=== PATIENT | female | born 1965 | race Caucasian/White ===

== ENCOUNTER → 2018-06-01 16:59 | Outpatient (CLI) | payer MEDICAID, SELFPAY ==
--- NOTE | 2018-06-01 17:11 | XR_ITS ---
XR chest 2V HISTORY: ITS.REASON: COUGH, WEIGHT LOSS, DYSPNEA, shortness of breath, history of smoking ORDERING PHYSICIAN: Kassandra Earl PATIENT AGE: 52 years COMPARISON: None FINDINGS: The cardiomediastinal silhouette and pulmonary vascularity are within normal limits. The lungs are clear without infiltrates, suspicious nodules, or pleural effusions. There is mild hyperinflation with attenuation of the peripheral pulmonary vessels suggesting COPD. There is a nodular opacity at both 6 interspaces anteriorly which may be due to nipple shadows. No acute bony abnormalities. IMPRESSION: 1. No acute finding. 2. COPD 3. Possible nipple shadows which may be confirmed with nipple markers
[2018-06-01 17:16] LABS: Basophils % 0.3 % (0.1-2.0); Eosinophils # 0.1 K/mm3 (0.0-0.4); Eosinophils % 1.7 % (0.1-12.0); Hematocrit 47.8 % (37.0-47.0); Hemoglobin 15.2 g/dL (12.2-16.2); Lymphocytes # 2.8 K/mm3 (0.7-4.5); Lymphocytes % 40.6 K/mm3 (10-50); Mean Corpuscular HGB Conc 31.8 g/dL (31.8-35.4); Mean Corpuscular Hemoglobin 29.2 pg (27.0-31.2); Mean Corpuscular Volume 91.8 fl (81-99); Mean Platelet Volume 7.3 fl (7.4-10.4); Monocytes # 0.4 K/mm3 (0.1-1.0); Monocytes % 5.3 % (1.7-9.3); Neutrophils # 3.6 K/mm3 (1.8-7.8); Platelet Count 247 K/mm3 (142-424); Red Cell Distribution Width 12.8 % (11.5-17.5); White Blood Count 6.9 K/mm3 (4.8-10.8)
[2018-06-01 18:03] LABS: Alanine Aminotransferase 20 U/L (12-78); Albumin Level 4.1 gm/dL (3.4-5.0); Albumin/Globulin Ratio 1.5 (1.1-1.8); Alkaline Phosphatase 64 U/L (46-116); Anion Gap 11.8 mEq/L (5-15); Aspartate Amino Transferase 10 U/L (15-37); Bilirubin,Total 0.5 mg/dL (0.2-1.0); Blood Urea Nitrogen 9 mg/dL (7-18); Calcium 9.4 mg/dL (8.5-10.1); Carbon Dioxide 31 mmol/L (21.0-32.0); Chloride 107 mmol/L (98-107); Creatinine,Serum 0.94 mg/dL (0.55-1.02); Estimated Glomerular Filt Rate 62 ml/min (>60); GFR (African American) 75 ML/MIN (>60); Globulin 2.8 gm/dl (1.3-3.2); Glucose 91 mg/dL (74-106); Potassium 4.8 mmoL/L (3.5-5.1); Sodium 145 mmol/L (136-145); Thyroid Stimulating Hormone 1.52 uIU/ml (0.358-3.740); Total Protein,Serum 6.9 gm/dL (6.4-8.2)
== END ==
PROVIDERS: PCP Nurse Practitioner Family; Visit Provider Nurse Practitioner Family
DX: R06.09 Other forms of dyspnea (principal); R63.4 Abnormal weight loss; R05 Cough
CPT/HCPCS: 36415; 71046; 80053; 84443; 85025

== ENCOUNTER → 2018-06-07 08:16 | Outpatient (CLI) | payer MEDICAID, SELFPAY | PROVIDERS: Family Provider Internal Medicine Adolescent Medicine; PCP Nurse Practitioner Family; Visit Provider Nurse Practitioner Family | DX: R06.09 Other forms of dyspnea (principal) | CPT/HCPCS: 93017 ==

== ENCOUNTER → 2018-09-15 08:41 | Outpatient (CLI) | payer MEDICAID, SELFPAY ==
--- NOTE | 2018-09-15 08:44 | FL_ITS ---
FL barium enema double contrast CLINICAL INDICATION: Recent colonoscopy with polyps, pain ITS.REASON: stoamch pain ORDERING PHYSICIAN: Carlos Casey MD PATIENT AGE: 52 years Comparison: None Fluoroscopy time: 2 minutes 25 seconds FINDINGS: The colon was visualized from rectum to cecum with mild reflux of contrast into the terminal ileum. No constricting lesions or fixed polypoid filling defects are evident. There are a few diverticula within the proximal sigmoid colon. IMPRESSION: 1. Mild diverticulosis of the sigmoid colon. 2. Otherwise negative air contrast barium
== END ==
PROVIDERS: PCP Nurse Practitioner Family; Visit Provider Surgery
DX: R63.4 Abnormal weight loss (principal)
CPT/HCPCS: 74270

== ENCOUNTER → 2019-03-28 12:37 | Outpatient (CLI) | payer MEDICAID, SELFPAY ==
[2019-03-28 13:21] LABS: Basophils % 0.2 % (0.1-2.0); Eosinophils # 0.1 K/mm3 (0.0-0.4); Eosinophils % 1.2 % (0.1-12.0); Hematocrit 50.1 % (37.0-47.0); Lymphocytes # 2.2 K/mm3 (0.7-4.5); Lymphocytes % 34.6 % (10-50); Mean Corpuscular Volume 93.6 fl (81-99); Mean Platelet Volume 7.9 fl (7.4-10.4); Monocytes # 0.3 K/mm3 (0.1-1.0); Monocytes % 5.3 % (1.7-9.3); Neutrophils # 3.7 K/mm3 (1.8-7.8); Neutrophils % 58.7 % (37.0-80.0); Platelet Count 260 K/mm3 (142-424); Red Blood Count 5.35 M/mm3 (4.20-5.40); Red Cell Distribution Width 12.7 % (11.5-17.5); White Blood Count 6.3 K/mm3 (4.8-10.8)
[2019-03-28 13:58] LABS: Alanine Aminotransferase 25 U/L (12-78); Albumin Level 4.2 gm/dL (3.4-5.0); Albumin/Globulin Ratio 1.4 (1.1-1.8); Alkaline Phosphatase 66 U/L (46-116); Anion Gap 13.8 mEq/L (5-15); Aspartate Amino Transferase 15 U/L (15-37); Bilirubin,Total 0.6 mg/dL (0.2-1.0); Blood Urea Nitrogen 11 mg/dL (7-18); Calcium 9.5 mg/dL (8.5-10.1); Carbon Dioxide 29 mmol/L (21.0-32.0); Chloride 106 mmol/L (98-107); Creatinine,Serum 0.79 mg/dL (0.55-1.02); Estimated Glomerular Filt Rate 76 ml/min (>60); Free Thyroxine Index 2.5 ug/dL (5.93-13.13); GFR (African American) 92 ML/MIN (>60); Glucose 100 mg/dL (74-106); Potassium 4.8 mmoL/L (3.5-5.1); Sodium 144 mmol/L (136-145); T4 (Thyroxine) 7.8 ug/dl (4.7-13.3); Thyroid Stimulating Hormone 1.49 uIU/ml (0.358-3.740); Total Protein,Serum 7.2 gm/dL (6.4-8.2); Triiodothryronine (T3) Uptake 32 % (31-39)
[2019-03-29 16:26] LABS: Vitamin B12 341 pg/mL (232-1245); Vitamin D 25 Hydroxy 37.8 ng/mL (30.0-100.0)
== END ==
PROVIDERS: Visit Provider Internal Medicine Adolescent Medicine
DX: K29.90 Gastroduodenitis, unspecified, without bleeding (principal); E53.8 Deficiency of other specified B group vitamins; R63.4 Abnormal weight loss
CPT/HCPCS: 36415; 80053; 82607; 82652; 84436; 84443; 84479; 85025

== ENCOUNTER → 2020-08-14 15:46 | Outpatient (CLI) | payer OTHER, SELFPAY ==
[2020-08-14 17:46] LABS: Basophils # 0.1 K/mm3 (0-0.2); Basophils % 0.7 % (0.1-2.0); Eosinophils # 0.2 K/mm3 (0.0-0.4); Eosinophils % 2.4 % (0.1-12.0); Hematocrit 48.3 % (37.0-47.0); Hemoglobin 15.9 g/dL (12.2-16.2); Lymphocytes # 3.7 K/mm3 (0.7-4.5); Lymphocytes % 47.4 % (10-50); Mean Corpuscular Hemoglobin 30.5 pg (27.0-31.2); Mean Corpuscular Volume 92.5 fl (81-99); Mean Platelet Volume 8.1 fl (7.4-10.4); Monocytes # 0.5 K/mm3 (0.1-1.0); Monocytes % 6.4 % (1.7-9.3); Neutrophils # 3.3 K/mm3 (1.8-7.8); Neutrophils % 43.1 % (37.0-80.0); Platelet Count 272 K/mm3 (142-424); Red Blood Count 5.22 M/mm3 (4.20-5.40); Red Cell Distribution Width 13.3 % (11.5-17.5); White Blood Count 7.7 K/mm3 (4.8-10.8)
[2020-08-14 20:09] LABS: Chloride 105 mmol/L (98-107); Potassium 4.5 mmoL/L (3.5-5.1); Sodium 141 mmol/L (136-145)
[2020-08-14 20:11] LABS: Blood Urea Nitrogen 14 mg/dl (7-17); Estimated Glomerular Filt Rate 65 ml/min (>60); GFR (African American) 79 ML/MIN (>60)
[2020-08-14 20:12] LABS: Alanine Aminotransferase 11 U/L (12-78); Albumin Level 4.3 g/dl (3.5-5.0); Albumin/Globulin Ratio 1.6 (1.1-1.8); Alkaline Phosphatase 57 U/L (38-126); Anion Gap 10.5 mEq/L (5-15); Aspartate Amino Transferase 22 U/L (14-36); Bilirubin,Total 0.5 mg/dl (0.2-1.3); Calcium 9.7 mg/dl (8.4-10.2); Carbon Dioxide 30 mmol/L (22.0-30.0); Globulin 2.7 g/dL (1.3-3.2); Glucose 84 mg/dl (74-100)
[2020-08-14 20:42] LABS: Thyroid Stimulating Hormone 1.35 uIU/mL (0.465-4.68)
== END ==
PROVIDERS: PCP Nurse Practitioner Family; Visit Provider Nurse Practitioner Family
DX: R42 Dizziness and giddiness (principal); R00.2 Palpitations; R40.4 Transient alteration of awareness
CPT/HCPCS: 36415; 80053; 84443; 85025; 93270

== ENCOUNTER → 2020-08-27 09:32 | Outpatient (CLI) | payer OTHER, SELFPAY ==
--- NOTE | 2020-08-27 | CA_ITS ---
APPROVED REPORT Sports Development Officer: CT Laterality: Bilateral Study Quality: Good Indications: Dizziness and Vertigo Risk Factors Smoking Doppler Spectral Velocity Analysis ECA (R) 84.50/ cm/s ECA (L) 56.00/ cm/s dICA (R) 63.60/25.10 cm/s dICA (L) 69.50/31.00 cm/s Marsha (R) 54.00/19.80 cm/s Marsha (L) 79.70/28.90 cm/s pICA (R) 60.40/23.50 cm/s pICA (L) 52.20/24.40 cm/s dCCA (R) 56.60/17.00 cm/s dCCA (L) 44.80/13.30 cm/s pCCA (R) 60.50/19.60 cm/s pCCA (L) 61.50/13.40 cm/s Vert (R) 34.20/ cm/s Vert (L) 42.40/ cm/s ICA/CCA 1.10 ICA/CCA 1.80 Findings Duplex evaluation demonstrates stenosis of the right proximal internal carotid artery <20%. Duplex evaluation demonstrates stenosis of the left proximal internal carotid artery <20%. Duplex evaluation demonstrates antegrade flow of the bilateral Vertebral Arteries. Conclusion Duplex evaluation demonstrates stenosis of the right proximal internal carotid artery <20%. Duplex evaluation demonstrates stenosis of the left proximal internal carotid artery <20%. Duplex evaluation demonstrates antegrade flow of the bilateral Vertebral Arteries. Electronically signed by : Jossue Ospina MD 08/27/2020 16:20:17
== END ==
PROVIDERS: PCP Nurse Practitioner Family; Visit Provider Nurse Practitioner Family
DX: R42 Dizziness and giddiness (principal)
CPT/HCPCS: 93306; 93880

== ENCOUNTER → 2021-07-01 09:10 | Outpatient (CLI) | payer OTHER, SELFPAY | PROVIDERS: PCP Nurse Practitioner Family; Visit Provider Nurse Practitioner | DX: Z20.822 Contact with and (suspected) exposure to COVID-19 (principal) | CPT/HCPCS: C9803; U0003; U0005 ==

== ENCOUNTER → 2021-09-07 13:11 | Outpatient (CLI) | payer OTHER, SELFPAY | PROVIDERS: PCP Nurse Practitioner Family; Visit Provider Nurse Practitioner Family | DX: Z20.822 Contact with and (suspected) exposure to COVID-19 (principal) | CPT/HCPCS: C9803; U0003; U0005 ==

== ENCOUNTER → 2022-04-19 09:38 | Outpatient (CLI) | payer OTHER, SELFPAY | PROVIDERS: PCP Nurse Practitioner Family; Visit Provider Surgery | DX: Z01.812 Encounter for preprocedural laboratory examination (principal); Z20.822 Contact with and (suspected) exposure to COVID-19; Z12.11 Encounter for screening for malignant neoplasm of colon; Z86.010 Personal history of colon polyps | CPT/HCPCS: C9803; U0003; U0005 ==

== ENCOUNTER 2022-04-22 09:23 | Day surgery (SDC) | payer OTHER, SELFPAY ==
[2022-04-18 11:34] VITALS: BMI 20.2
[2022-04-22] VITALS (7 sets, daily range): BP systolic 107–134; BP diastolic 59–90; PULSE 53–81; RESP 18; TEMP 36.1–36.2; O2SAT 95–100
--- NOTE | 2022-04-22 10:01 | P.PN_ITS ---
[facility] Anesthesia Checklist - Patient Identification Patient Identification: Arm Band - Structural Data Admitted From: Home Planned Operative Procedure/s: Colonoscopy Consent for Planned Operative Procedure(s) Verified: Yes - NPO Status Verified Time NPO: 05:30 (Prep) - Additional verifications Anesthesia Reactions: No Hx Blood Transfusions: No Blood Transfusion Reaction: No - Airway Assessment C-Spine Mobility Assessed: Yes TMJ Mobility Assessed: Yes Dentition: Poor Dentition - Neurological Assessment Level of Consciousness: Awake Hx Seizures: No Numbness or tingling in extremities: No - Anesthesia Plan Anesthesia Risk discussed: Yes Anesthesia Plan: Verified ASA Class: I Anesthesia Type: MAC [facility] History I have reviewed the patient's past medical history: Yes Medical History: Reports:: Gastroesophageal Reflux Disease(GERD) Denies:: Cancer, Diabetes Mellitus Type 1, Diabetes Mellitus Type 2, Hypertension, Internal Pacemaker, Lung Disease, MRSA, Seizures *Have you ever received a pneumonia vaccine?: No *Have you received a flu vaccine this season?: No Other Medical History: Denies: Blood Transfusion Reaction Anesthesia experience/problems:: None Laterality Cases: Left: Lumpectomy Other Surgeries: Yes: Colonoscopy, EGD, Other. No: Pacemaker Amputation: No - *Social History Last grade of school completed: 9th or 10th Smoking Status: Current every day smoker Tobacco Type: cigarettes # Packs/Day (cigarettes): 1 Alcohol Intake: never Substance Use Type: denies use *Occupational Status:: employed Housing: house Household Members: spouse *Travel in the last 8 weeks: None Family Hx:: No significant family history
--- NOTE | 2022-04-22 10:57 | HMH.SCOPE ---
- Procedure: Date: 04/22/22 Patient Date of :: 1965 Procedure Performed:: Colonoscopy with polypectomy Indications:: History of colon polyps Diverticulosis Note: Prior large complex adenomatous polyp excised at 15 cm (tattoo placed). Most recent colonoscopy in August 2018 revealed this site to be without concerning change. A new sessile serrated adenoma close to the ileocecal valve was removed. Tubular adenomas from the transverse colon and at 30 cm were also removed. Fairly severe spasticity and tortuosity were confirmed and a follow-up barium enema was completed. Barium enema revealed sigmoid diverticulosis but was otherwise normal. Performing Provider:: Carlos Casey MD Referring Provider:: . Sedation:: Monitored anesthesia care Procedure:: After informed consent was obtained the patient was taken to the endoscopy suite. Sedation ensued after the patient was transferred to the left lateral decubitus position. Pulse, blood pressure, and oxygen saturation were monitored throughout the procedure. Digital rectal exam revealed no significant abnormality. The colonoscope was placed in position. The entire colon was evaluated. The colonoscope was carefully removed and the patient was transferred to recovery in stable condition. Please see findings and specimens below for detail. Findings:: Bowel preparation relatively fair Severe tortuosity (as noted on prior evaluation) Scattered sigmoid diverticulosis unchanged Tattoo site at 15 cm appeared normal Polyp at 25 cm Specimens:: Polyp at 25 cm (cold snare) Recommendations:: Timing of repeat colonoscopy is pending pathology but will likely be between 3-5 years. Complications:: No immediate Estimated blood obtained (mL): 1
== END 2022-04-22 11:50 | disposition home or self-care (01) ==
LOC: OUTP 09:25
PROVIDERS: PCP Nurse Practitioner Family; Visit Provider Surgery
PROC: 0DJD8ZZ Inspection of Lower Intestinal Tract, Via Natural or Artificial Opening Endoscopic (ICD-10-PCS; CPT 45385; principal; 2022-04-22 10:30)
DX: Z12.11 Encounter for screening for malignant neoplasm of colon (principal); K57.90 Diverticulosis of intestine, part unspecified, without perforation or abscess without bleeding; Z86.010 Personal history of colon polyps; K21.9 Gastro-esophageal reflux disease without esophagitis; Z79.899 Other long term (current) drug therapy
CPT/HCPCS: 45385

== ENCOUNTER 2022-04-27 16:12 | Emergency (ER) | payer OTHER, SELFPAY ==
[2022-04-27 16:48] VITALS: BP 113/72; PULSE 86; RESP 17; TEMP 37.2; O2SAT 97; BMI 19.9
[2022-04-27 16:52] LABS: UTC Strep Screen (Rapid) Negative (Negative)
--- NOTE | 2022-04-27 17:44 | HMH.EDUTC ---
[facility] Disposition Clinical Impression: COVID-19 Disposition: Home, Self-Care Condition on Discharge: Good Instructions: DI for COVID-19 (Suspected or Confirmed ), Preventing the Spread of Coronavirus Discharge Instructions Additional Instructions: Drink plenty of fluids. Take tylenol or ibuprofen for pain or fever. Take the medications as directed. Follow up with your regular doctor. GO TO THE ER FOR ANY WORSENING SYMPTOMS Prescriptions: Ondansetron [Zofran 4mg ODT] 4 mg PO Q8HP PRN #20 tab PRN Reason: Nausea Transmission Status: Received by [id number] Benzonatate [Benzonatate 100mg cap] 100 mg PO TIDP PRN #30 cap PRN Reason: Cough Transmission Status: Received by [id number] Nirmatrelvir/Ritonavir [Paxlovid 2X150 mg-100 mg (Eua)] 1 packet PO DIRECTED 5 Days #1 packet Transmission Status: Received by [id number] Referrals: Khadijah Mejia APRN [Primary Care Provider] - Forms: Work/School Release Time of Disposition: 17:45 Medical Decision Making - Medical Records Medical records reviewed: No: I reviewed the patient's medical records. - Romero Inquiry Pt receiving controlled substance: No Vital Signs: 04/27/22 16:48 04/27/22 17:47 Temperature 98.9 F 98.9 F Temperature Source Oral Pulse Rate 86 Pulse Rate [Left] 86 Respiratory Rate 17 17 Blood Pressure 113/72 Blood Pressure [Right Arm] 113/72 Blood Pressure Mean [Right Arm] 85 02 Sat by Pulse Oximetry 97 - Lab Data Lab Results 04/27/22 16:42: Strep Scn Rapid Clinic Negative Orders (Tests/Meds): ORDERS Category Date Time Status Strep Screen Confirmation Stat Micro 04/27/22 16:42 Received [facility] HPI - General Stated complaint: Covid test, Sore throat chills,HOPKINS Body Aches Time Seen by Provider: 04/27/22 16:50 Mode of Arrival: Ambulatory Source of Information: Patient Limitations: No Limitations Description of Symptoms (Recalled from Triage Doc. by RN): patient had an at home positive covid test. symptoms began last night and include sore throat, chills, headache, body aches. HEENT Symptoms (Recalled from RN notes): Yes Resp Symptoms (Recalled from RN notes): Yes Skin Symptoms (Recalled from RN notes): No MS Symptoms (Recalled from RN notes): No Functional Status (Recalled from RN notes): n/a - History of Present Illness Provider Complaint: She has had sinus congestion, sore throat and a runny nose since yesterday. She tested positive on a home covid test, but she needs a pcr test for her employer. - Related Data Home Medications Medication Instructions Recorded Confirmed Famotidine [Pepcid AC] 20 mg PO DAILY 04/18/22 04/22/22 Previous Rx's Medication Instructions Recorded Benzonatate [Benzonatate 100mg 100 mg PO TIDP PRN #30 cap 04/27/22 cap] Nirmatrelvir/Ritonavir [Paxlovid 1 packet PO DIRECTED 5 Days #1 04/27/22 2X150 mg-100 mg (Eua)] packet Ondansetron [Zofran 4mg ODT] 4 mg PO Q8HP PRN #20 tab 04/27/22 Allergies Allergy/AdvReac Type Severity Reaction Status Date / Time No Known Allergies Allergy Verified 04/27/22 16:51 - Worker's Comp Is this a Worker's Comp case?: No [facility] History - Hepatitis A Screen Attestation statement:: This patient has been screened for Hepatitis A risk factors. I have reviewed the patient's past medical history: Yes Medical History: Reports:: Gastroesophageal Reflux Disease(GERD) Denies:: Cancer, Diabetes Mellitus Type 1, Diabetes Mellitus Type 2, Hypertension, Internal Pacemaker, Lung Disease, MRSA, Seizures Other Medical History: Denies: Blood Transfusion Reaction Laterality Cases: Left: Lumpectomy Other Surgeries: Yes: Colonoscopy, EGD, Other. No: Pacemaker Amputation: No - Social History Smoking Status: Current every day smoker Tobacco Type: cigarettes # Packs/Day (cigarettes): 1 Alcohol Intake: never Substance Use Type: denies use Occupational Status: employed Housing: hous
[2022-04-27 17:47] VITALS: BP 113/72; PULSE 86; RESP 17; TEMP 37.2
== END 2022-04-27 17:47 | disposition home or self-care (01) ==
PROVIDERS: Emergency Provider Nurse Practitioner Family; PCP Nurse Practitioner Family
DX: U07.1 COVID-19 (principal)
CPT/HCPCS: 87880; 99212; C9803; G0463; U0003; U0005

== ENCOUNTER → 2022-07-14 14:57 | Outpatient (CLI) | payer OTHER, SELFPAY ==
--- NOTE | 2022-07-14 15:01 | MM_ITS ---
PROCEDURE INFORMATION: Exam: MG Bilateral Screening 3D Mammography Exam date and time: 07/14/2022 3:13 PM Age: 56 years old Clinical indication: Screening examination. History of paternal aunts and paternal cousins with breast cancer. TECHNIQUE: Imaging protocol: Bilateral Screening tomosynthesis and 2D mammography including computer-aided detection (CAD) when performed. Some limitation positioning related to the pectoral muscle and MLO views. COMPARISON: 1. MG DMDXUR DIG MAMM-DX UNI-RT W/CAD 07/06/2017 1:45 PM 2. MG DMSB DIG MAMM-SCREEN CARO W/CAD 12/24/2016 3:52 PM 3. MG DMSB DIGITAL MAMM-SCREEN BILATERAL 11/22/2012 1:18 PM 4. MG DIGMAMMS MAMMOGRAM SCREEN-AUTO CLEANER N/C 02/21/2010 1:50 PM FINDINGS: MAMMOGRAPHY: Breast composition: The breasts are heterogeneously dense, which may obscure small masses. Mass: No suspicious mass. Architectural distortion: Stable mild architectural distortion in the upper outer left breast since 02/21/2010, history of previous cyst aspiration. Calcifications: No suspicious calcifications. Asymmetric density: None. Skin thickening: None. Axillary adenopathy: None. IMPRESSION: No mammographic evidence of malignancy. Annual screening is recommended unless otherwise clinically indicated. ASSESSMENT: BI-RADS Category 2: Benign
== END ==
PROVIDERS: PCP Nurse Practitioner Family; Visit Provider Nurse Practitioner Family
DX: Z12.31 Encounter for screening mammogram for malignant neoplasm of breast (principal)
CPT/HCPCS: 77063; 77067

== ENCOUNTER 2022-08-30 10:09 | Emergency (ER) | payer OTHER, SELFPAY ==
--- NOTE | 2022-08-30 12:35 | EXP.UTC ---
Discharge Plan Disposition Patient Disposition: Home, Self-Care Condition: Good Prescriptions Prescriptions: New azithromycin [Zithromax] 250 mg tablet 250 mg PO UD DOSE PK Qty: 6 0RF Rx Instructions: Take two (2) tablets today, then one (1) tablet days #2 thru #5 benzonatate [benzonatate] 100 mg capsule 100 mg PO TIDP PRN (Reason: Cough) Qty: 30 0RF methylprednisolone 4 mg Tablets,Dose Pack 4 mg PO DIRECTED Qty: 21 0RF No Action famotidine 20 MG tablet 20 mg PO DAILY benzonatate 100 MG capsule 100 mg PO TIDP PRN (Reason: Cough) Qty: 30 0RF ondansetron 4 MG tablet,disintegrating 4 mg PO Q8HP PRN (Reason: Nausea) Qty: 20 0RF nirmatrelvir-ritonavir 1 EACH tablet 1 packet PO DIRECTED 5 Days Qty: 1 0RF Activity Restrictions/Add. Instructions Additional Instructions/Restrictions: Drink plenty of fluids. Take tylenol or ibuprofen for pain or fever. Take the medications as directed. Follow up with your regular doctor. GO TO THE ER FOR ANY WORSENING SYMPTOMS Clinical Impressions Clinical Impression: Acute viral syndrome, Bronchitis Stand Alone Forms Stand Alone Forms: Work/School Release Instructions Patient Instructions: DI for Acute Bronchitis, DI for Viral Syndrome Discharge ED Provider: Bill Faustin [facility] [place] HPI General Stated complaint: Congestion,Cough,Sore throat Time Seen by Provider: 08/30/22 12:34 History of Present Illness Provider Complaint: She has had body aches, chills, fever, scratchy sore throat and chest congestion for the past 2 days. Related Data Home Medications Medication Instructions Recorded Confirmed famotidine 20 mg tablet 20 mg PO DAILY GERD 04/18/22 04/22/22 Previous Rx's Medication Instructions Recorded benzonatate 100 mg capsule 100 mg PO TIDP PRN Cough #30 caps 04/27/22 nirmatrelvir 300 mg (150 mg 1 packet PO DIRECTED 5 days #1 04/27/22 x2)-ritonavir 100 mg tablet,dose packet pack(EUA) ondansetron 4 mg disintegrating 4 mg PO Q8HP PRN Nausea #20 tabs 04/27/22 tablet azithromycin 250 mg tablet 250 mg PO UD DOSE PK #6 tabs 08/30/22 (Zithromax) benzonatate 100 mg capsule 100 mg PO TIDP PRN Cough #30 caps 08/30/22 methylprednisolone 4 mg tablets in 4 mg PO DIRECTED #21 tabs 08/30/22 a dose pack Allergies Allergy/AdvReac Type Severity Reaction Status Date / Time No Known Allergies Allergy Verified 08/30/22 12:48 PFSH [facility] Disclaimer: The information contained in this section may have been updated after the patient was seen, as this information can be updated by other users. Social History Smoking Status: Current every day smoker tobacco type: cigarettes packs per day: 1 alcohol intake: never substance use type: denies use current occupational status: employed Travel in the last 8 weeks: None household members: spouse housing: house current occupational exposures/hazards: No caffeine: Yes ROS Obtained: Yes All systems reviewed & no additional complaints except as documented Constitutional Constitutional: Reports chills and Reports fever(s) Eyes Eyes: Denies eye discharge ENT Ears, Nose, Mouth, and Throat: Reports as per HPI Cardiovascular Cardiovascular: Denies chest pain Respiratory Respiratory: Denies chest congestion and Reports cough Gastrointestinal Gastrointestingal: Reports nausea; Denies abdominal pain, constipation, cramping, diarrhea or vomiting Musculoskeletal Musculoskeletal: Denies arthralgias Integumentary/Breasts Skin/Breast: Denies rash Neurologic Neurologic: Denies paresthesias Physical Exam General General appearance: alert and in no apparent distress Head Head exam: atraumatic, normocephalic and normal inspection Eye Eye exam: Present normal appearance, PERRL and EOMI ENT ENT exam: Present normal exam, normal oropharynx, mucous membranes moist, TM's normal bilaterally and normal
[2022-08-30 12:46] VITALS: BP 134/77; PULSE 66; RESP 16; TEMP 36.6; O2SAT 98; BMI 21.2
[2022-08-30 12:48] LABS: UTC Influenza A Antigen Negative (Negative); UTC Influenza B Antigen Negative (Negative)
[2022-08-30 13:04] VITALS: BP 134/77; PULSE 66; RESP 16; TEMP 36.6
[2022-08-30 13:06] LABS: Adenovirus,PCR Not Detected (NotDetected); Bordetella Pertussis Not Detected (NotDetected); Chlamydophila Pneumoniae, PCR Not Detected (NotDetected); Coronavirus 19, PCR Not Detected (NotDetected); Coronavirus 229E Not Detected (NotDetected); Coronavirus OC43 Not Detected (NotDetected); Coronovirus HKU1,PCR Not Detected (NotDetected); Human Metapneumovirus Not Detected (NotDetected); Influenza A, PCR Not Detected (NotDetected); Influenza AH1, 2009 Not Detected (NotDetected); Influenza AH1, PCR Not Detected (NotDetected); Influenza AH3,PCR Not Detected (NotDetected); Influenza B, PCR Not Detected (NotDetected); Mycoplasma Pneumoniae, PCR Not Detected (NotDetected); Parainfluenza 1, PCR Not Detected (NotDetected); Parainfluenza 2, PCR Not Detected (NotDetected); Parainfluenza 3, PCR Not Detected (NotDetected); Parainfluenza 4, PCR Not Detected (NotDetected); Respiratory Syncytial Virus Not Detected (NotDetected); Rhinovirus/Enterovirus Not Detected (NotDetected)
[2022-08-30 21:33] LABS: Coronavirus NL63 Detected (NotDetected)
== END 2022-08-30 13:04 | disposition home or self-care (01) ==
PROVIDERS: Emergency Provider Nurse Practitioner Family; PCP Nurse Practitioner Family
DX: U07.1 COVID-19 (principal); J02.9 Acute pharyngitis, unspecified; R50.9 Fever, unspecified; R09.81 Nasal congestion; R11.0 Nausea; R05.9 Cough, unspecified; Z79.52 Long term (current) use of systemic steroids; Z79.899 Other long term (current) drug therapy
CPT/HCPCS: 87581; 87632; 87798; 87804; 99213; C9803; G0463; U0003; U0005

== ENCOUNTER 2023-01-16 18:32 | Emergency (ER) | payer OTHER, SELFPAY ==
--- NOTE | 2023-01-16 18:27 | ECG_ITS ---
APPROVED REPORT Exam: Resting ECG HR:64 bpm ECG Measurements Heart Rate 64 AXES OR 164 P 80 QRSd 74 QRS 81 QT 398 T 73 QTc 407 Conclusion SINUS RHYTHM NORMAL ECG UNCONFIRMED REPORT Electronically signed by : Zeb Rivero MD 01/17/2023 15:40:15
[2023-01-16 18:33] VITALS: BP 144/74; PULSE 62; RESP 19; TEMP 36.6; O2SAT 97; BMI 20.6
--- NOTE | 2023-01-16 18:40 | XR_ITS ---
PROCEDURE INFORMATION: Exam: XR Chest Exam date and time: 01/16/2023 6:37 PM Age: 57 years old Clinical indication: Pain; Chest pressure; Additional info: Chest tighness TECHNIQUE: Imaging protocol: Radiologic exam of the chest. Views: 2 views. COMPARISON: CR CXR2V XR chest 2V 06/01/2018 5:14 PM FINDINGS: Lungs: Right lower lobe calcified granulomas unchanged. No consolidation. Pleural spaces: Unremarkable. No pleural effusion. No pneumothorax. Heart/Mediastinum: Unremarkable. No cardiomegaly. Bones/joints: Unremarkable. IMPRESSION: No acute findings.
--- NOTE | 2023-01-16 18:40 | HMH.EDCP ---
Discharge Plan Disposition Patient Disposition: Home, Self-Care Chief Complaint: Chest Pain Prescriptions Prescriptions: No Action famotidine 20 MG tablet 20 mg PO DAILY benzonatate 100 MG capsule 100 mg PO TIDP PRN (Reason: Cough) Qty: 30 0RF ondansetron 4 MG tablet,disintegrating 4 mg PO Q8HP PRN (Reason: Nausea) Qty: 20 0RF nirmatrelvir-ritonavir 1 EACH tablet 1 packet PO DIRECTED 5 Days Qty: 1 0RF azithromycin [Zithromax] 250 mg tablet 250 mg PO UD DOSE PK Qty: 6 0RF Rx Instructions: Take two (2) tablets today, then one (1) tablet days #2 thru #5 benzonatate [benzonatate] 100 mg capsule 100 mg PO TIDP PRN (Reason: Cough) Qty: 30 0RF methylprednisolone 4 mg Tablets,Dose Pack 4 mg PO DIRECTED Qty: 21 0RF Referrals Follow up/Referrals: Khadijah Mejia APRN [Primary Care Provider] - See instructions Activity Restrictions/Add. Instructions Additional Instructions/Restrictions: Your work-up today in the emergency department did not reveal any life-threatening conditions. I believe your chest pain is secondary to costochondritis. Please follow-up with your primary care doctor in about 2 to 3 days. Follow-up with a design tech in about 1 week. Return to the emergency department immediately if you feel worse in any way. You can take [id number] Tylenol and/or Motrin for your pain. Clinical Impressions Clinical Impression: Atypical chest pain, Acute costochondritis Instructions Patient Instructions: DI for Atypical Chest Pain Discharge ED Provider: Mariann Alejandro Chest Pain [facility] General Chief Complaint: Chest Pain Stated Complaint: chest tightness Time Seen by Provider: 01/16/23 18:37 Mode of Arrival: Family Vehicle Source of Information: Patient Limitations: No Limitations History of Present Illness HPI narrative: The patient presents to the emergency department complaining of chest pain since 10 AM. The pain is worsened with movement. She denies any shortness of breath, nausea, or vomiting. The pain is constant. It does not radiate. MD complaint: chest pain DISHA Score for Non-Stemi Age of Patient: 50-59 years old Heart Rate: 50-69 bpm Systolic Blood Pressure: 120-139 mmhg Serum Creatinine: 0.40-0.79 mg/dl CHF [place] Class: I-No CHF Other Risk Factors: None Non-Stemi Risk Score: 82 Related Data Home Medications Medication Instructions Recorded Confirmed aspirin 81 mg tablet,delayed 81 mg PO DAILY [facility] 01/16/23 01/16/23 release Allergies Allergy/AdvReac Type Severity Reaction Status Date / Time No Known Allergies Allergy Verified 08/30/22 12:48 [facility] Disclaimer: The information contained in this section may have been updated after the patient was seen, as this information can be updated by other users. Social History Smoking Status: Current every day smoker tobacco type: cigarettes packs per day: 1 alcohol intake: never substance use type: denies use current occupational status: employed Travel in the last 8 weeks: None household members: spouse housing: house current occupational exposures/hazards: No caffeine: Yes ROS Obtained: Yes All systems reviewed & no additional complaints except as documented Physical Exam General General appearance: alert Head Head exam: atraumatic Eye Eye exam: Present normal appearance; Absent scleral icterus ENT ENT exam: Present normal exam Neck Neck exam: Present normal inspection and full ROM; Absent tenderness or meningismus Chest Chest inspection: Present normal inspection, symmetric chest wall rise and tenderness (There is reproducible tenderness in the anterior chest wall at the costochondral junction on both sides.) Respiratory Respiratory exam: Present normal lung sounds bilaterally; Absent respiratory distress or accessory muscle use Cardiovascular Cardiovascular exam: Present regular rate, normal r
[2023-01-16 18:46] LABS: Chloride 104 mmol/L (98-107)
[2023-01-16 18:47] LABS: Potassium 3.8 mmoL/L (3.5-5.1); Sodium 138 mmol/L (136-145)
[2023-01-16 18:50] LABS: Anion Gap 9.8 mEq/L (5-15); Blood Urea Nitrogen 11 mg/dl (7-17); Calcium 9.1 mg/dl (8.4-10.2); Carbon Dioxide 28 mmol/L (22.0-30.0); Creatinine Clearance Estimated 64 mL/min (50-200); Estimated Glomerular Filt Rate 86 ml/min (>60); GFR (African American) 104 ML/MIN (>60); Glucose 93 mg/dl (74-100)
[2023-01-16 18:52] LABS: Basophils % 0.4 % (0.1-2.0); Eosinophils # 0.1 K/mm3 (0.0-0.4); Eosinophils % 1.2 % (0.1-12.0); Hematocrit 46.9 % (37.0-47.0); Hemoglobin 15.1 g/dL (12.2-16.2); Lymphocytes # 3.7 K/mm3 (0.7-4.5); Lymphocytes % 48.6 % (10-50); Mean Corpuscular HGB Conc 32.1 g/dL (31.8-35.4); Mean Corpuscular Hemoglobin 29.4 pg (27.0-31.2); Mean Corpuscular Volume 91.4 fl (81-99); Mean Platelet Volume 7.9 fl (7.4-10.4); Monocytes # 0.5 K/mm3 (0.1-1.0); Neutrophils # 3.4 K/mm3 (1.8-7.8); Neutrophils % 43.9 % (37.0-80.0); Platelet Count 291 K/mm3 (142-424); Red Blood Count 5.13 M/mm3 (4.20-5.40); Red Cell Distribution Width 13.2 % (11.5-17.5); White Blood Count 7.7 K/mm3 (4.8-10.8)
[2023-01-16 19:03] LABS: Troponin I < 0.01 ng/ml (0.00-0.034)
[2023-01-16 19:13] VITALS: BP 128/67; PULSE 69; RESP 17; TEMP 36.5; O2SAT 98
== END 2023-01-16 19:13 | disposition home or self-care (01) ==
PROVIDERS: Emergency Provider Emergency Medicine; PCP Nurse Practitioner Family
DX: R07.89 Other chest pain (principal); M94.0 Chondrocostal junction syndrome [Tietze]; F17.210 Nicotine dependence, cigarettes, uncomplicated
CPT/HCPCS: 71046; 80048; 84484; 85025; 93005; 96374; 99285

== ENCOUNTER 2023-02-23 11:42 | Emergency (ER) | payer OTHER, SELFPAY ==
--- NOTE | 2023-02-23 13:00 | EXP.UTC ---
Discharge Plan Disposition Patient Disposition: Home, Self-Care Condition: Good Prescriptions Prescriptions: New acyclovir 800 mg tablet 800 mg PO 5XDAY 7 Days Qty: 35 0RF Rx Instructions: while awake; give 5 doses in 24 hours prednisone 10 mg tablet 10 mg PO DIRECTED 9 Days Qty: 21 0RF Rx Instructions: Take 4 tablets daily for 3 days, then take 2 tablets daily for 3 days, then take 1 tablet daily for 3 days, then stop. Referrals Follow up/Referrals: Khadijah Mejia APRN [Primary Care Provider] - See instructions Activity Restrictions/Add. Instructions Additional Instructions/Restrictions: Take tylenol or ibuprofen for pain. Take the medications as directed. Follow up with your regular doctor. GO TO THE ER FOR ANY WORSENING SYMPTOMS Clinical Impressions Clinical Impression: Shingles Instructions Patient Instructions: LAUREN Segovia for Shingles Discharge ED Provider: Bill Faustin Arline [facility] HPI General Stated complaint: possible shingles on Lt side back Time Seen by Provider: 02/23/23 13:00 History of Present Illness Provider Complaint: She c/o a painful rash on her back that goes around her left side . Related Data Previous Rx's Medication Instructions Recorded acyclovir 800 mg tablet 800 mg PO 5XDAY 7 days #35 tabs 02/23/23 prednisone 10 mg tablet 10 mg PO DIRECTED 9 days #21 02/23/23 tabs Allergies Allergy/AdvReac Type Severity Reaction Status Date / Time No Known Allergies Allergy Verified 08/30/22 12:48 [facility] Disclaimer: The information contained in this section may have been updated after the patient was seen, as this information can be updated by other users. Medical History Hyperlipidemia Kidney stone Migraine Urinary tract infection Surgical History History of cholecystectomy History of hysterectomy Family History Other No significant family history Social History Smoking Status: Current every day smoker tobacco type: cigarettes packs per day: 1 alcohol intake: never substance use type: denies use current occupational status: employed Travel in the last 8 weeks: None household members: spouse housing: house current occupational exposures/hazards: No caffeine: Yes ROS Obtained: Yes All systems reviewed & no additional complaints except as documented Constitutional Constitutional: Denies chills and Denies fever(s) Eyes Eyes: Denies eye discharge ENT Ears, Nose, Mouth, and Throat: Denies dizziness, Denies otalgia and Denies sore throat Cardiovascular Cardiovascular: Denies chest pain Respiratory Respiratory: Denies shortness of breath, Denies chest congestion, Denies cough, Denies stridor and Denies wheezing Gastrointestinal Gastrointestingal: Denies nausea or vomiting Musculoskeletal Musculoskeletal: Reports system reviewed and no additional complaints, except as documented and Denies arthralgias Integumentary/Breasts Skin/Breast: Reports as per HPI and Reports rash Neurologic Neurologic: Denies dizziness and Denies paresthesias Allergic/Immunologic Allergic/Immunologic: Denies wheezing Physical Exam General General appearance: alert and in no apparent distress Head Head exam: atraumatic, normocephalic and normal inspection Eye Eye exam: Present normal appearance, PERRL and EOMI ENT ENT exam: Present normal exam, normal oropharynx, mucous membranes moist, TM's normal bilaterally and normal external ear exam Neck Neck exam: Present normal inspection, full ROM and trachea midline; Absent meningismus or lymphadenopathy Chest Chest inspection: Present normal inspection and symmetric chest wall rise; Absent tenderness Respiratory Respiratory exam: Present normal lung sounds bilaterally; Absent respirator
[2023-02-23 13:04] VITALS: BP 137/79; PULSE 63; RESP 18; TEMP 36.8; O2SAT 95; BMI 21.2
[2023-02-23 13:34] VITALS: BP 137/79; PULSE 95; RESP 16; TEMP 36.8; O2SAT 95
== END 2023-02-23 13:35 | disposition home or self-care (01) ==
PROVIDERS: Emergency Provider Nurse Practitioner Family; PCP Nurse Practitioner Family
DX: B02.9 Zoster without complications (principal); F17.210 Nicotine dependence, cigarettes, uncomplicated; E78.5 Hyperlipidemia, unspecified
CPT/HCPCS: 99212; 99214; G0463

== ENCOUNTER → 2023-04-07 12:48 | Outpatient (CLI) | payer OTHER, SELFPAY | PROVIDERS: PCP Nurse Practitioner Family; Visit Provider Nurse Practitioner Family | DX: G47.33 Obstructive sleep apnea (adult) (pediatric) (principal); R40.0 Somnolence; R06.83 Snoring | CPT/HCPCS: G0399 ==

== ENCOUNTER → 2023-07-20 10:13 | Outpatient (CLI) | payer OTHER, SELFPAY ==
--- NOTE | 2023-07-20 10:17 | MM_ITS ---
PROCEDURE INFORMATION: Exam: MG Bilateral Screening 3D Mammography Exam date and time: 07/20/2023 10:15 AM Age: 57 years old Clinical indication: Screening examination . Family history of breast carcinoma. TECHNIQUE: Imaging protocol: Bilateral Screening tomosynthesis and 2D mammography including computer-aided detection (CAD) when performed. COMPARISON: 1. MG MM DIG SCREENING MAMM BI W/CAD 07/14/2022 3:13 PM 2. MG DMDXUR DIG MAMM-DX UNI-RT W/CAD 07/06/2017 1:45 PM 3. MG DMSB DIG MAMM-SCREEN CARO W/CAD 12/24/2016 3:52 PM FINDINGS: MAMMOGRAPHY: Breast composition: The breasts are heterogeneously dense, which may obscure small masses. Mass: No suspicious masses. Architectural distortion: No suspicious distortion. Calcifications: No suspicious calcifications. Asymmetric density: None. Skin thickening: None. Axillary adenopathy: None. IMPRESSION: 1. No mammographic evidence of malignancy. Annual screening is recommended unless otherwise clinically indicated. 2. Given the reported risk factors for this patient, a breast cancer risk assessment may prove useful for further evaluation. ASSESSMENT: BI-RADS Category 1: Negative
== END ==
PROVIDERS: PCP Nurse Practitioner Family; Visit Provider Nurse Practitioner Family
DX: Z12.31 Encounter for screening mammogram for malignant neoplasm of breast (principal)
CPT/HCPCS: 77063; 77067

== ENCOUNTER 2024-11-19 14:22 | Emergency (ER) | payer OTHER, SELFPAY ==
[2024-11-19 14:24] VITALS: BP 121/75; PULSE 72; RESP 18; TEMP 36.7; O2SAT 97; BMI 21.2
--- NOTE | 2024-11-19 14:32 | PC.NURSE ---
DR CHAVEZ AT BEDSIDE
--- NOTE | 2024-11-19 14:33 | XR_ITS ---
PROCEDURE INFORMATION: Exam: XR Right Ankle Exam date and time: 11/19/2024 2:39 PM Age: 58 years old Clinical indication: Injury or trauma; Fall; Other: Pain; Additional info: Inverted ankle, lateral mal and 5th met pain proxi TECHNIQUE: Imaging protocol: Radiologic exam of the right ankle. Views: 3 or more views. COMPARISON: No relevant prior studies available. FINDINGS: Bones/joints: There is no evidence of acute fracture.There is no evidence of malalignment or dislocation. Soft tissues: Normal. IMPRESSION: There is no evidence of acute fracture.There is no evidence of malalignment or dislocation.
--- NOTE | 2024-11-19 14:38 | PC.NURSE ---
XR AT BEDSIDE
--- NOTE | 2024-11-19 14:39 | PC.NURSE ---
Rad in room for x-ray
--- NOTE | 2024-11-19 14:42 | ED_ITS ---
Discharge Plan Disposition Patient Disposition: Home, Self-Care Chief Complaint: PAIN Prescriptions Prescriptions: No Action mecobalamin (vitamin B12) 1,000 mcg tablet,disintegrating 1,000 mcg sublingual DAILY Rx Instructions: place tablet under tongue and allow to dissolve for at least30 secs before swallowing atorvastatin 20 mg tablet 20 mg PO HS albuterol sulfate 90 mcg/actuation HFA aerosol inhaler 2 inh inhalation PRN acetaminophen 500 mg tablet 1,000 mg PO ONCE ibuprofen 400 mg tablet 400 mg PO BID fluticasone propionate 50 mcg/actuation spray,suspension 1 spray intranasal DAILY Rx Instructions: administer into each nostril aspirin [Adult Low Dose Aspirin] 81 mg tablet,delayed release (DR/EC) 81 mg PO DAILY famotidine 20 mg tablet 20 mg PO BID cyproheptadine 4 mg tablet 4 mg PO HS Qty: 30 2RF Referrals Follow up/Referrals: Khadijah Johansen APRN [Primary Care Provider] - See instructions Activity Restrictions/Add. Instructions Additional Instructions/Restrictions: Call your family doctor to establish care for this visit to the emergency department and schedule follow-up within 48 hours to ensure improvement. If you have any worsening of your condition or any other concerning signs or symptoms, return to the emergency department or your primary care doctor for further evaluation. Take Tylenol 1000 mg every 6 hours (4 times daily) and ibuprofen 400 mg every 6 hours (4 times daily) as needed with food and water to prevent GI upset and kidney damage. Clinical Impressions Clinical Impression: Ankle sprain Print Language Print Language: Danish Discharge ED Provider: [facility] Adult HPI General Chief complaint: PAIN Stated complaint: AO-11/18 1730- fall, pain and swelling R ankle Time Seen by Provider: 11/19/24 14:30 Mode of Arrival: Wheelchair Source of Information: Patient Limitations: No Limitations Description of Symptoms (Recalled from ER Triage Doc. by RN): PT REPORTS RIGHT ANKLE PAIN AND SWELLING. FOOT SLIPPED OFF LAST STEP ABOUT 1730 LAST NIGHT. PT HAS BEEN ABLE TO AMBULATE BUT PAINFUL History of Present Illness HPI narrative: Please note that above description of symptoms, in this electronic medical record under categorization of recalled from ER triage doctor by RN are reflective of an initial nursing assessment, however, is not reflective of my full history and physical exam that was personally taken and clarified. Consequentially, this preceding description of symptoms, which may include the p atient's categorized chief complaint in the EMR, do not reflect my personal clinical impression, and the ultimate description of history of present illness and patient stated complaints should be deferred to this section of the note. Unless stated otherwise or congruent with this section of the note, additional signs, symptoms, or incongruence should be interpreted as inaccurate with my clinical impression. Related Data Home Medications ?Medication ?Instructions ?Recorded ?Confirmed acetaminophen 500 mg tablet 1,000 mg PO ONCE 05/07/23 07/28/24 albuterol sulfate 90 mcg/actuation 2 inh inhalation PRN 05/07/23 07/28/24 aerosol inhaler aspirin 81 mg tablet,delayed 81 mg PO DAILY 05/07/23 07/28/24 release (Adult Low Dose Aspirin) atorvastatin 20 mg tablet 20 mg PO HS 05/07/23 07/28/24 famotidine 20 mg tablet 20 mg PO BID 05/07/23 07/28/24 fluticasone propionate 50 1 spray intranasal DAILY 05/07/23 07/28/24 mcg/actuation nasal spray,suspension ibuprofen 400 mg tablet 400 mg PO BID 05/07/23 07/28/24 mecobalamin (vitamin B12) 1,000 1,000 mcg sublingual DAILY 05/07/23 07/28/24 mcg disintegrating tablet,sublingual Previous Rx's ?Medication ?Instructions ?Recorded cyproheptadine 4 mg tablet 4 mg PO HS per [place] for chronic 06/22/23 headaches #30 tabs Allergies Allergy/AdvReac Type Severity Reaction Status Date / Time No Known Allergies Allergy Verified 07/28/24 13:03 [facility] Disclaimer: The information contained in this section may have been updated after the patient was seen, as this information can be updated by other users. Medical History Urinary tract infection Kidney stone Migraine Hyperlipidemia Surgical History History of hysterectomy History of cholecystectomy Family History Other No significant family history Social History Smoking Status: Current every day smoker tobacco type: cigarettes packs per day: 1 alcohol intake: never substance use type: denies use current occupational status: employed Travel in the last 8 weeks: None household members: spouse housing: house current occupational exposures/hazards: No caffeine: Yes Have you lived/traveled outside [place] in past 30 days?: No Contact w/someone who lives/traveled outside [place] past 30 days?: No Exposure to someone with infectious disease in past 14 days?: No Do you have a fever (greater than 100.4 F or 38 C)?: No Have you tested positive for COVID-19: No Exposed to someone with COVID-19 in past 14 days?: No Do you have a sore throat?: No Do you have a cough?: No Do you have any weakness?: No Do you have any diarrhea?: No Are you experiencing any unusual bleeding?: No Do you have any muscle aches/pain?: No Do you have any abdominal pain?: No Are you experiencing loss of taste or smell?: No Other Medical History Have you received the Flu Vaccine for this season: No Have you received the Pneumonia Vaccine: No ROS Obtained: Yes All systems reviewed & no additional complaints except as documented Physical Exam General General appearance: alert Head Head exam: atraumatic and normocephalic Eye Eye exam: Present normal appearance, PERRL and EOMI Neck Neck exam: Present normal inspection, full ROM and trachea midline Respiratory Respiratory exam: Absent respiratory distress, wheezes, stridor, accessory muscle use or prolonged expiratory phase Cardiovascular Cardiovascular exam: Present other (Pulses equal symmetric in upper and lower extremities) Abdominal Exam Abdominal exam: Present soft; Absent distention, tenderness or pulsatile mass Extremities Exam Extremities exam: Present edema and other (Edema and tenderness lateral aspect of ankle malleolus and base of fifth metatarsal) Neurological Exam Neurological exam: Present alert, oriented X3 and CN II-XII intact; Absent motor sensory deficit Skin Skin exam: Present warm and dry; Absent diaphoresis or erythema Medical Decision Making Medical Records Medical records reviewed: Yes I reviewed the patient's medical records. Screening: Per USPSTF and CDC recommendations, given the prevalence of disease in our region, it is our hospital?s policy to screen for HIV and viral Hepatitis for all patients aged 18 and over and those with ongoing risk factors. Romero Inquiry Pt receiving controlled substance: No Romero was queried for this patient: No Vital Signs: 11/19/24 14:24 Temperature 98.0 F Temperature Source Oral Pulse Rate [Radial] 72 Respiratory Rate 18 Blood Pressure [Right Arm] 121/75 Blood Pressure Mean [Right Arm] 90 Blood Pressure Source [Right Arm] Automatic Cuff Blood Pressure Position [Right Arm] Sitting 02 Sat by Pulse Oximetry 97 Oxygen Delivery Method Room Air Orders (Tests/Meds): ORDERS Category Date Time Status Ankle XR -Right minimum 3 Views [XR ankle RT min 3V] Exams 11/19/24 14:33 Taken Stat Foot XR right minimum 3 views [XR foot RT min 3V] Stat Exams 11/19/24 14:53 Taken HIV Combo Stat Lab 11/19/24 14:35 Ordered Hepatitis C Ab Qual. W/ RFX Stat Lab 11/19/24 14:35 Ordered Medical Decision Narrative: Is a 58-year-old female presenting with right lower extremity pain. Inverted her ankle yesterday, able to bear weight, but it hurts, came in for further evaluation. History obtained with patient. She has been using Tylenol, ibuprofen, ice and heat. Tenderness about lateral malleolus and base of fifth metatarsal. X-rays to be obtained. On independent interpretation, no obvious fracture. There is soft tissue swelling, but nothing that requires splinting. Because patient at baseline without signs or symptoms of clinical de compensation, deemed appropriate for discharge. Results were relayed to patient who voiced understanding and were agreeable to outpatient management and follow up. I discussed my clinical impression with patient and answered all questions. At this time, the evidence for any other entities in the differential is insufficient to warrant any further testing or ED observation. This was explained as well. Advisory was given that persistent or worsening symptoms require further evaluation. I confirmed the understanding of this discussion. Cloth Calender disclaimer Much of this encounter note is an electronic employee representative spoken language to printed text. Electronic employee representative of the spoken language may permit errors. Although I have reviewed the note, some errors may still exist. Critical Care Critical Care Time Critical Care Time: No
[2024-11-19 14:45] VITALS: BP 109/70; PULSE 76; O2SAT 97
--- NOTE | 2024-11-19 14:53 | XR_ITS ---
PROCEDURE INFORMATION: Exam: XR Right Foot Exam date and time: 11/19/2024 2:58 PM Age: 58 years old Clinical indication: Injury or trauma; Fall; Other: Pain; Additional info: Right 5th met painafter inversion injury TECHNIQUE: Imaging protocol: Radiologic exam of the right foot. Views: 3 or more views. COMPARISON: CR XR ANKLE RT MIN 3V 11/19/2024 2:39 PM FINDINGS: Bones/joints: Degenerative changes in the 1st metatarsal phalangeal joint and IP joint. Degenerative changes in the tarsal bones There is no evidence of acute fracture.There is no evidence of malalignment or dislocation. Soft tissues: Normal. IMPRESSION: Degenerative changes in the 1st metatarsal phalangeal joint and IP joint. There is no evidence of acute fracture.There is no evidence of malalignment or dislocation.
[2024-11-19 15:00] VITALS: BP 117/77; PULSE 73; O2SAT 97
[2024-11-19 15:20] VITALS: BP 119/71; PULSE 69; RESP 16; TEMP 36.6; O2SAT 96
== END 2024-11-19 15:21 | disposition home or self-care (01) ==
PROVIDERS: Emergency Provider Emergency Medicine; PCP Nurse Practitioner Family
DX: S93.401A Sprain of unspecified ligament of right ankle, initial encounter (principal); M25.571 Pain in right ankle and joints of right foot; F17.210 Nicotine dependence, cigarettes, uncomplicated; W10.8XXA Fall (on) (from) other stairs and steps, initial encounter; Y93.89 Activity, other specified; Y92.9 Unspecified place or not applicable
CPT/HCPCS: 73610; 73630; 99283

== ENCOUNTER 2025-02-06 17:23 | Emergency (ER) | payer OTHER, SELFPAY ==
--- NOTE | 2025-02-06 17:27 | ECG_ITS ---
APPROVED REPORT Exam: Resting ECG HR:63 bpm ECG Measurements Heart Rate 63 AXES NM 162 P 74 QRSd 78 QRS 76 QT 384 T 70 QTc 391 Conclusion SINUS RHYTHM MINIMAL ST DEPRESSION [0.025+ mV ST DEPRESSION] No STEMI Electronically signed by : ALEX KAMARA, 02/06/2025 19:19:38
[2025-02-06 17:28] VITALS: BP 118/62; PULSE 74; RESP 18; TEMP 36.7; O2SAT 96; BMI 20.9
--- NOTE | 2025-02-06 17:35 | ED_ITS ---
<Statement entered by Amanda Gonzalez DO - 02/06/25 20:23> I was consulted by the ANGEL, and we discussed the complexity of the problems being addressed. I approved the treatment and management plan for this patient's care in the emergency department, thus performing a substantive portion of the medical decision making. Amanda Gonzalez DO Discharge Plan Disposition Patient Disposition: Home, Self-Care Condition: Good Prescriptions Prescriptions: New pantoprazole [Protonix] 40 mg tablet,delayed release (DR/EC) 40 mg PO DAILY Qty: 30 0RF No Action mecobalamin (vitamin B12) 1,000 mcg tablet,disintegrating 1,000 mcg sublingual DAILY Rx Instructions: place tablet under tongue and allow to dissolve for at least30 secs before swallowing atorvastatin 20 mg tablet 20 mg PO HS albuterol sulfate 90 mcg/actuation HFA aerosol inhaler 2 inh inhalation PRN acetaminophen 500 mg tablet 1,000 mg PO ONCE ibuprofen 400 mg tablet 400 mg PO BID fluticasone propionate 50 mcg/actuation spray,suspension 1 spray intranasal DAILY Rx Instructions: administer into each nostril aspirin [Adult Low Dose Aspirin] 81 mg tablet,delayed release (DR/EC) 81 mg PO DAILY famotidine 20 mg tablet 20 mg PO BID cyproheptadine 4 mg tablet 4 mg PO HS Qty: 30 2RF Referrals Follow up/Referrals: Nayan Lindo II, MD [Staff Physician] - See instructions ProviderLeila MD [Primary Care Provider] - See instructions Jamir Fitzgerald MD [Staff Physician] - See instructions Activity Restrictions/Add. Instructions Additional Instructions/Restrictions: I have referred you to gastroenterology for further workup of your heartburn symptoms. Have also called in a prescription for Protonix to start taking daily. If you have any continued new or worsening signs or symptoms please follow-up with your PCP or return to the ER as needed. I have also referred you to cardiology for further cardiac evaluation given your family history. Clinical Impressions Clinical Impression: Chest pain Print Language Print Language: [place] Discharge ED Provider: Amanda Gonzalez General Adult HPI <ADITYA Mckeon - Last Filed: 02/06/25 19:38> General Chief complaint: Chest Pain Stated complaint: chest pain Time Seen by Provider: 02/06/25 17:35 Mode of Arrival: Ambulatory Source of Information: Patient Description of Symptoms (Recalled from ER Triage Doc. by RN): PT REPORTS INTERMITTENT CHEST PAIN X 1 WEEK. SEEN AT PCP, SENT FOR FURTHER EVALUATION. PT DID TAKE SOME OF HUSBANDS NITRO ON THURSDAY OR THURSDAY THAT IMPROVED PAIN. OCCASIONAL PAIN INTO LEFT ARM AND BACK OF NECK. HAS NEVER HAD THIS PAIN BEFORE. REPORTS OCCASIONAL SHORTNESS OF BREATH. DENIES N/V. DENIES PAIN AT THIS TIME History of Present Illness HPI narrative: Patient presents for evaluation of chest pain. Patient states that she was awoken around 2 or 3:00 in the morning with low chest pain. She reports that she has been having problem with heartburn intermittently for the last week with occasional discomfort but nothing like that happen this morning. Patient states that she took a nitroglycerin of her 's that helped. However her heartburn persists. She saw her PCP today who recommended that she come to the ER for further evaluation. She currently denies chest pain shortness of breath fever chills hemoptysis hematochezia melena nausea vomiting diarrhea. She does report a strong family history of cardiovascular disease but does not currently carry an active diagnosis of that. She does have a history of hyperlipidemia COPD and is not on home O2. Related Data Home Medications ?Medication ?Instructions ?Recorded ?Confirmed acetaminophen 500 mg tablet 1,000 mg PO ONCE 05/07/23 07/28/24 albuterol sulfate 90 mcg/actuation 2 inh inhalation PRN 05/07/23 07/28/24 aerosol inhaler aspirin 81 mg tablet,delayed 81 mg PO DAILY 05/07/23 07/28/24 release (Adult Low Dose Aspirin) atorvastatin 20 mg tablet 20 mg PO HS 05/07/23 07/28/24 famotidine 20 mg tablet 20 mg PO BID 05/07/23 07/28/24 fluticasone propionate 50 1 spray intranasal DAILY 05/07/23 07/28/24 mcg/actuation nasal spray,suspension ibuprofen 400 mg tablet 400 mg PO BID 05/07/23 07/28/24 mecobalamin (vitamin B12) 1,000 1,000 mcg sublingual DAILY 05/07/23 07/28/24 mcg disintegrating tablet,sublingual Previous Rx's ?Medication ?Instructions ?Recorded cyproheptadine 4 mg tablet 4 mg PO HS per [place] for chronic 06/22/23 headaches #30 tabs pantoprazole 40 mg tablet,delayed 40 mg PO DAILY #30 tabs 02/06/25 release (Protonix) Allergies Allergy/AdvReac Type Severity Reaction Status Date / Time No Known Allergies Allergy Verified 07/28/24 13:03 [facility] <ADITYA Mckeon - Last Filed: 02/06/25 19:38> [facility] Disclaimer: The information contained in this section may have been updated after the patient was seen, as this information can be updated by other users. Medical History Urinary tract infection Kidney stone Migraine Hyperlipidemia Surgical History History of hysterectomy History of cholecystectomy Family History Other No significant family history Social History Smoking Status: Current every day smoker tobacco type: cigarettes packs per day: 1 alcohol intake: never substance use type: denies use current occupational status: employed Travel in the last 8 weeks?: None household members: spouse housing: house current occupational exposures/hazards: No caffeine: Yes Have you lived/traveled outside [place] in past 30 days?: No Contact w/someone who lives/traveled outside US past 30 days?: No Exposure to someone with infectious disease in past 14 days?: No Do you have a fever (greater than 100.4 F or 38 C)?: No Have you tested positive for COVID-19?: No Exposed to someone with COVID-19 in past 14 days?: No Do you have a sore throat?: No Do you have a cough?: No Do you have any weakness?: No Do you have any diarrhea?: No Are you experiencing any unusual bleeding?: No Do you have any muscle aches/pain?: No Do you have any abdominal pain?: No Are you experiencing loss of taste or smell?: No Other Medical History Have you received the Flu Vaccine for this season: No Have you received the Pneumonia Vaccine: No <ADITYA Mckeon - Last Filed: 02/06/25 19:38> ROS Obtained: Yes Systems reviewed as appropriate & no additional complaints except as documented Physical Exam <ADITYA Mckeon - Last Filed: 02/06/25 19:38> General General appearance: alert and in no apparent distress Respiratory Respiratory exam: Present normal lung sounds bilaterally Cardiovascular Cardiovascular exam: Present regular rate Neurological Exam Neurological exam: Present alert and oriented X3 Medical Decision Making <ADITYA Mckeon - Last Filed: 02/06/25 19:38> Medical Records Medical records reviewed: Yes I reviewed the patient's medical records. Screening: Per USPSTF and CDC recommendations, given the prevalence of disease in our region, it is our hospital?s policy to screen for HIV and viral Hepatitis for all patients aged 18 and over and those with ongoing risk factors. Romero Inquiry Pt receiving controlled substance: No Vital Signs: 02/06/25 17:28 02/06/25 17:45 02/06/25 18:28 Temperature 98.0 F Temperature Source Oral Pulse Rate 68 71 Pulse Rate [Apical] 74 Respiratory Rate 18 20 18 Blood Pressure 118/62 100/70 L Blood Pressure [Right Arm] 118/62 Blood Pressure Mean [Right Arm] 80 Blood Pressure Source [Right Arm] Automatic Cuff Blood Pressure Position [Right Arm] Sitting 02 Sat by Pulse Oximetry 96 97 95 Oxygen Delivery Method Room Air Room Air Room Air 02/06/25 18:30 Temperature Temperature Source Pulse Rate 66 Pulse Rate [Apical] Respiratory Rate 15 Blood Pressure 113/70 Blood Pressure [Right Arm] Blood Pressure Mean [Right Arm] Blood Pressure Source [Right Arm] Blood Pressure Position [Right Arm] 02 Sat by Pulse Oximetry 97 Oxygen Delivery Method Room Air Lab Data Lab results reviewed: Yes I reviewed the patient's lab results. Lab Results 02/06/25 17:30: WBC 7.5, RBC 5.04, Hgb 15.1, Hct 46.1, MCV 91.5, MCH 30.0, MCHC 32.8, RDW 12.5, Plt Count 319, MPV 9.6, Neut % (Auto) 50.5, Lymph % (Auto) 39.7, [place] % (Auto) 8.8, Eos % (Auto) 0.5, Baso % (Auto) 0.1, Neut # (Auto) 3.8, Lymph # (Auto) 3.0, [place] # (Auto) 0.7, Eos # (Auto) 0.0, Baso # (Auto) 0.0, D-Dimer 0.42, Sodium 142, Potassium 3.8, Chloride 107, Carbon Dioxide 31 H, Anion Gap 7.8, BUN 14, Creatinine 1.10 H, Estimated Creat Clear 41, Estimated GFR 51 L, Est GFR ( Amer) 61, Glucose 112 H, Calcium 9.6, Total Bilirubin 0.5, AST 21, ALT 15, Alkaline Phosphatase 62, Troponin I < 0.01, Total Protein 7.0, Albumin 4.7, Globulin 2.3, Albumin/Globulin Ratio 2.0 H, Lipase 95 02/06/25 17:30 02/06/25 17:30 Orders (Tests/Meds): ED MEDICATIONS Discontinued Medications Generic Name Dose Route Start Last Admin Trade Name Freq PRN Reason Stop Dose Admin Belladonna Alkaloids 60 ml 02/06/25 17:43 02/06/25 18:11 Belladonna Alkaloids 60 Ml Ml PO 02/06/25 17:44 60 ml ONCE ONE Administration Ondansetron HCl 4 mg 02/06/25 17:43 02/06/25 18:11 Ondansetron 4mg/2ml Vial IV 02/06/25 17:44 4 mg ONCE ONE Administration ORDERS Category Date Time Status Chest XR 2 view (NOT portable) [XR chest 2V] Stat Exams 02/06/25 17:43 Completed CBC w/Auto Diff [Complete Blood Count Auto Diff] Stat Lab 02/06/25 17:30 Completed CMP [Comprehensive Metabolic Panel] Stat Lab 02/06/25 17:30 Completed D-Dimer Stat Lab 02/06/25 17:30 Completed HIV Combo Stat Lab 02/06/25 17:30 Received Hepatitis C Ab Qual. W/ RFX Stat Lab 02/06/25 17:30 Received Lipase Stat Lab 02/06/25 17:30 Completed Trop I [Troponin I] Stat Lab 02/06/25 17:30 Completed Troponin I Q3H Lab 02/06/25 20:45 Ordered Troponin I Q3H Lab 02/06/25 23:45 Ordered Medical Decision Narrative: In summary patient is a 59-year-old female who presents to the emergency department for evaluation of chest/epigastric pain. Patient is hemodynamically stable upon arrival, afebrile. 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 Differential diagnosis includes ACS versus PE versus ulcer versus esophageal spasm versus gastritis etc. Initial workup will be conducted with twelve-lead EKG hematologic labs-chest x-ray. Initial interventions include GI cocktail. Initial workup reviewed by me shows that her troponin is undetectable and given that it is more than 12 hours since her symptoms began only single troponin was ordered. The remainder of her hematologic labs are nonactionable including normal lipase. My informal interpretation of her plain film chest x- ray shows no acute processes prior to radiology read. Please see radiology read for formal interpretation. Upon repeat evaluation patient reported that the GI cocktail improved her symptoms significantly. Given this patient is appropriate for discharge with a prescription for Protonix and referral to gastroenterology for further evaluation of her dyspepsia, referral to cardiology given her family history and risk factors. Patient follow-up closely with PCP for continued new or worsening signs or symptoms or return to the ER as needed. <Amanda Gonzalez, DO - Last Filed: 02/06/25 18:03> Vital Signs: 02/06/25 17:28 02/06/25 17:45 02/06/25 18:28 Temperature 98.0 F Temperature Source Oral Pulse Rate 68 71 Pulse Rate [Apical] 74 Respiratory Rate 18 20 18 Blood Pressure 118/62 100/70 L Blood Pressure [Right Arm] 118/62 Blood Pressure Mean [Right Arm] 80 Blood Pressure Source [Right Arm] Automatic Cuff Blood Pressure Position [Right Arm] Sitting 02 Sat by Pulse Oximetry 96 97 95 Oxygen Delivery Method Room Air Room Air Room Air 02/06/25 18:30 Temperature Temperature Source Pulse Rate 66 Pulse Rate [Apical] Respiratory Rate 15 Blood Pressure 113/70 Blood Pressure [Right Arm] Blood Pressure Mean [Right Arm] Blood Pressure Source [Right Arm] Blood Pressure Position [Right Arm] 02 Sat by Pulse Oximetry 97 Oxygen Delivery Method Room Air Lab Data Lab Results 02/06/25 17:30: WBC 7.5, RBC 5.04, Hgb 15.1, Hct 46.1, MCV 91.5, MCH 30.0, MCHC 32.8, RDW 12.5, Plt Count 319, MPV 9.6, Neut % (Auto) 50.5, Lymph % (Auto) 39.7, [place] % (Auto) 8.8, Eos % (Auto) 0.5, Baso % (Auto) 0.1, Neut # (Auto) 3.8, Lymph # (Auto) 3.0, [place] # (Auto) 0.7, Eos # (Auto) 0.0, Baso # (Auto) 0.0, D-Dimer 0.42, Sodium 142, Potassium 3.8, Chloride 107, Carbon Dioxide 31 H, Anion Gap 7.8, BUN 14, Creatinine 1.10 H, Estimated Creat Clear 41, Estimated GFR 51 L, Est GFR ( Amer) 61, Glucose 112 H, Calcium 9.6, Total Bilirubin 0.5, AST 21, ALT 15, Alkaline Phosphatase 62, Troponin I < 0.01, Total Protein 7.0, Albumin 4.7, Globulin 2.3, Albumin/Globulin Ratio 2.0 H, Lipase 95 Orders (Tests/Meds): ED MEDICATIONS Discontinued Medications Generic Name Dose Route Start Last Admin Trade Name Freq PRN Reason Stop Dose Admin Belladonna Alkaloids 60 ml 02/06/25 17:43 02/06/25 18:11 Belladonna Alkaloids 60 Ml Ml PO 02/06/25 17:44 60 ml ONCE ONE Administration Ondansetron HCl 4 mg 02/06/25 17:43 02/06/25 18:11 Ondansetron 4mg/2ml Vial IV 02/06/25 17:44 4 mg ONCE ONE Administration ORDERS Category Date Time Status Chest XR 2 view (NOT portable) [XR chest 2V] Stat Exams 02/06/25 17:43 Completed CBC w/Auto Diff [Complete Blood Count Auto Diff] Stat Lab 02/06/25 17:30 Completed CMP [Comprehensive Metabolic Panel] Stat Lab 02/06/25 17:30 Completed D-Dimer Stat Lab 02/06/25 17:30 Completed HIV Combo Stat Lab 02/06/25 17:30 Received Hepatitis C Ab Qual. W/ RFX Stat Lab 02/06/25 17:30 Received Lipase Stat Lab 02/06/25 17:30 Completed Trop I [Troponin I] Stat Lab 02/06/25 17:30 Completed Troponin I Q3H Lab 02/06/25 20:45 Ordered Troponin I Q3H Lab 02/06/25 23:45 Ordered ECG Data Tracing #1: I reviewed this ECG and interpreted as documented below: Normal sinus rhythm with a ventricular rate of [address] changes without acute STEMI. Normal intervals ECG initial impression date: 02/06/25 ECG initial impression time: 17:29 Critical Care <ADITYA Mckeon - Last Filed: 02/06/25 19:38> Critical Care Time Critical Care Time: No
--- NOTE | 2025-02-06 17:43 | XR_ITS ---
PROCEDURE INFORMATION: Exam: XR Chest Exam date and time: 02/06/2025 5:47 PM Age: 59 years old Clinical indication: Pain; Radiating; Additional info: Chest pain TECHNIQUE: Imaging protocol: Radiologic exam of the chest. Views: 2 views. COMPARISON: No relevant prior studies available. FINDINGS: Lungs: Unremarkable. No consolidation. Pleural spaces: Unremarkable. No pleural effusion. No pneumothorax. Heart/Mediastinum: Unremarkable. No cardiomegaly. Bones/joints: Unremarkable. IMPRESSION: No acute findings.
[2025-02-06 17:45] VITALS: BP 118/62; PULSE 68; RESP 20; O2SAT 97
[2025-02-06 17:50] LABS: Basophils % 0.1 % (0.1-2.0); Eosinophils % 0.5 % (0.1-12.0); Hematocrit 46.1 % (37.0-47.0); Hemoglobin 15.1 g/dL (12.2-16.2); Immature Granulocytes # 0.03 10^3uL; Immature Granulocytes % 0.4 %; Lymphocytes % 39.7 % (10-50); Mean Corpuscular HGB Conc 32.8 g/dL (31.8-35.4); Mean Corpuscular Volume 91.5 fl (81-99); Mean Platelet Volume 9.6 fl (7.4-10.4); Monocytes # 0.7 K/mm3 (0.1-1.0); Monocytes % 8.8 % (1.7-9.3); Neutrophils # 3.8 K/mm3 (1.8-7.8); Neutrophils % 50.5 % (37.0-80.0); Nucleated Red Blood Cells # 0 10^3/uL; Nucleated Red Blood Cells % 0 %; Platelet Count 319 K/mm3 (142-424); Red Blood Count 5.04 M/mm3 (4.20-5.40); Red Cell Distribution Width 12.5 % (11.5-17.5); Red Cell Distribution Width-SD 41.7 fL; White Blood Count 7.5 K/mm3 (4.8-10.8)
--- NOTE | 2025-02-06 17:56 | PC.NURSE ---
Pt is out of room, pt is gone to RAD.
--- NOTE | 2025-02-06 17:56 | PC.NURSE ---
PT TO RADIOLOGY
[2025-02-06] MEDS: ONDANSETRON 4MG/2ML VIAL 4 MG IV (18:11)
[2025-02-06] MEDS: BELLADONNA ALKALOIDS 60 ML ML PO (18:11)
[2025-02-06 18:17] LABS: Alanine Aminotransferase 15 U/L (12-78); Albumin Level 4.7 g/dl (3.5-5.0); Alkaline Phosphatase 62 U/L (38-126); Anion Gap 7.8 mEq/L (5-15); Aspartate Amino Transferase 21 U/L (14-36); Bilirubin,Total 0.5 mg/dl (0.2-1.3); Blood Urea Nitrogen 14 mg/dl (7-17); Calcium 9.6 mg/dl (8.4-10.2); Carbon Dioxide 31 mmol/L (22.0-30.0); Chloride 107 mmol/L (98-107); Creatinine Clearance Estimated 41 mL/min (50-200); Estimated Glomerular Filt Rate 51 ml/min (>60); GFR (African American) 61 ML/MIN (>60); Globulin 2.3 g/dL (1.3-3.2); Glucose 112 mg/dl (74-100); Potassium 3.8 mmoL/L (3.5-5.1); Sodium 142 mmol/L (136-145)
[2025-02-06 18:21] LABS: D-Dimer 0.42 ug/mL (0.0-0.5)
[2025-02-06 18:28] VITALS: BP 100/70; PULSE 71; RESP 18; O2SAT 95
[2025-02-06 18:30] VITALS: BP 113/70; PULSE 66; RESP 15; O2SAT 97
[2025-02-06 18:44] LABS: Troponin I < 0.01 ng/ml (0.00-0.034)
[2025-02-06 18:59] LABS: Lipase 95 U/L (23-300)
[2025-02-06 19:40] LABS: HIV Combo NEGATIVE (Negative)
[2025-02-06 19:48] VITALS: BP 119/70; PULSE 67; RESP 18; TEMP 37.1; O2SAT 100
[2025-02-06 19:48] LABS: Hepatitis C Ab Qual. W/ RFX NEGATIVE (Negative)
--- NOTE | 2025-02-06 19:49 | PC.NURSE ---
IV discontinued. Catheter tip intact. Bleeding controlled
== END 2025-02-06 19:50 | disposition home or self-care (01) ==
PROVIDERS: Physician Assistant; Emergency Provider Emergency Medicine
DX: R07.9 Chest pain, unspecified (principal); R10.13 Epigastric pain; E78.5 Hyperlipidemia, unspecified; F17.210 Nicotine dependence, cigarettes, uncomplicated; Z11.59 Encounter for screening for other viral diseases; Z11.4 Encounter for screening for human immunodeficiency virus [HIV]
CPT/HCPCS: 71046; 80053; 83690; 84484; 85025; 85378; 86803; 87389; 93005; 96374; 99285; J2405

== ENCOUNTER 2025-02-21 11:29 | Outpatient (CLI) | payer OTHER, SELFPAY ==
--- NOTE | 2025-02-21 | CA_ITS ---
APPROVED REPORT Exam: Pharmacologic Technologist: Lily Banks Ht: 4 ft 11 in Wt: 110 lbs BSA: 1.43 m2 HR: 57 bpm BP: 126/65 mmHg Stress Test Details Test: Lexiscan HR Resting HR: 57 bpm Max Heart Rate (APMHR): [id number] bpm Max HR Achieved: 106 bpm Target HR (85% APMHR): 136.975247 bpm % of APMHR: 66.25 Recovery HR: 89 bpm BP Resting BP: 126.0/65.0 mmHg Max BP: 139.0/70.0 mmHg Recovery BP: 129.0/69.0 mmHg ECG Resting ECG: Sinus rhythm Stress ECG Conclusion Symptoms: Nausea, chest pressure Arrhythmias/Ectopy: - ST-T Changes: Less than [address] depression. Conclusion: EKG unremarkable due to Lexiscan infusion. Electronically signed by : Maryse Fitzgerald MD 02/22/2025 23:31:47
--- NOTE | 2025-02-21 11:38 | NM_ITS ---
APPROVED REPORT Exam: Nuclear Stress Test Indication: cp..soa..fatigue Patient Location: Outpatient Stress Tech: Lily Banks NM Tech:Mechelle Edmonds, ARRT, RT (R)(N) Ht: 4 ft 11 in Wt: 110 lbs Bra Size: 36b HR: 62 bpm BP: 126/65 mmHg BSA: 1.43 m2 TID: 1.22 BMI: 22.2 History: cp..soa..fatigue Procedure: Patient received 0.4 mg of intravenous Lexiscan, resting heart rate 62 bpm, resting blood pressure 126/65 mmHg, with Lexiscan maximum heart rate achieved was 104 bpm which is 85 % of the maximum predicted heart rate and blood pressure was 128/72 mmHg. With Lexiscan, patient denied any complaint of chest pain. Cardiac Stress and Resting SPECT Images: Cardiac Stress and Resting SPECT images were obtained using technetium 99m Myoview 31.5 mCi stress and 10.49 mCi at rest. Resting and stress imaging in supine and prone position demonstrate no evidence of fixed or reversible perfusion defects. There is increase in transient ischemic dilatation ratio (TID 1.22), which may be suggestive of possible multivessel disease or balanced ischemia. Gated imaging demonstrates normal global and regional LV systolic function. LVEF is calculated at 67%. Conclusion: No evidence of fixed or reversible perfusion defects. There is increase in transient ischemic dilatation ratio (TID 1.22), which may be suggestive of possible multivessel disease or balanced ischemia. Gated imaging demonstrates normal global and regional LV systolic function. LVEF is calculated at 67%. Electronically signed by : Maryse Fitzgerald MD 02/22/2025 23:19:47
[2025-02-21] MEDS: SODIUM CHLORIDE 0.9% 10ML SYR (RAD ONLY) 10 ML IV ×2 (13:46)
[2025-02-21] MEDS: ISOTOPE MYOVIEW (PER STUDY) 1 DOSE IV (13:46)
[2025-02-21] MEDS: REGADENOSON 0.4MG/5ML SYRINGE 0.4 MG IV (13:46)
== END 2025-02-21 23:59 | disposition home or self-care (01) ==
LOC: RAD 11:30
PROVIDERS: PCP Nurse Practitioner Family; Visit Provider Physician Assistant
DX: R94.39 Abnormal result of other cardiovascular function study (principal); R07.9 Chest pain, unspecified; R06.02 Shortness of breath; R53.83 Other fatigue
CPT/HCPCS: 78452; 93017; 93018; A9502; J2785

== ENCOUNTER 2025-05-03 08:50 | Outpatient (CLI) | payer OTHER, SELFPAY ==
--- OUTSIDE RECORDS SUMMARY | 2025-03-14 14:00 | XMS_ITS | Encounter Summary ---
Author Organization [facility] Address [address] [place] [address] Care Team Providers Care Boiler Testing Technician Name Role Phone Zeb Rivero MD Primary Care Provider [phone] Reason for Referral * Diagnostic Imaging (Routine) - Closed Specialty Diagnoses / Procedures Referred By Contac t Referred To Contact Diagnoses Chest pain, atypical Procedures Adult Transthoracic Echo Complete W/ Cont if Necessary Per Protocol Dolores Dhillon APRN [address] [place] [address] Phone: tel: fax: [facility] [address] [place] [address] Phone: tel: fax: Referral ID Status Reason Start Date Expiration Date Visits Re quested Visits Authorized [id number] Closed 03/14/2025 06/13/2026 1 1 Reason for Visit * Reason Comments Establish Care Reports having an ab normal stress test at [facility]. Referred here for cardiology consult. [place]:4Neck Size: 16 Chest Pain Patient states she w albert up from sleep with bad chest pain a couple of months. She took on of her 's Nitroglycerin tablets and it relieved the pain. She did not seek treatment. Since then she reports chest tightness, pain in her neck and headaches. Shortness of Breath Reports shortness of breath with exertion since the chest pain episode. Sleep Apnea Pt has known sleep a pnea but states she is intolerant to pap therapy. Sleep study done at [facility] in 2022. * Consultation (Routine) - Pending Review Specialty Diagnoses / Procedures Referred By Contac t Referred To Contact Cardiology Diagnoses Abnormal stress test Zeb Rivero MD [address] [facility] [address] [place] [address] Phone: tel: fax: Sana Nieves MD [address] [place] [address] Phone: tel: fax: Referral ID Status Reason Start Date Expiration Date V isits Requested Visits Authorized [id number] Pending Review 03/02/2025 06/01/2026 1 1 Encounter Details Date Type Department Care Team (Late st Contact Info) Description 03/14/2025 2:00 PM EDT Office Visit [facility] [address] [place] [address] Dolores Dhillon APRN [address] [place] [address] Chest pain, atypical; Abnormal stress test; ALFREDO (obstructive sleep apnea); Bilateral leg edema; Family history of premature CAD Social History Tobacco Use Types Packs/Day Years Used Date Smoking Tobacco: Every Day Cigarettes 1 15.6 Started: 2009 Passive Smoke Exposure: Current Smokeless Tobacco: Never Tobacco Cessation:Ready to Q uit: No; Counseling Given: No Alcohol Use Standard Drinks/Week Comments Never 0 (1 standard drink = 0.6 oz pur e alcohol) Comments Unknown Sex and Gender Information Value Date Recorded Sex Assigned at Not on file Legal Sex Female 9:24 AM EDT Gender Identity Not on file Sexual Orientation Not on file documented as of this encounter Last Filed Vital Signs Vital Sign Reading Time Taken Comments Blood Pressure 114/70 03/14/2025 2:35 PM EDT Pulse 66 03/14/2025 2:35 PM EDT Temperature - - Respiratory Rate - - Oxygen Saturation 95% 03/14/2025 2:35 PM EDT Inhaled Oxygen Concentration - - Weight 47.9 kg (105 lb 11.2 oz) 03/14/2025 2:35 PM EDT Height 149.9 cm (4' 11 ) 03/14/2025 2:35 PM EDT Body Mass Index 21.35 03/14/2025 2:35 PM EDT documented in this encounter Progress Notes * Dolores Dhillon APRN - 03/14/2025 2:00 PM EDT Images from the original note were not included. Date: 03/14/2025 Name: Maureen Delong : 1965 PCP: Zeb Rivero MD REF: Zeb Rivero MD Sleep and/or Cardiology Consulting Provider Note ..Establish Care (Reports having an abnormal stress test at [facility]. Referred here for cardiology consult. /[place]:4/Neck Size: 16 ), Chest Pain (Patient states she woke up from sleep with bad chest pain a couple of months. She took on of her 's Nitroglycerin tablets and it relieved the pain. She did not seek treatment. Since then she reports chest tightness, pain in her neck and headaches. ), Shortness of Breath (Reports shortness of breath with exertion since the chest pain episode. ), and Sleep Apnea (Pt has known sleep apnea but states she is intolerant to pap therapy. Sleep study done at [facility] in 2022.) History of Present Illness The patient is a 59-year-old female who presents today to establish cardiac care following an abnormal stress test. She was referred by her primary care physician, Dr. Jaffe. She underwent a stress test due to the onset of chest pain that occurred while she was in bed, which was severe enough to disrupt her sleep. Her administered nitroglycerin, which alleviated the pain, and she did not seek immediate medical attention. Since then, she has been experiencing recurrent episodes of chest tightness and back pain, occurring at least twice weekly and lasting approximately 3 minutes. She has not required additional nitroglycerin since the initial episode. She reports no palpitations or heart fluttering. She experienced mild leg swelling yesterday, whichshe attributes to prolonged standing, and notes that the swelling subsides upon rest. She has a known history of obstructive sleep apnea (ALFREDO) but is intolerant of PAP therapy. She has not undergone an echocardiogram recently. She has a history of smoking, currently smokes less than one pack per day, and has been smoking for15 to 20 years. She has never been prescribed a beta elena. She has a family history of heart disease, with her mother having of a heart attack at age 35. She has a past medical history of cardiac testing, including a heart catheterization performed by Dr. Vergara several years ago. SOCIAL HISTORY Marital Status: Tobacco: The patient smokes cigarettes and has been smoking for 15-20 years, less than one pack perday. FAMILY HISTORY - Mother: of heart attack at age 35 - Father: No specific illness mentioned, but concerned about patient's heart health N/A for other first-degree relatives. 02/21/2025 Abnormal Nuclear Stress Test 02/06/25 EKG- Sinus Rhythm, minimal ST depression. HR 63. 04/07/2023 HST [place] Scale is (out of 24): Total score: 4 The ASCVD Risk score (See MUÑOZ, et al., 2019) failed to calculate for the following reasons: Cannot find a previous HDL lab Cannot find a previous total cholesterol lab Cardiology and Sleep Related History: Chest Pain Abnormal Nuclear Stress Test Strong Family HX premature CAD ALFREDO-Intolerant to CPAP Smoker Edema on occasion 02/21/2025 Abnormal Nuclear Stress Test 02/06/25 EKG- Sinus Rhythm, minimal ST depression. HR 63. 04/07/2023 HST There are no discontinued medications. No Known Allergies Current Outpatient Medications: acetaminophen (TYLENOL) 325 MG tablet, Take 2 tablets by mouth Every 6 (Six) Hours As Needed for Mild Pain., Disp: , Rfl: aspirin 81 MG EC tablet, Take 1 tablet by mouth Daily., Disp: , Rfl: pantoprazole (PROTONIX) 40 MG EC tablet, Take 1 tablet by mouth Daily., Disp: , Rfl: nitroglycerin (NITROSTAT) 0.4 MG SL tablet, 1 under the tongue as needed for angina, may repeat q5mins for up three doses, Disp: 100 tablet, Rfl: 11 propranolol (INDERAL) 10 MG tablet, Take 0.5 tablets by mouth 2 (Two) Times a Day., Disp: 45 tablet, Rfl: 0 Past Medical History: Diagnosis Date Gastritis Migraines Vitamin B12 deficiency Patient Active Problem List Diagnosis Chest pain, atypical Gastritis Migraines Vitamin B12 deficiency Abnormal stress test ALFREDO (obstructive sleep apnea) Tobacco abuse Bilateral leg edema Family history of premature CAD Family History Problem Relation Age of Onset Heart attack Mother Heart disease Mother Stroke Mother Gout Father Diabetes Father Heart attack Father Heart disease Father Other (HIGH BLOOD PRESSURE) Father Kidney disease Father family history includes Diabetes in her father; Gout in her father; HIGH BLOOD PRESSURE in her father; Heart attack in her father and mother; Heart disease in her father and mother; Kidney disease inher father; Stroke in her mother. Social History Socioeconomic History Marital status: Tobacco Use Smoking status: Every Day Current packs/day: 1.00 Average packs/day: 1 pack/day for 15.5 years (15.5 ttl pk-yrs) Types: Cigarettes Start date: 2009 Passive exposure: Current Smokeless tobacco: Never Vaping Use Vaping status: Never Used Substance and Sexual Activity Alcohol use: Never Drug use: Never Sexual activity: Defer Vital Signs: BP 114/70 (BP Location: Right arm, Patient Position: Sitting, Cuff Size: Adult) Pulse 66 Ht 149.9 cm (59 ) Wt 47.9 kg (105 lb 11.2 oz) SpO2 95% BMI 21.35 kg/m?? Estimated body mass index is 21.35 kg/m?? as calculated from the following: Height as of this encounter: 149.9 cm (59 ). Weight as of this encounter: 47.9 kg (105 lb 11.2 oz). Physical Exam Vitals reviewed. Constitutional: Appearance: Normal appearance. She is well-developed. HENT: Head: Normocephalic and atraumatic. Eyes: General: No scleral icterus. Pupils: Pupils are equal, round, and reactive to light. Cardiovascular: Rate and Rhythm: Normal rate and regular rhythm. Heart sounds: Normal heart sounds. No murmur heard. Pulmonary: Breath sounds: Normal breath sounds. No wheezing or rhonchi. Musculoskeletal: General: Normal range of motion. Right lower leg: No edema. Left lower leg: No edema. Skin: General: Skin is warm and dry. Capillary Refill: Capillary refill takes less than 2 seconds. Coloration: Skin is not cyanotic. Nails: There is no clubbing. Neurological: Mental Status: She is alert and oriented to person, place, and time. Motor: No weakness. Gait: Gait normal. Psychiatric: Mood and Affect: Mood normal. Behavior: Behavior is cooperative. Thought Content: Thought content normal. Physical Exam Blood Pressure: Normal Heart: Heart rate is low. Extremities: Mild swelling in legs noted, which decreases with rest. Results Imaging - Stress test: Showed an increase in one of the equations used to calculate some of the numbers, indicating either no issue or serious blockage. Assessment and Plan Diagnoses and all orders for this visit: 1. Chest pain, atypical - Cancel: ECG 12 Lead - Adult Transthoracic Echo Complete W/ Cont if Necessary Per Protocol; Future - Case Request Specialist Field Engineer: Cardiac Catheterization/Vascular Study 2. Abnormal stress test - Case Request Specialist Field Engineer: Cardiac Catheterization/Vascular Study 3. ALFREDO (obstructive sleep apnea) 4. Bilateral leg edema 5. Family history of premature CAD - Case Request Specialist Field Engineer: Cardiac Catheterization/Vascular Study Other orders - nitroglycerin (NITROSTAT) 0.4 MG SL tablet; 1 under the tongue as needed for angina, may repeat q5mins for up three doses Dispense: 100 tablet; Refill: 11 - propranolol (INDERAL) 10 MG tablet; Take 0.5 tablets by mouth 2 (Two) Times a Day. Dispense: 45 tablet; Refill: 0 Assessment & Plan 1. Chest Pain -Abnormal stress test: - Discussed CCTA VS updating LHC - Schedule left heart catheterization. - Echocardiogram. - Initiate low-dose beta elena for cardiac protection. - Continue aspirin 81 mg. - Provide prescription for nitroglycerin. - Advise to report any dizziness for potential discontinuation of beta elena. -02/06/25 EKG- Sinus Rhythm, minimal ST depression. HR 63. 2. Obstructive sleep apnea: - No current intervention due to intolerance of PAP therapy. 3. Smoking: - Recommend smoking cessation. 4. Leg swelling: - Monitor for recurrence and advise elevation if swelling persists. Risks, benefits, and alternatives of the coronary CTA and left heart catheterization were discussed. The coronary CTA involves an i.v. and contrast to check for blockage, but requires a separate visit for treatment if blockage is found. The left heart catheterization allows for immediate treatment of any detected blockage. Given the patient's symptoms and cardiac risk factors, further diagnostic testing is necessary. The patient opted for the left heart catheterization, understanding the procedure and its implications. Follow-up: - The patient will be contacted with appointment options and directions for the heart catheterization, including the need for a lifter/driver. Recommendations: ER if symptoms increase and Report if any new/changing symptoms immediately Follow Up Return for After LHC and echo. Patient or patient customer service representative verbalized consent for the use of Ambient Listening during the visit with Dolores Dhillon APRN for chart documentation. 03/15/2025 16:18 EDT Dolores Dhillon APRN 03/14/2025 Please note that this explicitly excludes time spent on other separate billable services such as performing procedures or test interpretation, when applicable. This note was created using dictation software which occasionally transcribes nonsensical phrases. Please contact the provider if any clarification is needed. * Cris Escobar RegSched Rep - 03/14/2025 2:00 PM EDT Secure chat sent to yolette to be scheduled documented in this encounter Plan of Treatment Not on file documented as of this encounter Results * ECHO COMPLETE W/ DOPPLER AND COLOR FLOW (04/21/2025 10:47 AM EDT) EF(MOD-bp) 69.9 % LVIDd 3.0 cm LVIDs 2.13 cm IVSd 0.98 cm LVPWd 0.89 cm FS 29.5 % IVS/LVPW 1.10 cm ESV(cubed) 9.7 ml EDV(cubed) 27.6 ml LV mass(C)d 74.6 grams LVOT area 2.8 cm2 LVOT diam 1.90 cm EDV(MOD-sp2) 65.3 ml EDV(MOD-sp4) 62.3 ml ESV(MOD-sp2) 19.5 ml ESV(MOD-sp4) 18.1 ml SV(MOD-sp2) 45.8 ml SV(MOD-sp4) 44.2 ml EF(MOD-sp2) 70.1 % EF(MOD-sp4) 70.9 % MV E max josesito 72.5 cm/sec MV A max josesito 58.7 cm/sec MV dec time 0.21 sec MV E/A 1.24 Med Peak E' Josesito 7.5 cm/sec Lat Peak E' Josesito 10.5 cm/sec TR max josesito 192.0 cm/sec Avg E/e' ratio 8.06 SV(LVOT) 62.7 ml RVIDd 2.10 cm RV Base 2.7 cm RV Mid 2.28 cm RV Length 4.6 cm TAPSE (>1.6) 1.82 cm LA dimension (2D) 2.6 cm LV V1 max 97.5 cm/sec LV V1 max PG 3.8 mmHg LV V1 mean PG 2.00 mmHg LV V1 VTI 22.1 cm Ao pk josesito 102.0 cm/sec Ao max PG 4.2 mmHg Ao mean PG 2.00 mmHg Ao V2 VTI 23.7 cm BARRY(I,D) 2.6 cm2 Dimensionless Index 0.93 (DI) MV max PG 2.14 mmHg MV mean PG 1.00 mmHg MV V2 VTI 25.5 cm MVA(VTI) 2.46 cm2 MV dec slope 338.0 cm/sec2 TR max PG 14.7 mmHg RVSP(TR) 17.7 mmHg RAP systole 3.0 mmHg PA V2 max 85.0 cm/sec PA acc time 0.08 sec Ao root diam 2.7 cm Sinus 2.7 cm Anatomical Region Laterality Modality Ultrasound Narrative 04/25/2025 5:48 PM EDT Left ventricular systolic function is normal. Left ventricular ejection fraction appears to be 66 - 70%. Left ventricular diastolic function was normal. Estimated right ventricular systolic pressure from tricuspid regurgitation is normal (<35 mmHg). There is a trivial pericardial effusion adjacent to the right ventricle. Left Ventricle Left ventricular systolic function is normal. Left ventricular ejection fraction appears to be 66 - 70%. Septal wall motion is normal. Normal left ventricular cavity size and wall thickness noted. All left ventricular wall segments contract normally. Left ventricular diastolic function was normal. Normal left atrial pressure. Right Ventricle Normal right ventricular cavity size, wall thickness, systolic function and septal motion noted. Left Atrium Normal left atrial size and volume noted. Right Atrium Normal right atrial cavity size noted. Mitral Valve The mitral valve is structurally normal with no significant stenosis present. No significant mitral valve regurgitation is present. Tricuspid Valve The tricuspid valve is normal in structure. Trace tricuspid valve regurgitation is present. Estimated right ventricular systolic pressure from tricuspid regurgitation is normal (<35 mmHg). Aortic Valve No aortic valve regurgitation or stenosis is present. The aortic valve is grossly normal in structure. The aortic valve appears trileaflet. Pulmonic Valve The pulmonic valve is structurally normal with no significant stenosis present. There is trace pulmonic valve regurgitation present. Pericardium There is a trivial pericardial effusion. The effusion is fluid filled. Images 46-48. Greater Vessels No dilation of the aortic root is present. No dilation of the sinuses of Valsalva is present. Study Quality The study is technically adequate for diagnosis. Sinus bradycardia was the predominant rhythm observed during the procedure. Wall Scoring Score Index: 1.00 The left ventricular wall motion is normal. Dolores Otto Alejo SINGHN CV ECHO ORDERABLES Final Result documented in this encounter Visit Diagnoses Diagnosis Chest pain, atypical Abnormal stress test Other nonspecific abnormal cardiovascular system function study ALFREDO (obstructive sleep apnea) Obstructive sleep apnea (adult) (pediatric) Bilateral leg edema Edema Family history of premature CAD Family history of ischemic heart disease Chest pain, atypical documented in this encounter Care Teams Boiler Testing Technician Relationship Specialty Start Date End Date Zeb Rivero MD [facility] [address] [place] [address] PCP - General Adolescent Medicine 03/14/25 documented as of this encounter
--- OUTSIDE RECORDS SUMMARY | 2025-03-30 10:05 | XMS_ITS | Encounter Summary ---
Author Organization [facility] Address [address] [place] [address] Care Team Providers Care Quill Machine Tender Name Role Phone Zeb Rivero MD Primary Care Provider Reason for Referral * Rehabilitation - Outpatient (Routine) - Pending Review Specialty Diagnoses / Procedures Referred By Contact Referred To Contact Cardiac Rehabilitation Diagnoses Vitamin B12 deficiency Procedures [place] OFFICE/OUTPATIENT NEW MODERATE MDM 45 MINUTES Shay Cain MD [address] [facility] [address] [facility] [address] [place] [address] Phone: tel: fax: [facility] [address] [place] [address] Phone: tel: Referral ID Status Reason Start Date Expiration Date V isits Requested Visits Authorized [id number] Pending Review 03/30/2025 06/29/2026 1 1 * Diagnostic Medical (Routine) - Pending Review Specialty Diagnoses / Procedures Referred By Contac t Referred To Contact Diagnoses Chest pain, atypical Abnormal stress test Family history of premature CAD Procedures Cardiac Catheterization/Vascular Study Zeb Rivero MD [address] [facility] [address] [facility] [facility] [address] [place] [address] Phone: tel: fax: Referral ID Status Reason Start Date Expiration Date V isits Requested Visits Authorized [id number] Pending Review 03/15/2025 06/14/2026 1 1 Reason for Visit * Auth/Cert Specialty Diagnoses / Procedures Referred By Melissa t Referred To Contact Diagnoses Chest pain, atypical Abnormal stress test Family history of premature CAD Procedures [place] CATH PLMT L HRT & ARTS W/NJX & ANGIO IMG S&I Left Heart Cath Referral ID Status Reason Start Date Expiration Date Visits Re quested Visits Authorized [id number] 1 1 Encounter Details Date Type Department Care Team (Late st Contact Info) Description 03/30/2025 10:05 AM EDT - 03/30/2025 3:16 PM EDT Hospital Encounter [facility] [address] [place] [address] Shay Cain MD [address] [place] [address] Vitamin B12 deficiency (Primary Dx); Chest pain, atypical; Abnormal stress test; Family history of premature CAD Discharge Disposition: Home or Self Care Social History Tobacco Use Types Packs/Day Years Used Date Smoking Tobacco: Every Day Cigarettes 1 15.6 Started: 2009 Passive Smoke Exposure: Current Smokeless Tobacco: Never Alcohol Use Standard Drinks/Week Comments Never 0 (1 standard drink = 0.6 oz pur e alcohol) AUDIT-C Answer Date Recorded Q1: How often do you have a drink containing alcohol? Never 03/30/2025 Q2: How many drinks containi ng alcohol do you have on a typical day when you are drinking? Patient does not drink Q3: How often do you have si x or more drinks on one occasion? Never 03/30/2025 Abuse Screen Answer Date Recorded Feels Unsafe at Home or Work/School no 03/30/2025 Feels Threatened by Someone no 11/2024 Does Anyone Try to Keep You From Having Contact with Others or Doing Things Outside Your Home? no 03/30/2025 Physical Signs of Abuse Present no 03/30/2025 Housing Stability Answer Date Recorded Current Living Arrangements home 11/2024 Potentially Unsafe Housing Conditions Not on donnell e 03/30/2025 Disabilities Answer Date Recorded Difficulty Concentrating, Remembering or Making Decisions no 03/30/2025 Difficulty Managing Errands Independently no 03/30/2025 Comments Unknown Sex and Gender Information Value Date Recorded Sex Assigned at Not on file Legal Sex Female 9:24 AM EDT Gender Identity Not on file Sexual Orientation Not on file documented as of this encounter Last Filed Vital Signs Vital Sign Reading Time Taken Comments Blood Pressure 111/66 03/30/2025 3:00 PM EDT Pulse 53 03/30/2025 3:00 PM EDT Temperature 36.1 C (97 F) 03/30/2025 10:15 AM EDT Respiratory Rate 16 03/30/2025 11:40 AM EDT Oxygen Saturation 96% 03/30/2025 3:00 PM EDT Inhaled Oxygen Concentration - - Weight 47.8 kg (105 lb 6.1 oz) 03/30/2025 10:15 AM EDT Height 149.9 cm (4' 11 ) 03/30/2025 10:15 AM EDT Body Mass Index 21.28 03/30/2025 10:15 AM EDT documented in this encounter Functional Status * Question Answer Date of Assessment Author 1. Wish to be (Past 1 Month) No 025 10:30 AM EDT Shown, Cris Espinal RN 2. Non-Specific Active Suici jeanie Thoughts (Past 1 Month) No 03/30/2025 10:30 AM EDT Shown, Cris Espinal RN * Calculated C-SSRS Risk Score (Lifetime/Recent) Answer Date of Assessment Author No Risk Indicated 03/30/2025 10:30 AM EDT Shown, Cris Espinal RN * [place] Suicide Severity Rating Scale (Screener/Recent Self-Report) Question Answer Date of Assessment Author 6. Suicidal Behavior (Lifetime) No 10:30 AM EDT Shown, Cris Espnial RN documented as of this encounter Discharge Instructions * Attachments The following attachments cannot be sent through Care Everywhere. * Radial Site Care ([place]ian) * Moderate Conscious Sedation Adult Care After ([place]ian) * Coronary Angiogram ([place]ian) documented in this encounter Medications at Time of Discharge acetaminophen (TYLENOL) 325 MG tablet Take 2 tablets by mouth Every 6 (Six) Hours As Needed for Mild Pain. aspirin 81 MG EC tablet Take 1 tablet by mouth Daily. nitroglycerin (NITROSTAT) 0.4 MG SL tablet 1 under the tongue as needed for angina, may repeat q5mins for up three doses 100 tablet 11 03/15/2025 pantoprazole (PROTONIX) 40 MG EC tablet Take 1 tablet by mouth Daily. 02/07/2025 propranolol (INDERAL) 10 MG tablet Take 0.5 tablets by mouth 2 (Two) Times a Day. 45 tablet 03/15/2025 04/24/2025 documented as of this encounter Progress Notes * Tres Boswell MA - 03/30/2025 1:55 PM EDT Referral received for Phase II Cardiac Rehab. Staff has reviewed chart and patient does not have a qualifying diagnosis for Phase II Cardiac Rehab at this time. Staff available if further consultation is needed. documented in this encounter H&P Notes * Krystal Soto APRN - 03/30/2025 10:58 AM EDT H&P reviewed. The patient was examined and there are no changes to the H&P. Will proceed with cardiac catheterization plus or minus catheter-based intervention today via right radial access. This was discussed with the patient and family. They verbalized understanding and wished to proceed.Further recommendations to follow procedure. Krystal Soto APRN Cosigned by Shay Cain MD at 03/30/2025 11:21 AM EDT Associated attestation - Shay Cain MD - 03/30/2025 11:21 AM EDT n Source Note - Dolores Dhillon APRN - 03/14/2025 2:00 PM EDT Images from the original note were not included. Date: 03/14/2025 Name: Maureen Delong : 1965 PCP: Zeb Rivero MD REF: Zeb Rivero MD Sleep and/or Cardiology Consulting Provider Note ..Establish Care (Reports having an abnormal stress test at [facility]. Referred here for cardiology consult. /[place]:4/Neck Size: 16 ), Chest Pain (Patient states [...] to pap therapy. Sleep study done at [facility] in 2022.) History of Present Illness The [...] minimal ST depression. HR 63. 04/07/2023 HST [place] Scale is (out of 24): Total score: [...] Necessary Per Protocol; Future - Case Request Supervisor Cured Meats: Cardiac Catheterization/Vascular Study 2. Abnormal stress test - Case Request Supervisor Cured Meats: Cardiac Catheterization/Vascular Study 3. ALFREDO (obstructive sleep apnea) 4. Bilateral leg edema 5. Family history of premature CAD - Case Request Supervisor Cured Meats: Cardiac Catheterization/Vascular Study Other orders - nitroglycerin [...] heart catheterization, including the need for a service car driver. Recommendations: ER if symptoms increase and Report if any new/changing symptoms immediately Follow Up Return for After LHC and echo. Patient or patient eligibility services representative verbalized consent for the use of [...] the provider if any clarification is needed. documented in this encounter Consult Notes * Sapphire Feliz RN - 03/30/2025 1:08 PM EDTAssociated Order(s): IP CONSULT TO AUTOMOBILE TESTER Diabetes Education Patient Name: Maureen Delong Date of : 1965 Admit Date: 03/30/2025 Pt does not meet criteria for diabetes education. Current A1c is 5.8 noted during chart review. Pt is on no home meds exclusively for diabetes and has no documented history of diabetes per H&P. Thank you. Electronically signed by: Sapphire Feliz RN 03/30/25 13:09 EDT documented in this encounter Plan of Treatment Scheduled Referrals Name Type Priority Associated Diagnoses Order Schedule Ambulatory Referral to Cardiac Rehab Outpatient Referral Routine Vitamin B12 deficiency Ordered: 03/30/2025 documented as of this encounter Procedures Procedure Name Priority Date/Time Associated Diagnosis Comments CARDIAC CATHETERIZATION Routine 03/30/20 11:38 AM EDT Chest pain, atypical Abnormal stress test Family history of premature CAD POCT CREATININE Routine 03/30/2025 10:26 AM EDT CBC (NO DIFF) STAT 03/30/2025 10:17 AM EDT HEMOGLOBIN A1C STAT 03/30/2025 10:17 AM EDT LIPID PANEL STAT 03/30/2025 10:17 AM EDT COMPREHENSIVE METABOLIC PANEL STAT 03/30/2025 10:17 AM EDT documented in this encounter Results * LEFT HEART CATH (03/30/2025 11:38 AM EDT) Cath EF Estimated 80 % Anatomical Region Laterality Modality X-Ray Angiograph y Narrative 03/30/2025 11:47 AM EDT Angiographically normal coronary arteries Hyperdynamic LVEF, greater than 75%. Procedure Narrative Left heart catheterization, ventriculography and coronary arteriography performed via the right radial artery using standard 6 Greek catheters. No complications. Hemostasis using a radial band. Coronary Findings Diagnostic Dominance: Right Left Main: The vessel was visualized by angiography, is moderate in size and is angiographically normal. Left Anterior Descending: Large vessel gives rise to a large high first diagonal branch. No angiographic atherosclerosis Left Circumflex: Large nondominant vessel gives rise to a moderate size ramus, and 2 obtuse marginal branches. No angiographic atherosclerosis Right Coronary Artery: Moderate size dominant vessel bifurcating to PDA and a bifurcating posterolateral system. No angiographic atherosclerosis Intervention No interventions have been documented. Left Ventricle There is hyperdynamic left ventricular systolic function. The estimated ejection fraction is 80%. Hemodynamics LV pressures (S/D/E) : 100/16 mmHg AO pressures (S/D/M) : 100/56/ Dolores Dhillon APRN CV CARDIAC CATH ORD ERABLES Final Result * POC Creatinine (03/30/2025 10:26 AM EDT) Creatinine 0.90 0.60 - 1.30 mg/dL 03/30/2025 10:45 AM EDT [facility] Comment:Serial Number: [id number] 9Operator: [id number] Blood 03/30/2025 10:2 6 AM EDT 03/30/2025 10:45 AM EDT Shay Cain MD POINT OF CARE TEST ORDERABLES Final Result [facility]
[address] [place] [address], * (ABNORMAL) Hemoglobin A1c (03/30/2025 10:17 AM EDT) Hemoglobin A1C 5.80(H) 4.80 - 5.60 % 03/30/2025 11:47 AM EDT [facility] Blood Line / Unknown 03/30/2025 10 :17 AM EDT 03/30/2025 10:29 AM EDT [facility] - 03/30/2025 11:47 AM EDT Hemoglobin A1C Ranges: Increased Risk for Diabetes 5.7% to 6.4% Diabetes >= 6.5% Diabetic Goal < 7.0% Krystal Soto APRN LAB BLOOD ORDERABLES Final Result [facility]
[address] [phone] * (ABNORMAL) Lipid Panel (03/30/2025 10:17 AM EDT) Total Cholesterol 254(H) 0 - 200 mg/dL 03/30/2025 11:00 AM EDT [facility] Triglycerides 151(H) 0 - 150 mg/dL 03/30/2025 11:00 AM EDT [facility] HDL Cholesterol 57 40 - 60 mg/dL 03/30/2025 11:00 AM EDT [facility] LDL Cholesterol 170(H) 0 - 100 mg/dL 03/30/2025 11:00 AM EDT [facility] VLDL Cholesterol 27 5 - 40 mg/dL 03/30/2025 11:00 AM EDT [facility] LDL/HDL Ratio 2.93 03/30/2025 11:00 AM EDT [facility] Blood Line / Unknown 03/30/2025 10 :17 AM EDT 03/30/2025 10:29 AM EDT [facility] - 03/30/2025 11:00 AM EDT Cholesterol Reference Ranges (U.S. Department of Health and Human Services ATP III Classifications) Desirable <200 mg/dL Borderline High 200-239 mg/dL High Risk >240 mg/dL Triglyceride Reference Ranges (U.S. Department of Health and Human Services ATP III Classifications) Normal <150 mg/dL Borderline High 150-199 mg/dL High 200-499 mg/dL Very High >500 mg/dL HDL Reference Ranges (U.S. Department of Health and Human Services ATP III Classifications) Low <40 mg/dl (major risk factor for CHD) High >60 mg/dl ('negative' risk factor for CHD) LDL Reference Ranges (U.S. Department of Health and Human Services ATP III Classifications) Optimal <100 mg/dL Near Optimal 100-129 mg/dL Borderline High 130-159 mg/dL High 160-189 mg/dL Very High >189 mg/dL LDL is calculated using the NIH LDL-C calculation. Krystal Soto APRN LAB BLOOD ORDERABLES Final Result [facility]
[address] [place] [address], * Comprehensive Metabolic Panel (03/30/2025 10:17 AM EDT) Glucose 93 65 - 99 mg/dL 03/30/2025 11:00 AM EDT [facility] BUN 9.6 8.0 - 23.0 mg/dL 03/30/2025 11:00 AM EDT [facility] Creatinine 0.78 0.57 - 1.00 mg/dL 03/30/2025 11:00 AM EDT [facility] Sodium 143 136 - 145 mmol/L 03/30/2025 11:00 AM EDT [facility] Potassium 4.6 3.5 - 5.2 mmol/L 03/30/2025 11:00 AM EDT [facility] Chloride 106 98 - 107 mmol/L 03/30/2025 11:00 AM EDT [facility] CO2 26.9 22.0 - 29.0 mmol/L 03/30/2025 11:00 AM EDT [facility] Calcium 9.3 8.6 - 10.5 mg/dL 03/30/2025 11:00 AM EDT [facility] Total Protein 6.6 6.0 - 8.5 g/dL 03/30/2025 11:00 AM EDT [facility] Albumin 4.4 3.5 - 5.2 g/dL 03/30/2025 11:00 AM [facility] ALT (SGPT) 14 1 - 33 U/L 03/30/2025 11:00 AM T [facility] AST (SGOT) 16 1 - 32 U/L 03/30/2025 11:00 AM T [facility] Alkaline Phosphatase 77 39 - 117 U/L 03/30/2025 11:00 AM T [facility] Total Bilirubin 0.3 0.0 - 1.2 mg/dL 03/30/2025 11:00 AM T [facility] Globulin 2.2 gm/dL 03/30/2025 11:00 AM [facility] Comment:Calculated Result A/G Ratio 2.0 g/dL 03/30/2025 11:00 AM [facility] BUN/Creatinine Ratio 12.3 7.0 - 25.0 03/30/2025 11:00 AM T [facility] Anion Gap 10.1 5.0 - 15.0 mmol/L 03/30/2025 11:00 AM [facility] eGFR 87.1 >60.0 mL/min/1.7 3 03/30/2025 11:00 AM [facility] Blood Line / Unknown 03/30/2025 10 :17 AM EDT 03/30/2025 10:29 AM EDT [facility] - 03/30/2025 11:00 AM EDT GFR Categories in Chronic Kidney Disease (CKD) GFR Category GFR (mL/min/1.73) Interpretation G1 90 or greater Normal or high (1) G2 60-89 Mild decrease (1) G3a 45-59 Mild to moderate decrease G3b 30-44 Moderate to severe decrease G4 15-29 Severe decrease G5 14 or less Kidney failure (1)In the absence of evidence of kidney disease, neither GFR category G1 or G2 fulfill the criteria for CKD. eGFR calculation 2020 CKD-EPI creatinine equation, which does not include race as a factor Krystal Soto APRN LAB BLOOD ORDERABLES Final Result [facility]
[address] [place] [address], * CBC (No Diff) (03/30/2025 10:17 AM EDT) WBC 6.53 3.40 - 10.80 10*3/mm3 03/30/2025 10:33 AM EDT [facility] RBC 5.00 3.77 - 5.28 10*6/mm3 03/30/2025 10:33 AM EDT [facility] Hemoglobin 14.9 12.0 - 15.9 g/dL 03/30/2025 10:33 AM EDT [facility] Hematocrit 45.7 34.0 - 46.6 % 03/30/2025 10:33 AM EDT [facility] MCV 91.4 79.0 - 97.0 fL 03/30/2025 10:33 AM EDT [facility] MCH 29.8 26.6 - 33.0 pg 03/30/2025 10:33 AM EDT [facility] MCHC 32.6 31.5 - 35.7 g/dL 03/30/2025 10:33 AM EDT [facility] RDW 12.7 12.3 - 15.4 % 03/30/2025 10:33 AM EDT [facility] RDW-SD 42.6 37.0 - 54.0 fl 03/30/2025 10:33 AM EDT [facility] MPV 9.8 6.0 - 12.0 fL 03/30/2025 10:33 AM EDT [facility] Platelets 250 140 - 450 10*3/mm3 03/30/2025 10:33 AM EDT [facility] Blood Line / Unknown 03/30/2025 10 :17 AM EDT 03/30/2025 10:29 AM EDT us Krystal Soto APRN LAB BLOOD ORDERABLES Final Result [facility]
[address] [place] [address], documented in this encounter Visit Diagnoses Diagnosis Family history of premature CAD- Primary Family history of ischemic heart disease Chest pain, atypical Abnormal stress test Other nonspecific abnormal cardiovascular system function study Family history of premature CAD Family history of ischemic heart disease Vitamin B12 deficiency Other B-complex deficiencies Chest pain, atypical Abnormal stress test Other nonspecific abnormal cardiovascular system function study Chest pain, atypical Abnormal stress test Other nonspecific abnormal cardiovascular system function study Family history of premature CAD Family history of ischemic heart disease documented in this encounter Admitting Diagnoses Diagnosis Chest pain, atypical Abnormal stress test Other nonspecific abnormal cardiovascular system function study Family history of premature CAD Family history of ischemic heart disease documented in this encounter Administered Medications Inactive Administered Medications - up to 3 most recent administrations Medication Order MAR Action Action Date Dose Rate Site aspirin tablet 325 mg 325 mg, Oral, Once, On Linda 03/30/25 at 1010, For 1 dose, Do not exceed 4 grams of aspirin in a 24 hr period. If given for pain, use the following pain scale: Mild Pain = Pain Score of 1-3, CPOT 1-2 Moderate Pain = Pain Score of 4-6, CPOT 3-4 Severe Pain = Pain Score of 7-10, CPOT 5-8 Given 03/30/2025 10:35 AM EDT 325 mg documented in this encounter Active and Recently Administered Medications Times are shown in EDT. Scheduled Medication Order 03/28/2025 03/29/2025 03/30/2025 aspirin tablet 325 mg (COMPLETED)(Linked Group 1) 325 mg, Oral, Once, On Linda 03/30/25 at 1010, For 1 dose, Do not exceed 4 grams of aspirin in a 24 hr period. If given for pain, use the following pain scale: Mild Pain = Pain Score of 1-3, CPOT 1-2 Moderate Pain = Pain Score of 4-6, CPOT 3-4 Severe Pain = Pain Score of 7-10, CPOT 5-8 1035 (Given - Provid er: Cris Amador RN) PRN Medication Order 03/28/2025 03/29/2025 03/30/2025 acetaminophen (TYLENOL) tablet 650 mg 650 mg, Oral, Every 4 Hours PRN, Mild Pain, Fever, temperature greater than 101F, Starting on Linda 03/30/25 at 1203, Based on patient request - if ordered for moderate or severe pain, provider allows for administration of a medication prescribed for a lower pain scale. Do not exceed 4 grams of acetaminophen in a 24 hr period. Max dose of 2gm for AST/ALT greater than 120 units/L. If given for pain, use the following pain scale: Mild Pain = Pain Score of 1-3, CPOT 1-2 Moderate Pain = Pain Score of 4-6, CPOT 3-4 Severe Pain = Pain Score of 7-10, CPOT 5-8 fentaNYL citrate (PF) (SUBLIMAZE) injection (CANCELED) Code / Trauma / Sedation Medication, Starting on Linda 03/30/25 at 1124 1124 (Given - Provid er: Rolando Lopez RN) heparin (porcine) injection (CANCELED) Code / Trauma / Sedation Medication, Starting on Linda 03/30/25 at 1132 1132 (Given - Provid er: Shay Cain MD) iopamidol (ISOVUE-370) 76 % injection (CANCELED) Code / Trauma / Sedation Medication, Starting on Linda 03/30/25 at 1138 1138 (Given - Provid er: Shay Cain MD) lidocaine PF 1% (XYLOCAINE) injection (CANCELED) Code / Trauma / Sedation Medication, Starting on Linda 03/30/25 at 1128 1128 (Given - Provid er: Shay Cain MD) midazolam (VERSED) injection (CANCELED) Code / Trauma / Sedation Medication, Starting on Linda 03/30/25 at 1124 1124 (Given - Provid er: Rolando Lopez RN) niCARdipine (CARDENE) syringe (CANCELED) Code / Trauma / Sedation Medication, Starting on Linda 03/30/25 at 1132 1132 (Given - Provid er: Shay Cain MD) nitroglycerin 100 mcg/mL in D5W syringe (CANCELED) Code / Trauma / Sedation Medication, Starting on Linda 03/30/25 at 1132 1132 (Given - Provid er: Shay Cain MD) Linked Groups Order Group 1: aspirin tablet 325 mg (COMPLETED)Jump to med 325 mg, Oral, Once, On Linda 7/3/25 at 1010, For 1 dose, Do not exceed 4 grams of aspirin in a 24 hr period. If given for pain, use the following pain scale: Mild Pain = Pain Score of 1-3, CPOT 1-2 Moderate Pain = Pain Score of 4-6, CPOT 3-4 Severe Pain = Pain Score of 7-10, CPOT 5-8 And aspirin EC tablet 325 mg (CANCELED) 325 mg, Oral, Daily, First dose on Thu03/31/25 at 0900, Swallow tablet whole. Do not crush, chew, or split. Do not exceed 4 grams of aspirin in a 24 hr period. If given for pain, use the following pain scale: Mild Pain = Pain Score of 1-3, CPOT 1-2 Moderate Pain = Pain Score of 4-6, CPOT 3-4 Severe Pain = Pain Score of 7-10, CPOT 5-8 documented in this encounter Care Teams Quill Machine Tender Relationship Specialty Start Date End Date Zeb Rivero MD [address] [place] [address] [address] PCP - General Adolescent Medicine 03/14/25 documented as of this encounter
--- OUTSIDE RECORDS SUMMARY | 2025-03-30 12:00 | XMS_ITS | Encounter Summary ---
Author Organization [facility] yste Address [address] [place] [address] Care Team Providers Care Control Systems Drafting Officer Name Role Phone Zeb Rivero MD Primary Care Provider [phone] Reason for Visit * Auth/Cert Specialty Diagnoses / Procedures Referred By Contac t Referred To Contact Diagnoses Chest pain, atypical Abnormal stress test Family history of premature CAD Procedures HI CATH PLMT L HRT & ARTS W/NJX & ANGIO IMG S&I Left Heart Cath Referral ID Status Reason Start Date Expiration Date Visits Re quested Visits Authorized [id number] 1 1 Encounter Details Date Type Department Care Team (Late st Contact Info) Description 03/30/2025 12:00 PM EDT - 03/30/2025 1:00 PM EDT Surgery [facility] [address] [place] [id number] Shay Cain MD [address] [facility] [address] [place] [address] Left Heart Cath [63877 (CPT )] Social History Tobacco Use Types [...] AM EDT Shown, Cris Espinal RN * [place] Suicide Severity Rating Scale (Screener/Recent Self-Report) Question Answer Date of Assessment Author 6. Suicidal Behavior (Lifetime) No 10:30 AM EDT Shown, Cris Espinal RN documented as of this encounter Discharge Instructions * Attachments The following attachments cannot be sent through Care Everywhere. * Radial Site Care (Belgian) * Moderate Conscious Sedation Adult Care After (Belgian) * Coronary Angiogram (Belgian) documented in this encounter Medications at Time [...] (Reports having an abnormal stress test at [facility]. Referred here for cardiology consult. /Globe:4/Neck Size: 16 ), Chest Pain (Patient states [...] to pap therapy. Sleep study done at [facility] in 2022.) History of Present Illness The [...] minimal ST depression. HR 63. 04/07/2023 HST Globe Scale is (out of 24): Total score: [...] Necessary Per Protocol; Future - Case Request Toll Test Desk Worker: Cardiac Catheterization/Vascular Study 2. Abnormal stress test - Case Request Toll Test Desk Worker: Cardiac Catheterization/Vascular Study 3. ALFREDO (obstructive sleep apnea) 4. Bilateral leg edema 5. Family history of premature CAD - Case Request Toll Test Desk Worker: Cardiac Catheterization/Vascular Study Other orders - nitroglycerin [...] stress test: - Discussed CCTA VS updating [facility] - Schedule left heart catheterization. - Echocardiogram. [...] catheterization, including the need for a bus driver/monitor. Recommendations: ER if symptoms increase and Report if any new/changing symptoms immediately Follow Up Return for After LHC and echo. Patient or patient representative phlebotomy services verbalized consent for the use of Ambient [...] 1:08 PM EDTAssociated Order(s): IP CONSULT TO BRIDGE IRONWORKER HELPER Diabetes Education Patient Name: Maureen Delong Date [...] the right radial artery using standard 6 Latvian catheters. No complications. Hemostasis using a radial [...] 100/16 mmHg AO pressures (S/D/M) : 100/56/ us Dolores Dhillon APRN CV CARDIAC CATH ORD ERABLES Final Result * POC Creatinine (03/30/2025 10:26 AM EDT) Creatinine 0.90 0.60 - 1.30 mg/dL 03/30/2025 10:45 AM EDT [facility] Comment:Serial Number: [id number] 9Operator: [id number] Blood 03/30/2025 10:2 6 AM EDT 03/30/2025 10:45 AM EDT Shay Cain MD POINT OF CARE TEST ORDERABLES Final Result Performing Organization Address City/[facility]/ZIP Co de Phone Number [facility]
[address] [place] [address], * (ABNORMAL) Hemoglobin A1c (03/30/2025 10:17 AM EDT) Hemoglobin A1C 5.80(H) 4.80 - 5.60 % 03/30/2025 11:47 AM EDT [facility] Blood Line / Unknown 03/30/2025 10 :17 AM EDT 03/30/2025 10:29 AM EDT Narrative [facility] - 03/30/2025 11:47 AM EDT Hemoglobin A1C Ranges: Increased Risk for Diabetes 5.7% to 6.4% Diabetes >= 6.5% Diabetic Goal < 7.0% Krystal Soto APRN LAB BLOOD ORDERABLES Final Result Performing Organization Address City/[facility] Co de Phone Number [facility]
[address] [place] [address], * (ABNORMAL) Lipid Panel (03/30/2025 10:17 AM EDT) Total Cholesterol 254(H) 0 - 200 mg/dL 03/30/2025 11:00 AM EDT [facility] Triglycerides 151(H) 0 - 150 mg/dL 03/30/2025 11:00 AM EDT [facility] HDL Cholesterol 57 40 - 60 mg/dL 03/30/2025 11:00 AM EDT [facility] LDL Cholesterol 170(H) 0 - 100 mg/dL 03/30/2025 11:00 AM EDT [facility] VLDL Cholesterol 27 5 - 40 mg/dL 03/30/2025 11:00 AM EDT [facility] LDL/HDL Ratio 2.93 03/30/2025 11:00 AM EDT [facility] Blood Line / Unknown 03/30/2025 10 :17 AM EDT 03/30/2025 10:29 AM EDT Narrative [facility] - 03/30/2025 11:00 AM EDT [...] Soto APRN LAB BLOOD ORDERABLES Final Result [facility]
[address] [place] [address], * Comprehensive Metabolic Panel (03/30/2025 10:17 AM EDT) Glucose 93 65 - 99 mg/dL 03/30/2025 11:00 AM EDT [facility] BUN 9.6 8.0 - 23.0 mg/dL 03/30/2025 11:00 AM EDT [facility] Creatinine 0.78 0.57 - 1.00 mg/dL 03/30/2025 11:00 AM EDT [facility] Sodium 143 136 - 145 mmol/L 03/30/2025 11:00 AM EDT [facility] Potassium 4.6 3.5 - 5.2 mmol/L 03/30/2025 11:00 AM EDT [facility] Chloride 106 98 - 107 mmol/L 03/30/2025 11:00 AM [facility] CO2 26.9 22.0 - 29.0 mmol/L 03/30/2025 11:00 AM [facility] Calcium 9.3 8.6 - 10.5 mg/dL 03/30/2025 11:00 AM [facility] Total Protein 6.6 6.0 - 8.5 g/dL 03/30/2025 11:00 AM [facility] Albumin 4.4 3.5 - 5.2 g/dL 03/30/2025 11:00 AM [facility] ALT (SGPT) 14 1 - 33 U/L 03/30/2025 11:00 AM [facility] AST (SGOT) 16 1 - 32 U/L 03/30/2025 11:00 AM [facility] Alkaline Phosphatase 77 39 - 117 U/L 03/30/2025 11:00 AM [facility] Total Bilirubin 0.3 0.0 - 1.2 mg/dL 03/30/2025 11:00 AM [facility] Globulin 2.2 gm/dL 03/30/2025 11:00 AM [facility] Comment:Calculated Result A/G Ratio 2.0 g/dL 03/30/2025 11:00 AM [facility] BUN/Creatinine Ratio 12.3 7.0 - 25.0 03/30/2025 11:00 AM [facility] Anion Gap 10.1 5.0 - 15.0 mmol/L 03/30/2025 11:00 AM [facility] eGFR 87.1 >60.0 mL/min/1.7 3 03/30/2025 11:00 AM [facility] Blood Line / Unknown 03/30/2025 10 :17 AM EDT 03/30/2025 10:29 AM [facility] - 03/30/2025 11:00 AM EDT [...] Soto APRN LAB BLOOD ORDERABLES Final Result [facility]
[address] [place] [address], * CBC (No Diff) (03/30/2025 10:17 AM EDT) WBC 6.53 3.40 - 10.80 10*3/mm3 03/30/2025 10:33 AM EDT [facility] RBC 5.00 3.77 - 5.28 10*6/mm3 03/30/2025 10:33 AM EDT [facility] Hemoglobin 14.9 12.0 - 15.9 g/dL 03/30/2025 10:33 AM EDT [facility] Hematocrit 45.7 34.0 - 46.6 % 03/30/2025 10:33 AM EDT [facility] MCV 91.4 79.0 - 97.0 fL 03/30/2025 10:33 AM EDT [facility] MCH 29.8 26.6 - 33.0 pg 03/30/2025 10:33 AM EDT [facility] MCHC 32.6 31.5 - 35.7 g/dL 03/30/2025 10:33 AM EDT [facility] RDW 12.7 12.3 - 15.4 % 03/30/2025 10:33 AM EDT [facility] RDW-SD 42.6 37.0 - 54.0 fl 03/30/2025 10:33 AM EDT [facility] MPV 9.8 6.0 - 12.0 fL 03/30/2025 10:33 AM EDT [facility] Platelets 250 140 - 450 10*3/mm3 03/30/2025 10:33 AM EDT [facility] Blood Line / Unknown 03/30/2025 10 :17 AM EDT 03/30/2025 10:29 AM EDT Krystal Soto APRN LAB BLOOD ORDERABLES Final Result [facility]
[address] [place] [address], documented in this encounter Visit Diagnoses Diagnosis [...] 1124 [id number] (Given - Provid er: Rolando Lopez, PAYAM) heparin (porcine) injection (CANCELED) Code / Trauma [...] 5-8 documented in this encounter Care Teams Control Systems Drafting Officer Relationship Specialty Start Date End Date Zeb Rivero MD [address] [place] [address] [place] [address] PCP - General Adolescent Medicine 03/14/25 documented as of this encounter
--- OUTSIDE RECORDS SUMMARY | 2025-04-12 10:00 | XMS_ITS | Encounter Summary ---
Author Organization [facility] Address [address] [place] [address] Care Team Providers Care Industrial Electrical Engineer Name Role Phone Zeb Rivero MD Primary Care Provider [phone] Reason for Visit * Reason Comments [facility] FOLLOW UP Pt states no stents were placed. She reports having nagging pains in her chest from time to time. Encounter Details Date Type Department Care Team (Late st Contact Info) Description 04/12/2025 10:00 AM EDT Office Visit [facility] [address] [place] [address] Dolores Dhillon APRN [address] [place] [address] Chest pain, atypical (Primary Dx); Arm edema Social History Tobacco Use Types Packs/Day Years [...] no 03/30/2025 Feels Threatened by Someone no 070 11/2024 Does Anyone Try to Keep You [...] Sign Reading Time Taken Comments Blood Pressure 114/78 04/12/2025 10:13 AM EDT Pulse 63 04/12/2025 10:13 AM EDT Temperature - - Respiratory Rate - - Oxygen Saturation 98% 04/12/2025 10:13 AM EDT Inhaled Oxygen Concentration - - Weight 48.1 kg (106 lb 1.6 oz) 04/12/2025 10:13 AM EDT Height 149.9 cm (4' 11 ) 04/12/2025 10:13 AM EDT Body Mass Index 21.43 04/12/2025 10:13 AM EDT documented in this encounter Progress Notes * Dolores Dhillon, GOOD - 04/12/2025 10:00 AM EDTAssociated Order(s): ECG 12 Lead Pre-Procedure Diagnose(s): Chest pain, atypical Post-Procedure Diagnose(s): Chest pain, atypical Images from the original note were not included. Date: 04/12/2025 Name: Maureen Delong : 1965 PCP: Zeb Rivero MD REF: No ref. provider found Sleep and/or Cardiology Consulting Provider Note ..[facility] FOLLOW UP (Pt states no stents were placed. She reports having nagging pains in her chest from time to time. ) History of Present Illness The patient is a 59-year-old female who presents for follow-up after a left heart catheterization and echocardiogram due to chest pain. She reports that her arm was significantly swollen following the procedure, although the swelling has since subsided. She has been applying heat to the area twice daily. Her chest pain persists, described as a mild, nagging discomfort. 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 Angiographically normal coronary arteries ?? Hyperdynamic LVEF, greater than 75%. 02/21/2025 Abnormal Nuclear Stress Test 02/06/25 EKG- [...] three doses, Disp: 100 tablet, Rfl: 11 pantoprazole (PROTONIX) 40 MG EC tablet, Take 1 tablet by mouth Daily., Disp: , Rfl: propranolol (INDERAL) 10 MG tablet, Take 0.5 tablets by mouth 2 (Two) Times a Day., Disp: 45 tablet, Rfl: 0 Past Medical History: Diagnosis Date Gastritis Migraines Vitamin B12 deficiency Patient Active Problem List Diagnosis Chest pain, atypical Gastritis Migraines Vitamin B12 deficiency Abnormal stress test ALFREDO (obstructive sleep apnea) Tobacco abuse Bilateral leg edema Family history of premature CAD Arm edema Family History Problem Relation Age of Onset [...] Never Sexual activity: Defer Vital Signs: BP 114/78 (BP Location: Right arm, Patient Position: Sitting, Cuff Size: Adult) Pulse 63 Ht 149.9 cm (59 ) Wt 48.1 kg (106 lb 1.6 oz) SpO2 98% BMI 21.43 kg/m?? Estimated body mass index is 21.43 kg/m?? as calculated from the following: Height as of this encounter: 149.9 cm (59 ). Weight as of this encounter: 48.1 kg (106 lb 1.6 oz). Physical Exam Vitals reviewed. Constitutional: Appearance: Normal appearance. She is well-developed. HENT: Head: Normocephalic and atraumatic. Eyes: General: No scleral icterus. Pupils: Pupils are equal, round, and reactive to light. Cardiovascular: Rate and Rhythm: Regular rhythm. Bradycardia present. Heart sounds: Normal heart sounds. No murmur heard. Pulmonary: Effort: Pulmonary effort is normal. Breath sounds: Normal breath sounds. No wheezing or rhonchi. Musculoskeletal: General: Normal range of motion. Right lower leg: No edema. Left lower leg: No edema. Skin: General: Skin is warm and dry. Capillary Refill: Capillary refill takes less than 2 seconds. Coloration: Skin is not cyanotic. Nails: There is no clubbing. Comments: Mild edema RFA at LHC insertion site Neurological: Mental Status: She is alert and oriented to person, place, and time. Motor: No weakness. Gait: Gait normal. Psychiatric: Mood and Affect: Mood normal. Behavior: Behavior is cooperative. Thought Content: Thought content normal. Physical Exam Extremities: Left arm with mild puffiness Results Imaging - Left heart catheterization: No blockages ECG 12 Lead Date/Time: 04/12/2025 10:44 AM Performed by: Dolores Dhillon APRN Authorized by: Dolores Dhillon APRN Comparison: compared with previous ECG from 02/06/2025 Similar to previous ECG Rhythm: sinus rhythm and sinus bradycardia Rate: bradycardic BPM: 53 ST Segments: ST segments normal T Waves: T waves normal QRS axis: normal Other: no other findings Clinical impression: normal ECG Assessment and Plan Diagnoses and all orders for this visit: 1. Chest pain, atypical (Primary) - ECG 12 Lead 2. Arm edema Assessment & Plan 1. Chest pain: -03/2025 [facility] without intervention -STRONG family history of premature CAD (mother passed at age 34) -Smoker - Echocardiogram will be scheduled to investigate the cause of chest discomfort. - If echocardiogram shows abnormalities, further steps will be taken to address the issue. - Advised to monitor chest pain and report any changes or worsening symptoms. 2. Arm swelling: - Apply heat to the area a couple of times a day to reduce swelling. - Patient education on the use of heat therapy to alleviate swelling. - Discussed that swelling is common post-catheterization and should improve with time. - Advised to monitor the arm for any signs of infection or worsening swelling and report if such symptoms occur. Follow-up: Next available echocardiogram appointment. Recommendations: ER if symptoms increase and Report if any new/changing symptoms immediately Follow Up Return for after echo/CP. Patient or patient software sales representative verbalized consent for the use of Ambient Listening during the visit with Dolores Dhillon APRN for chart documentation. 04/12/2025 10:50 EDT Dolores Dhillon APRN 04/12/2025 Please note that this explicitly excludes time spent on other separate billable services such as performing procedures or test interpretation, when applicable. This note was created using dictation software which occasionally transcribes nonsensical phrases. Please contact the provider if any clarification is needed. documented in this encounter Plan of Treatment Not on file documented as of this encounter Procedures Procedure Name Priority Date/Time Associated Diagnosis Comments ECG 12-LEAD Routine 04/12/2025 10:44 AM EDT Chest pain, atypical documented in this encounter Results * ECG 12-LEAD (04/12/2025 10:44 AM EDT) Narrative [facility] ECG - 04/12/2025 10:44 AM EDT Dolores Dhillon APRN 04/12/2025 10:52 AM ECG 12 Lead Date/Time: 04/12/2025 10:44 AM Performed by: Dolores Dhillon APRN Authorized by: Dolores Dhillon APRN Comparison: compared with previous ECG from 02/06/2025 Similar to previous ECG Rhythm: sinus rhythm and sinus bradycardia Rate: bradycardic BPM: 53 ST Segments: ST segments normal T Waves: T waves normal QRS axis: normal Other: no other findings Clinical impression: normal ECG Procedure Note Dolores Dhillon APRN - 04/12/2025 10:00 AM EDT Images from the original note were not included. Date: 04/12/2025 Name: Maureen Delong : 1965 PCP: Zeb Rivero MD REF: No ref. provider found Sleep and/or Cardiology Consulting Provider Note ..[facility] FOLLOW UP (Pt states no stents were placed. She reports having nagging pains in her chest from time to time. ) History of Present Illness The patient is a 59-year-old female who presents for follow-up after aleft heart catheterization and echocardiogram due to chest pain. She reports that her arm was significantly swollen following theprocedure, although the swelling has since subsided. She has been applyingheat to the area twice daily. Her chest pain persists, described as amild, nagging discomfort. 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 02/21/2025 Abnormal Nuclear Stress Test 02/06/25 EKG- Sinus Rhythm, minimal ST depression. HR 63. 04/07/2023 HST There are no discontinued medications. No Known Allergies Current Outpatient Medications: acetaminophen (TYLENOL) 325 MG tablet, Take 2 tablets by mouth Every 6(Six) Hours As Needed for Mild Pain., Disp: , Rfl: aspirin 81 MG EC tablet, Take 1 tablet by mouth Daily., Disp: , Rfl: nitroglycerin (NITROSTAT) 0.4 MG SL tablet, 1 under the tongue as neededfor angina, may repeat q5mins for up three doses, Disp: 100 tablet, Rfl:11 pantoprazole (PROTONIX) 40 MG EC tablet, Take 1 tablet by mouth Daily.,Disp: , Rfl: propranolol (INDERAL) 10 MG tablet, Take 0.5 tablets by mouth 2 (Two)Times a Day., Disp: 45 tablet, Rfl: 0 Past Medical History: Diagnosis Date Gastritis Migraines Vitamin B12 deficiency Patient Active Problem List Diagnosis Chest pain, atypical Gastritis Migraines Vitamin B12 deficiency Abnormal stress test ALFREDO (obstructive sleep apnea) Tobacco abuse Bilateral leg edema Family history of premature CAD Arm edema Family History Problem Relation Age of Onset Heart attack Mother Heart disease Mother Stroke Mother Gout Father Diabetes Father Heart attack Father Heart disease Father Other (HIGH BLOOD PRESSURE) Father Kidney disease Father family history includes Diabetes in her father; Gout in her father; HIGHBLOOD PRESSURE in her father; Heart attack in her father and mother; Heartdisease in her father and mother; Kidney disease in her father; Stroke inher mother. Social History Socioeconomic History Marital status: Tobacco Use Smoking status: Every Day Current packs/day: 1.00 Average packs/day: 1 pack/day for 15.5 years (15.5 ttl pk-yrs) Types: Cigarettes Start date: 2009 Passive exposure: Current Smokeless tobacco: Never Vaping Use Vaping status: Never Used Substance and Sexual Activity Alcohol use: Never Drug use: Never Sexual activity: Defer Vital Signs: BP 114/78 (BP Location: Right arm, Patient Position: Sitting, Cuff Size:Adult) Pulse 63 Ht 149.9 cm (59 ) Wt 48.1 kg (106 lb 1.6 oz) SpO2 98% BMI 21.43 kg/m Estimated body mass index is 21.43 kg/m as calculated from thefollowing: Height as of this encounter: 149.9 cm (59 ). Weight as of this encounter: 48.1 kg (106 lb 1.6 oz). Physical Exam Vitals reviewed. Constitutional: Appearance: Normal appearance. She is well-developed. HENT: Head: Normocephalic and atraumatic. Eyes: General: No scleral icterus. Pupils: Pupils are equal, round, and reactive to light. Cardiovascular: Rate and Rhythm: Regular rhythm. Bradycardia present. Heart sounds: Normal heart sounds. No murmur heard. Pulmonary: Effort: Pulmonary effort is normal. Breath sounds: Normal breath sounds. No wheezing or rhonchi. Musculoskeletal: General: Normal range of motion. Right lower leg: No edema. Left lower leg: No edema. Skin: General: Skin is warm and dry. Capillary Refill: Capillary refill takes less than 2 seconds. Coloration: Skin is not cyanotic. Nails: There is no clubbing. Comments: Mild edema RFA at [facility] insertion site Neurological: Mental Status: She is alert and oriented to person, place, and time. Motor: No weakness. Gait: Gait normal. Psychiatric: Mood and Affect: Mood normal. Behavior: Behavior is cooperative. Thought Content: Thought content normal. Physical Exam Extremities: Left arm with mild puffiness Results Imaging - Left heart catheterization: No blockages ECG 12 Lead Date/Time: 04/12/2025 10:44 AM Performed by: Dolores Dhillon APRN Authorized by: Dolores Dhillon APRN Comparison: compared withprevious ECG from 02/06/2025 Similar to previous ECG Rhythm: sinus rhythm and sinus bradycardia Rate: bradycardic BPM: 53 ST Segments: ST segments normal T Waves: T waves normal QRS axis: normal Other: no other findings Clinical impression: normal ECG Assessment and Plan Diagnoses and all orders for this visit: 1. Chest pain, atypical (Primary) - ECG 12 Lead 2. Arm edema Assessment & Plan 1. Chest pain: -03/2025 [facility] without intervention -STRONG family history of premature CAD (mother passed at age 34) -Smoker - Echocardiogram will be scheduled to investigate the cause of chestdiscomfort. - If echocardiogram shows abnormalities, further steps will be taken toaddress the issue. - Advised to monitor chest pain and report any changes or worseningsymptoms. 2. Arm swelling: - Apply heat to the area a couple of times a day to reduce swelling. - Patient education on the use of heat therapy to alleviate swelling. - Discussed that swelling is common post-catheterization and shouldimprove with time. - Advised to monitor the arm for any signs of infection or worseningswelling and report if such symptoms occur. Follow-up: Next available echocardiogram appointment. Recommendations: ER if symptoms increase and Report if any new/changingsymptoms immediately Follow Up Return for after echo/CP. Patient or patient software sales representative verbalized consent for the use ofAmbient Listening during the visit with Dolores Dhillon APRN forchart documentation. 04/12/2025 10:50 EDT Dolores Dhillon APRN 04/12/2025 Please note that this explicitly excludes time spent on other separatebillable services such as performing procedures or test interpretation,when applicable. This note was created using dictation software whichoccasionally transcribes nonsensical phrases. Please contact the providerif any clarification is needed. us Dolores Dhillon APRN ECG ORDERABLES Fin al Result ECG documented in this encounter Visit Diagnoses Diagnosis Chest pain, atypical- Primary Arm edema Edema documented in this encounter Care Teams Industrial Electrical Engineer Relationship Specialty Start Date End Date Zeb Rivero MD [facility] [address] [facility] [address] [place] [address] PCP - General Adolescent Medicine 03/14/25 documented as of this encounter
--- OUTSIDE RECORDS SUMMARY | 2025-04-21 10:30 | XMS_ITS | Encounter Summary ---
Author Organization [facility] Address [address] [place] [address] Care Team Providers Care Tapper Helper Name Role Phone Zeb Rivero MD Primary Care Provider [phone] Reason for Visit * Diagnostic Imaging (Routine) - Closed Specialty Diagnoses / Procedures Referred By Contac t Referred To Contact Diagnoses Chest pain, atypical Procedures Adult Transthoracic Echo Complete W/ Cont if Necessary Per Protocol Dolores Dhillon APRN [address] [place] [address] Phone: tel: fax: [facility] CARDIOLOGY [address] [place] [address] Phone: tel: fax: Referral ID Status Reason Start Date Expiration Date Visits Re quested Visits Authorized [id number] Closed 03/14/2025 06/13/2026 1 1 Encounter Details Date Type Department Care Team (Latest Contact Info) Description 04/21/2025 10:30 AM EDT Ancillary Procedure [facility] CARDIOLOGY [address] [place] [address] [place] [phone] Chest pain, atypical Social History Tobacco [...] left ventricular wall motion is normal. Dolores Dhillon APRN CV ECHO ORDERABLES Final Result documented in this encounter Visit Diagnoses Diagnosis Chest pain, atypical documented in this encounter Care Teams Tapper Helper Relationship Specialty Start Date End Date Zeb Rivero MD [address] [facility] [address] [facility] [address] PCP - General Adolescent Medicine 03/14/25 documented as of this encounter
--- NOTE | 2025-05-03 08:54 | CT_ITS ---
FINAL REPORT TECHNIQUE: Axial CT images of the chest were obtained without contrast. Low-dose protocol was utilized. This study was performed with techniques to keep radiation doses as low as reasonably achievable (ALARA). Individualized dose reduction techniques using automated exposure control or adjustment of mA and/or kV according to the patient's size were employed. CLINICAL HISTORY: SCREENING CURRENT SMOKER 1 PPD X 15 YEARS COMPARISON: None FINDINGS: CT CHEST WITHOUT, LOW DOSE SCREENING CT Di Vol: 2.90 mGy DLP: 96.38 mGy*cm There is no axillary, mediastinal, or hilar adenopathy. The heart size is normal. There are mild coronary artery calcifications. There is no pleural or pericardial effusion. The lung windows show no suspicious mass or nodule. A fat containing left diaphragmatic hernia is noted. Limited images of the upper abdomen demonstrate no acute findings. IMPRESSION: No suspicious mass or nodule. LR Category 1: 12 month follow-up low-dose chest CT is recommended per Fleischner criteria. Reviewed, Interpreted and Dictated by Ramon Almonte MD Transcribed by Miryam Conner Authenticated and [facility]
--- NOTE | 2025-05-03 08:54 | MM_ITS ---
PROCEDURE INFORMATION: Exam: MG Bilateral Screening 3D Mammography Exam date and time: 05/03/2025 9:18 AM Age: 59 years old Clinical indication: Screening examination. Paternal aunts and paternal cousins had breast cancer. TECHNIQUE: Imaging protocol: Bilateral Screening tomosynthesis and 2D mammography including computer-aided detection (CAD) when performed. COMPARISON: 1. MG MM DIG SCREENING MAMM BI W/CAD 07/20/2023 10:15 AM 2. MG MM DIG SCREENING MAMM BI W/CAD 07/14/2022 3:13 PM 3. MG DMDXUR DIG MAMM-DX UNI-RT W/CAD 07/06/2017 1:45 PM 4. MG DMSB DIG MAMM-SCREEN CARO W/CAD 12/24/2016 3:52 PM FINDINGS: MAMMOGRAPHY: Breast composition: The breasts are heterogeneously dense, which may obscure small masses. Mass: No suspicious mass. Architectural distortion: None. Calcifications: No suspicious calcifications. Asymmetric density: No developing asymmetry. Skin thickening: None. Axillary adenopathy: None. IMPRESSION: No mammographic evidence of malignancy. Annual screening is recommended unless otherwise clinically indicated. ASSESSMENT: BI-RADS Category 1: Negative.
--- NOTE | 2025-05-03 08:54 | XR_ITS ---
FINAL REPORT CLINICAL HISTORY: SCREENING COMPARISON: None FINDINGS: Using L1-4, the bone mineral density of the spine is 0.678 g/cm2, corresponding to T-score of -3.4, consistent with osteoporosis. Using the left hip, the bone mineral density of the total hip is 0.610 g/cm2, corresponding to a T-score of -2.7, consistent with osteoporosis. Using the right hip, the bone mineral density of the femoral neck is 0.572 g/cm2, corresponding to a T-score of -2.5, consistent with osteoporosis. FRAX not reported because some T-score at or below -2.5. NOTE: T-score: Standard deviation compared with peak bone mass of young adult mean. *Following the recommendations of the International Society of Bone densitometry, classification of hip BMD is based on the lower of two T-scores; total hip or femoral neck. IMPRESSION: Diminished bone mineral density consistent with osteoporosis. Reviewed, Interpreted and Dictated by Ramon Almonte MD Transcribed by Miryam Conner Authenticated and [facility]
--- OUTSIDE RECORDS SUMMARY | 2025-05-03 08:56 | XMS_ITS | Clinical Summary ---
Author Organization [facility] Address [address] [place] [address] Care Team Providers Care Credit Verification Clerk Name Role Phone Zeb Rivero MD Primary Care Provider Allergies No known active allergies Medications pantoprazole (PROTONIX) 40 MG EC tablet Take 1 tablet by mouth Daily. 5 Active acetaminophen (TYLENOL) 325 MG tablet Take 2 tablets by mouth Every 6 (Six) Hours As Needed for Mild Pain. Active aspirin 81 MG EC tablet Take 1 tablet by mouth Daily. Active nitroglycerin (NITROSTAT) 0.4 MG SL tablet 1 under the tongue as needed for angina, may repeat q5mins for up three doses 100 tablet 11 5 Active propranolol (INDERAL) 10 MG tablet Take 1/2 (one-half) tablet by mouth twice daily 45 tablet 5 Active propranolol (INDERAL) 10 MG tablet Take 0.5 tablets by mouth 2 (Two) Times a Day. 45 tablet 5 04/24/20 25 Discontinued Active Problems Problem Noted Date Diagnosed Date Arm edema 04/12/2025 Chest pain, atypical 03/14/2025 Abnormal stress test 03/14/2025 ALFREDO (obstructive sleep apnea) 03/14/2025 Tobacco abuse 03/14/2025 Bilateral leg edema 03/14/2025 Family history of premature CAD 03/14/2025 Gastritis Migraines Vitamin B12 deficiency Encounters Date Type Department Care Team Description 04/23/2025 Refill [facility] [address] [address] Dolores Dhillon APRN Med Refill 04/21/2025 10:30 AM EDT Ancillary Procedure [facility] [address] [address] Chest pain, atypical 04/21/2025 Travel 04/12/2025 10:00 AM EDT Office Visit [facility] [address] [address] Dolores Dhillon APRN Chest pain, atypical (Primary Dx); Arm edema 04/12/2025 Travel 03/30/2025 12:00 PM EDT - 03/30/2025 1:00 PM EDT Surgery [facility] S[facility]IOR [facility]IPPING CLERK [address] [place] [address] Shay Cain MD Left Heart Cath [98109 (CPT )] 03/30/2025 10:05 AM EDT - 03/30/2025 3:16 PM EDT Hospital Encounter [facility] [address] [place] [address] Shay Cain MD Vitamin B12 deficiency (Primary Dx); Chest pain, atypical; Abnormal stress test; Family history of premature CAD Discharge Disposition: Home or Self Care 03/30/2025 Travel 03/21/2025 Telephone [facility] [address] [address] Dolores Dhillon APRN 03/14/2025 2:00 PM EDT Office Visit [facility] [address] [address] Dolores Dhillon APRN Chest pain, atypical; Abnormal stress test; ALFREDO (obstructive sleep apnea); Bilateral leg edema; Family history of premature CAD 03/14/2025 Travel 03/14/2025 Telephone [facility] [address] [address] Dolores Dhillon APRN from Last 3 Months Family History Medical History Relation Name Comments Diabetes Father Gout Father HIGH BLOOD PRESSURE Father Heart attack Father Heart disease Father Kidney disease Father Heart attack Mother Heart disease Mother Stroke Mother Relation Name Status Comments Father Mother Social History Tobacco Use Types Packs/Day Years [...] on file Sexual Orientation Not on file Last Filed Vital Signs Vital Sign Reading Time Taken Comments Blood Pressure 126/79 04/21/2025 10:47 AM EDT Pulse 63 04/12/2025 10:13 AM EDT Temperature 36.1 C (97 F) 03/30/2025 10:15 AM EDT Respiratory Rate 16 03/30/2025 11:40 AM EDT Oxygen Saturation 98% 04/12/2025 10:13 AM EDT Inhaled Oxygen Concentration - - Weight 48.1 kg (106 lb) 04/21/2025 10:47 AM EDT Height 149.9 cm (4' 11 ) 04/21/2025 10:47 AM EDT Body Mass Index 21.41 04/21/2025 10:47 AM EDT Plan of Treatment Health Maintenance Due Date Last Done Comments Annual Gynecologic Pelvic and Breast Exam 1965 Pneumococcal Vaccine 50+ (1 of 2 - PCV) 12/22/1983 TDAP/TD VACCINES (1 - Tdap) 12/22/1983 MAMMOGRAM 2004 COLOGUARD 2009 COLON CANCER SCREENING 5 YEA R SIGMOIDOSCOPY 2009 COLONOSCOPY 2009 [address] CANCER SCREENING [address] COLONOGRAPHY 2009 FECAL OCCULT BLOOD TEST 2009 FIT Testing (1 year) 2009 ZOSTER VACCINE (1 of 2) 2014 COVID-19 Vaccine (3 - season) 2024, 12/20/2020 ANNUAL PHYSICAL 03/14/2025 HEPATITIS C SCREENING 03/14/2025 INFLUENZA VACCINE 06/28/2025 Procedures Procedure Name Priority Date/Time Associated Diagnosis Comments ECHO COMPLETE W/ DOPPLER AND COLOR FLOW Routine 04/21/2025 10:47 AM EDT Chest pain, atypical ECG 12-LEAD Routine 04/12/2025 10:44 AM EDT Chest pain, atypical CARDIAC CATHETERIZATION Routine 03/30/20 11:38 AM EDT Chest pain, atypical Abnormal stress test Family history of premature CAD POCT CREATININE Routine 03/30/2025 10:26 AM EDT HEMOGLOBIN A1C STAT 03/30/2025 10:17 AM EDT LIPID PANEL STAT 03/30/2025 10:17 AM EDT COMPREHENSIVE METABOLIC PANEL STAT 03/30/2025 10:17 AM EDT CBC (NO DIFF) STAT 03/30/2025 10:17 AM EDT SCANNED EKG 02/06/2025 SCANNED - LABS 02/06/2025 from Last 3 Months Results * ECHO COMPLETE W/ DOPPLER AND [...] Dhillon APRN CV ECHO ORDERABLES Final Result * ECG 12-LEAD (04/12/2025 10:44 AM EDT) Narrative ECG - 04/12/2025 10:44 AM EDT Dolores [...] impression: normal ECG Procedure Note Dolores Dhillon FINANCIAL MANAGEMENT CONSULTANT - 04/12/2025 10:00 AM EDT Images from the original note were not included. Date: 04/12/2025 Name: Maureen Delong : 1965 PCP: Zeb Rivero MD REF: No ref. provider found Sleep and/or Cardiology Consulting Provider Note ..[facility] FOLLOW UP (Pt states no stents [...] Smoker Edema on occasion Asymptomatic Bradycardia 03/30/25 [facility] Angiographically normal coronary arteries Hyperdynamic LVEF, [...] no clubbing. Comments: Mild edema RFA at C insertion site Neurological: Mental Status: She is [...] Assessment & Plan 1. Chest pain: -03/2025 [facility] without intervention -STRONG family history of [...] Return for after echo/CP. 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 04/12/2025 10:50 EDT Dolores Dhillno APRN 04/12/2025 Please note that this explicitly excludes time spent on other separatebillable services such as performing procedures or test interpretation,when applicable. This note was created using dictation software whichoccasionally transcribes nonsensical phrases. Please contact the providerif any clarification is needed. Dolores Dhillon APRN ECG ORDERABLES Fin al Result ECG * LEFT HEART CATH (03/30/2025 11:38 AM EDT) Cath EF Estimated 80 % Anatomical Region Laterality Modality X-Ray Angiograph y Narrative 03/30/2025 11:47 AM EDT Angiographically normal coronary arteries Hyperdynamic LVEF, greater than 75%. Procedure Narrative Left heart catheterization, ventriculography and coronary arteriography performed via the right radial artery using standard 6 Cymraes catheters. No complications. Hemostasis using a radial [...] * POC Creatinine (03/30/2025 10:26 AM EDT) Pathologist [facility] Creatinine 0.90 0.60 - 1.30 mg/dL 03/30/2025 10:45 AM EDT [facility] Comment:Serial Number: [id number] 9Operator: [id number] Blood 03/30/2025 10:2 6 AM EDT 03/30/2025 10:45 AM EDT Shay Cain MD POINT OF CARE TEST ORDERABLES Final Result [facility]
[address] [place] [address], * CBC (No Diff) (03/30/2025 10:17 AM EDT) WBC 6.53 3.40 - 10.80 10*3/mm3 03/30/2025 10:33 AM EDT [facility] RBC 5.00 3.77 - 5.28 10*6/mm3 03/30/2025 10:33 AM EDT [facility] Hemoglobin 14.9 12.0 - 15.9 g/dL 03/30/2025 10:33 AM EDT [facility] Hematocrit 45.7 34.0 - 46.6 % 03/30/2025 10:33 AM EDT [facility] MCV 91.4 79.0 - 97.0 fL 03/30/2025 10:33 AM EDT [facility] MCH 29.8 26.6 - 33.0 pg 03/30/2025 10:33 AM EDT [facility] MCHC 32.6 31.5 - 35.7 g/dL 03/30/2025 10:33 AM EDT [facility] RDW 12.7 12.3 - 15.4 % 03/30/2025 10:33 AM EDT [facility] RDW-SD 42.6 37.0 - 54.0 fl 03/30/2025 10:33 AM EDT [facility] MPV 9.8 6.0 - 12.0 fL 03/30/2025 10:33 AM EDT [facility] Platelets 250 140 - 450 10*3/mm3 03/30/2025 10:33 AM EDT [facility] Blood Line / Unknown 03/30/2025 10 :17 AM EDT 03/30/2025 10:29 AM EDT Krystal Soto APRN LAB BLOOD ORDERABLES Final Result Performing Organization Address [facility]/ZIP Co de Phone Number [facility]
[address] [place] [address], * (ABNORMAL) Hemoglobin A1c (03/30/2025 10:17 AM EDT) Hemoglobin A1C 5.80(H) 4.80 - 5.60 % 03/30/2025 11:47 AM EDT [facility] Blood Line / Unknown 03/30/2025 10 :17 AM EDT 03/30/2025 10:29 AM EDT Narrative [facility] - 03/30/2025 11:47 AM EDT Hemoglobin A1C Ranges: Increased Risk for Diabetes 5.7% to 6.4% Diabetes >= 6.5% Diabetic Goal < 7.0% us Krystal Soto APRN LAB BLOOD ORDERABLES Final Result Performing Organization Address City/[facility] Co de Phone Number [facility]
[address] [place] [address], * (ABNORMAL) Lipid Panel (03/30/2025 10:17 AM EDT) Total Cholesterol 254(H) 0 - 200 mg/dL 03/30/2025 11:00 AM EDT [facility] Triglycerides 151(H) 0 - 150 mg/dL 03/30/2025 11:00 AM EDT [facility] HDL Cholesterol 57 40 - 60 mg/dL 03/30/2025 11:00 AM EDT [facility] LDL Cholesterol 170(H) 0 - 100 mg/dL 03/30/2025 11:00 AM EDT [facility] VLDL Cholesterol 27 5 - 40 mg/dL 03/30/2025 11:00 AM EDT [facility] LDL/HDL Ratio 2.93 03/30/2025 11:00 AM EDT [facility] Blood Line / Unknown 03/30/2025 10 :17 AM EDT 03/30/2025 10:29 AM EDT Narrative [facility] - 03/30/2025 11:00 AM EDT Cholesterol [...] is calculated using the NIH LDL-C calculation. us Krystal Soto APRN LAB BLOOD ORDERABLES Final Result [facility]
[address] [place] [address], * Comprehensive Metabolic Panel (03/30/2025 10:17 AM EDT) Glucose 93 65 - 99 mg/dL 03/30/2025 11:00 AM EDT [facility] BUN 9.6 8.0 - 23.0 mg/dL 03/30/2025 11:00 AM EDT [facility] Creatinine 0.78 0.57 - 1.00 mg/dL 03/30/2025 11:00 AM [facility] Sodium 143 136 - 145 mmol/L 03/30/2025 11:00 AM [facility] Potassium 4.6 3.5 - 5.2 mmol/L 03/30/2025 11:00 AM [facility] Chloride 106 98 - 107 mmol/L 03/30/2025 11:00 AM [facility] CO2 26.9 22.0 - 29.0 mmol/L 03/30/2025 11:00 AM [facility] Calcium 9.3 8.6 - 10.5 mg/dL 03/30/2025 11:00 AM [facility] Total Protein 6.6 6.0 - 8.5 g/dL 03/30/2025 11:00 AM [facility] Albumin 4.4 3.5 - 5.2 g/dL 03/30/2025 11:00 AM [facility] ALT (SGPT) 14 1 - 33 U/L 03/30/2025 11:00 AM [facility] AST (SGOT) 16 1 - 32 U/L 03/30/2025 11:00 AM [facility] Alkaline Phosphatase 77 39 - 117 U/L 03/30/2025 11:00 AM [facility] Total Bilirubin 0.3 0.0 - 1.2 mg/dL 03/30/2025 11:00 AM [facility] Globulin 2.2 gm/dL 03/30/2025 11:00 AM [facility] Comment:Calculated Result A/G Ratio 2.0 g/dL 03/30/2025 11:00 AM [facility] BUN/Creatinine Ratio 12.3 7.0 - 25.0 03/30/2025 11:00 AM [facility] Anion Gap 10.1 5.0 - 15.0 mmol/L 03/30/2025 11:00 AM [facility] eGFR 87.1 >60.0 mL/min/1.7 3 03/30/2025 11:00 AM EDT [facility] Blood Line / Unknown 03/30/2025 10 :17 AM EDT 03/30/2025 10:29 AM EDT Narrative [facility] - 03/30/2025 11:00 AM EDT GFR [...] Soto APRN LAB BLOOD ORDERABLES Final Result [facility]
[address] [place] [address], * ECG Scan (02/06/2025) Dolores Dhillon APRN ECG ORDERABLES Fin al Result * LABS SCANNED (02/06/2025) Dolores Dhillon APRN LAB BLOOD ORDERABLE S Final Result from Last 3 Months Insurance [employer] Care Teams Credit Verification Clerk Relationship Specialty Start Date End Date Zeb Rivero MD [address] [facility] [address] [facility] [address] [facility] [place] [address] PCP - General Adolescent Medicine 03/14/25
--- OUTSIDE RECORDS SUMMARY | 2025-05-03 08:56 | XMS_ITS | Encounter Summary ---
[facility] Address [address] [place] [address] Care Team Providers Care Beehive Kiln Charcoal Burner Name Role Phone Zeb Rivero MD Primary Care Provider [phone] Encounter Details Date Type Department Care Team (Late st Contact Info) Description 03/14/2025 Telephone [facility] [address] [place] [address] Dolores Dhillon APRN [address] [place], [place] [id number] Social History Tobacco Use Types Packs/Day Years [...] on file documented as of this encounter Miscellaneous Notes * Telephone Encounter - Mitzi Sales RegSched Rep - 03/14/2025 11:04 AM EDT LVM FOR PT TO CALL BACK TO VERIFY HER INSURANCE. IF PT HAS [employer]-HMO PT WILL NEED TO CANCEL APPTFOR TODAY WE ARE NOT IN NETWORK WITH HMO. IF SHE HAS PPO SHE CAN KEEP HER APPT FOR TODAY. HUB OKTO RELAY. documented in this encounter Plan of Treatment Not on file documented as of this encounter Visit Diagnoses Not on filedocumented in this encounter Care Teams Beehive Kiln Charcoal Burner Relationship Specialty Start Date End Date Zeb Rivero MD [address] [facility] [address] [place] [id number] PCP - General Adolescent Medicine 03/14/25 documented as of this encounter
--- OUTSIDE RECORDS SUMMARY | 2025-05-03 08:56 | XMS_ITS | Encounter Summary ---
Author Organization [facility] Address [address] [place] [address] Care Team Providers Care Tower Helper Name Role Phone Zeb Rivero MD Primary Care Provider [phone] Encounter Details Date Type Department Care Team (Latest Contact Info) Description 04/21/2025 Travel Social History Tobacco Use Types Packs/Day Years [...] on file documented as of this encounter Plan of Treatment Not on file documented as of this encounter Visit Diagnoses Not on filedocumented in this encounter Care Teams Tower Helper Relationship Specialty Start Date End Date Zeb Rivero MD [address] [facility] [address] [facility] [address] [place] [address] PCP - General Adolescent Medicine 03/14/25 documented as of this encounter
--- OUTSIDE RECORDS SUMMARY | 2025-05-03 08:56 | XMS_ITS | Encounter Summary ---
Author Organization [facility] Address [address] [place] [address] Care Team Providers Care Pickling Operator Name Role Phone Zeb Rivero MD Primary Care Provider [phone] Encounter Details Date Type Department Care Team (Latest Contact Info) Description 03/30/2025 Travel Social History Tobacco Use Types Packs/Day [...] on file documented as of this encounter Functional Status * Question Answer [...] AM EDT Shown, Cris Espinal RN * [facility] Suicide Severity Rating Scale (Screener/Recent Self-Report) Question Answer Date of Assessment Author 6. Suicidal Behavior (Lifetime) No 10:30 AM EDT Shown, Cris Espinal RN documented as of this encounter Plan of Treatment Not on file documented as of this encounter Visit Diagnoses Not on filedocumented in this encounter Care Teams Pickling Operator Relationship Specialty Start Date End Date Zeb Rivero MD [address] [facility] [address] [place] [address] PCP - General Adolescent Medicine 03/14/25 documented as of this encounter
--- OUTSIDE RECORDS SUMMARY | 2025-05-03 08:57 | XMS_ITS | Encounter Summary ---
Author Organization [facility] Address [address] [place] [address] Care Team Providers Care Mechanic General Operational Test Name Role Phone Zeb Rivero MD Primary Care Provider [phone] Encounter Details Date Type Department Care Team (Latest Contact Info) Description 03/14/2025 Travel Social History Tobacco Use Types Packs/Day [...] on filedocumented in this encounter Care Teams Mechanic General Operational Test Relationship Specialty Start Date End Date Zeb Rivero MD [facility] [address] [facility] [address] PCP - General Adolescent Medicine 03/14/25 documented as of this encounter
--- OUTSIDE RECORDS SUMMARY | 2025-05-03 08:57 | XMS_ITS | Encounter Summary ---
Author Organization [facility] Address [address] [place] [address] Care Team Providers Care Mica Plate Layer Hand Name Role Phone Zeb Rivero MD Primary Care Provider [phone] Encounter Details Date Type Department Care Team (Latest Contact Info) Description 04/12/2025 Travel Social History Tobacco Use Types Packs/Day [...] on filedocumented in this encounter Care Teams Mica Plate Layer Hand Relationship Specialty Start Date End Date Zeb Rivero MD [address] [facility] [address] [facility] [address] [place] [address] PCP - General Adolescent Medicine 03/14/25 documented as of this encounter
--- OUTSIDE RECORDS SUMMARY | 2025-05-03 08:57 | XMS_ITS | Encounter Summary ---
Author Organization [facility] Address [address] [place] [address] Care Team Providers Care Milieu Counselor Name Role Phone Zeb Rivero MD Primary Care Provider [phone] Encounter Details Date Type Department Care Team (Late st Contact Info) Description 03/21/2025 Telephone [facility] [address] [place] [address] Dolores Dhillon APRN [address] [place], [place] [id number] Social History Tobacco Use Types Packs/Day Years [...] Encounter - Mitzi Sales RegSched Rep - 03/21/2025 2:43 PM EDT PT TRANSFERRED FROM [facility], PT REQUESTED TO CANCEL HER ECHO SCHEDULED 03/22. PT STATED HER INSURANCE ISCHANGING TO [employer] E[employer] 03/28. SHE IS SCHEDULED FOR A HEART CATH 03/30. SHE STATED SHE WOULD LIKE TO WAIT TO RESCHEDULE HER ECHO AFTER HER HEART CATH AT THIS TIME. documented in this encounter Plan of Treatment Not on file documented as of this encounter Visit Diagnoses Not on filedocumented in this encounter Care Teams Milieu Counselor Relationship Specialty Start Date End Date Zeb Rivero MD [address] [facility] [address] [facility] [address] [place] [address] PCP - General Adolescent Medicine 03/14/25 documented as of this encounter
--- OUTSIDE RECORDS SUMMARY | 2025-05-03 08:57 | XMS_ITS | Encounter Summary ---
Author Organization [facility] Address [address] [place] [address] Care Team Providers Care Employee Counselor Name Role Phone Zeb Rivero MD Primary Care Provider [phone] Reason for Visit * Reason Comments Med Refill Encounter Details Date Type Department Care Team (Late st Contact Info) Description 04/23/[address] [facility] [address] [place] [address] Dolores Dhillon APRN [address] [place] [address] Med Refill Social History Tobacco Use Types Packs/Day Years [...] on filedocumented in this encounter Care Teams Employee Counselor Relationship Specialty Start Date End Date Zeb Rivero MD [address] [place] [facility] [address] [place] [address] PCP - General Adolescent Medicine 03/14/25 documented as of this encounter
== END 2025-05-03 23:59 | disposition home or self-care (01) ==
LOC: RAD 08:51
PROVIDERS: PCP Nurse Practitioner Family; Visit Provider Internal Medicine Adolescent Medicine
DX: Z12.31 Encounter for screening mammogram for malignant neoplasm of breast (principal); M81.0 Age-related osteoporosis without current pathological fracture; R92.323 Mammographic fibroglandular density, bilateral breasts; Z12.2 Encounter for screening for malignant neoplasm of respiratory organs; Z80.3 Family history of malignant neoplasm of breast; Z87.891 Personal history of nicotine dependence; Z78.0 Asymptomatic menopausal state
CPT/HCPCS: 71271; 77063; 77067; 77080

== ENCOUNTER 2025-05-28 22:42 | Emergency (ER) | payer OTHER, SELFPAY ==
--- OUTSIDE RECORDS SUMMARY | 2025-03-30 10:05 | XMS_ITS | Encounter Summary ---
Author Organization [facility] Address [address] [place] [address] Care Team Providers Care Hair Dryer Name Role Phone Zeb Rivero MD Primary Care Provider [phone] Reason for Referral * Rehabilitation - Outpatient (Routine) - Pending Review Specialty Diagnoses / Procedures Referred By Contact Referred To Contact Cardiac Rehabilitation Diagnoses Vitamin B12 deficiency Procedures HI OFFICE/OUTPATIENT NEW MODERATE MDM 45 MINUTES Shay Cain MD [address] [facility] [address] [place] [address] Phone: tel: fax: [facility] [address] [place] [address] Phone: tel: Referral ID Status Reason Start Date Expiration Date V isits Requested Visits Authorized [id number] Pending Review 03/30/2025 06/29/2026 1 1 * Diagnostic Medical (Routine) - Pending Review Specialty Diagnoses / Procedures Referred By Contac t Referred To Contact Diagnoses Chest pain, atypical Abnormal stress test Family history of premature CAD Procedures Cardiac Catheterization/Vascular Study Zeb Rivero MD [address] [facility] [address] [facility] [address] [place] [address] Phone: tel: fax: Referral ID Status Reason Start Date Expiration Date V isits Requested Visits Authorized [id number] Pending Review 03/15/2025 06/14/2026 1 1 Reason for Visit * Auth/Cert Specialty Diagnoses / Procedures Referred By Melissa t Referred To Contact Diagnoses Chest pain, atypical Abnormal stress test Family history of premature CAD Procedures HI CATH PLMT L HRT & ARTS W/NJX & ANGIO IMG S&I Left Heart Cath Referral ID Status Reason Start Date Expiration Date Visits Re quested Visits Authorized [id number] 1 1 Encounter Details Date Type Department Care Team (Late st Contact Info) Description 03/30/2025 10:05 AM EDT - 03/30/2025 3:16 PM EDT Hospital Encounter [facility] [address] [place] [address] Shay Cain MD [address] [place] [address] Vitamin B12 deficiency (Primary Dx); Chest pain, atypical; Abnormal stress test; Family history of premature CAD Discharge Disposition: Home or Self Care Social History Tobacco Use Types Packs/Day Years Used Date Smoking Tobacco: Every Day Cigarettes 1 15.7 Started: 2009 Passive Smoke Exposure: Current Smokeless [...] AM EDT Shown, Cris Espinal RN * [place] Suicide Severity Rating Scale (Screener/Recent Self-Report) Question Answer Date of Assessment Author 6. Suicidal Behavior (Lifetime) No 10:30 AM EDT Shown, Cris Espinal RN documented as of this encounter Discharge Instructions * Attachments The following attachments cannot be sent through Care Everywhere. * Radial Site Care (Thai) * Moderate Conscious Sedation Adult Care After (Thai) * Coronary Angiogram (Thai) documented in this encounter Medications at Time [...] (Reports having an abnormal stress test at [facility]. Referred here for cardiology consult. /[place]:4/Neck Size: 16 ), Chest Pain (Patient states [...] to pap therapy. Sleep study done at [facility] in 2022.) History of Present Illness The [...] minimal ST depression. HR 63. 04/07/2023 HST [place] Scale is (out of 24): Total score: [...] Necessary Per Protocol; Future - Case Request Process Control Specialist: Cardiac Catheterization/Vascular Study 2. Abnormal stress test - Case Request Process Control Specialist: Cardiac Catheterization/Vascular Study 3. ALFREDO (obstructive sleep apnea) 4. Bilateral leg edema 5. Family history of premature CAD - Case Request Process Control Specialist: Cardiac Catheterization/Vascular Study Other orders - nitroglycerin [...] heart catheterization, including the need for a double bottom driver. Recommendations: ER if symptoms increase and Report if any new/changing symptoms immediately Follow Up Return for After LHC and echo. Patient or patient containers sales representative verbalized consent for the use of [...] 1:08 PM EDTAssociated Order(s): IP CONSULT TO DECALER Diabetes Education Patient Name: Maureen Delong Date [...] documented in this encounter Plan of Treatment Upcoming Encounters Date Type Department Care Team (Late st Contact Info) Description 05/30/2025 12:30 PM EDT Office Visit [facility] [address] [place] [address] Dolores Dhillon APRN [address] [place] [address] Scheduled Referrals Name Type Priority Associated Diagnoses [...] LEFT HEART CATH (03/30/2025 11:38 AM EDT) Pathologist [facility] Cath EF Estimated 80 % Anatomical Region Laterality Modality X-Ray Angiograph y Narrative 03/30/2025 11:47 AM EDT Angiographically normal coronary arteries Hyperdynamic LVEF, greater than 75%. Procedure Narrative Left heart catheterization, ventriculography and coronary arteriography performed via the right radial artery using standard 6 Colombian catheters. No complications. Hemostasis using a radial [...] * POC Creatinine (03/30/2025 10:26 AM EDT) [facility] Creatinine 0.90 0.60 - 1.30 mg/dL 03/30/2025 10:45 AM EDT [facility] Comment:Serial Number: [id number]: [id number] Blood 03/30/2025 10:2 6 AM EDT 03/30/2025 10:45 AM EDT Shay Cain MD POINT OF CARE TEST ORDERABLES Final Result [facility]
[address] [place] [address], [place] [phone] * (ABNORMAL) Hemoglobin A1c (03/30/2025 10:17 AM EDT) Hemoglobin A1C 5.80(H) 4.80 - 5.60 % 03/30/2025 11:47 AM EDT [facility] Blood Line / Unknown 03/30/2025 10 :17 AM EDT 03/30/2025 10:29 AM EDT [facility] - 03/30/2025 11:47 AM EDT Hemoglobin A1C Ranges: Increased Risk for Diabetes 5.7% to 6.4% Diabetes >= 6.5% Diabetic Goal < 7.0% Krystal Soto APRN LAB BLOOD ORDERABLES Final Result [facility]
[address] [place] [address], * (ABNORMAL) Lipid Panel (03/30/2025 10:17 AM EDT) Total Cholesterol 254(H) 0 - 200 mg/dL 03/30/2025 11:00 AM EDT [facility] Triglycerides 151(H) 0 - 150 mg/dL 03/30/2025 11:00 AM EDT [facility] HDL Cholesterol 57 40 - 60 mg/dL 03/30/2025 11:00 AM EDT [facility] LDL Cholesterol 170(H) 0 - 100 mg/dL 03/30/2025 11:00 AM EDT [facility] VLDL Cholesterol 27 5 - 40 mg/dL 03/30/2025 11:00 AM EDT [facility] LDL/HDL Ratio 2.93 03/30/2025 11:00 AM EDT [facility] Blood Line / Unknown 03/30/2025 10 :17 AM EDT 03/30/2025 10:29 AM EDT [facility] - 03/30/2025 11:00 AM EDT [...] Soto APRN LAB BLOOD ORDERABLES Final Result [facility]
[address] [place] [address], * Comprehensive Metabolic Panel (03/30/2025 10:17 AM EDT) Glucose 93 65 - 99 mg/dL 03/30/2025 11:00 AM EDT [facility] BUN 9.6 8.0 - 23.0 mg/dL 03/30/2025 11:00 AM EDT [facility] Creatinine 0.78 0.57 - 1.00 mg/dL 03/30/2025 11:00 AM EDT [facility] Sodium 143 136 - 145 mmol/L 03/30/2025 11:00 AM EDT [facility] Potassium 4.6 3.5 - 5.2 mmol/L 03/30/2025 11:00 AM EDT [facility] Chloride 106 98 - 107 mmol/L 03/30/2025 11:00 AM EDT [facility] CO2 26.9 22.0 - 29.0 mmol/L 03/30/2025 11:00 AM [facility] Calcium 9.3 8.6 - 10.5 mg/dL 03/30/2025 11:00 AM [facility] Total Protein 6.6 6.0 - 8.5 g/dL 03/30/2025 11:00 AM [facility] Albumin 4.4 3.5 - 5.2 g/dL 03/30/2025 11:00 AM [facility] ALT (SGPT) 14 1 - 33 U/L 03/30/2025 11:00 AM [facility] AST (SGOT) 16 1 - 32 U/L 03/30/2025 11:00 AM [facility] Alkaline Phosphatase 77 39 - 117 U/L 03/30/2025 11:00 AM [facility] Total Bilirubin 0.3 0.0 - 1.2 mg/dL 03/30/2025 11:00 AM [facility] Globulin 2.2 gm/dL 03/30/2025 11:00 AM [facility] Comment:Calculated Result A/G Ratio 2.0 g/dL 03/30/2025 11:00 AM [facility] BUN/Creatinine Ratio 12.3 7.0 - 25.0 03/30/2025 11:00 AM [facility] Anion Gap 10.1 5.0 - 15.0 mmol/L 03/30/2025 11:00 AM [facility] eGFR 87.1 >60.0 mL/min/1.7 3 03/30/2025 11:00 AM [facility] Blood Line / Unknown 03/30/2025 10 :17 AM EDT 03/30/2025 10:29 AM [facility] - 03/30/2025 11:00 AM EDT [...] Soto APRN LAB BLOOD ORDERABLES Final Result [facility]
[address] [place] [address], * CBC (No Diff) (03/30/2025 10:17 AM EDT) WBC 6.53 3.40 - 10.80 10*3/mm3 03/30/2025 10:33 AM EDT [facility] RBC 5.00 3.77 - 5.28 10*6/mm3 03/30/2025 10:33 AM EDT [facility] Hemoglobin 14.9 12.0 - 15.9 g/dL 03/30/2025 10:33 AM EDT [facility] Hematocrit 45.7 34.0 - 46.6 % 03/30/2025 10:33 AM EDT [facility] MCV 91.4 79.0 - 97.0 fL 03/30/2025 10:33 AM EDT [facility] MCH 29.8 26.6 - 33.0 pg 03/30/2025 10:33 AM EDT [facility] MCHC 32.6 31.5 - 35.7 g/dL 03/30/2025 10:33 AM EDT [facility] RDW 12.7 12.3 - 15.4 % 03/30/2025 10:33 AM EDT [facility] RDW-SD 42.6 37.0 - 54.0 fl 03/30/2025 10:33 AM EDT [facility] MPV 9.8 6.0 - 12.0 fL 03/30/2025 10:33 AM EDT [facility] Platelets 250 140 - 450 10*3/mm3 03/30/2025 10:33 AM EDT [facility] Blood Line / Unknown 03/30/2025 10 :17 AM EDT 03/30/2025 10:29 AM EDT Krystal Soto APRN LAB BLOOD ORDERABLES Final Result [facility]
[address] [place] [address], documented in this encounter Visit Diagnoses Diagnosis [...] med 325 mg, Oral, Once, On Linda 03/30/25 [...] 5-8 documented in this encounter Care Teams Hair Dryer Relationship Specialty Start Date End Date Zeb Rivero MD [address] [facility] [address] [facility] [place] [address] PCP - General Adolescent Medicine 03/14/25 documented as of this encounter
--- OUTSIDE RECORDS SUMMARY | 2025-03-30 12:00 | XMS_ITS | Encounter Summary ---
Author Organization [facility] y[facility] Address [address] [place] [address] Care Team Providers Care Sales Lead Name Role Phone Zeb Rivero MD Primary Care Provider [phone] Reason for Visit * Auth/Cert Specialty Diagnoses / Procedures Referred By Contac t Referred To Contact Diagnoses Chest pain, atypical Abnormal stress test Family history of premature CAD Procedures IN CATH PLMT L HRT & ARTS W/NJX & ANGIO IMG S&I Left Heart Cath Referral ID Status Reason Start Date Expiration Date Visits Re quested Visits Authorized [id number] 1 1 Encounter Details Date Type Department Care Team (Late st Contact Info) Description 03/30/2025 12:00 PM EDT - 03/30/2025 1:00 PM EDT Surgery [facility] PHYSICIAN [address] [place] [id number] Shay Cain MD [address] [facility] [address] [place] [address] Left Heart Cath [76144 (CPT )] Social History Tobacco Use Types Packs/Day Years [...] Sign Reading Time Taken Comments Blood Pressure 102/55 03/30/2025 1:00 PM EDT Pulse 62 03/30/2025 1:00 PM EDT Temperature 36.1 C (97 F) 03/30/2025 10:15 AM EDT Respiratory Rate 16 03/30/2025 11:40 AM EDT Oxygen Saturation 98% 03/30/2025 1:00 PM EDT Inhaled Oxygen Concentration - - [...] AM EDT Shown, Cris Espinal RN * [place] Suicide Severity Rating Scale (Screener/Recent Self-Report) Question Answer Date of Assessment Author 6. Suicidal Behavior (Lifetime) No 10:30 AM EDT Shown, Cris Espinal RN documented as of this encounter Discharge Instructions * Attachments The following attachments cannot be sent through Care Everywhere. * Radial Site Care (Rwandan) * Moderate Conscious Sedation Adult Care After (Rwandan) * Coronary Angiogram (Rwandan) documented in this encounter Medications at Time [...] (Reports having an abnormal stress test at [facility]. Referred here for cardiology consult. /[place]:4/Neck Size: 16 ), Chest Pain (Patient states [...] to pap therapy. Sleep study done at [facility] in 2022.) History of Present Illness [...] minimal ST depression. HR 63. 04/07/2023 HST [place] Scale is (out of 24): Total score: [...] Necessary Per Protocol; Future - Case Request Dough Cutter: Cardiac Catheterization/Vascular Study 2. Abnormal stress test - Case Request Dough Cutter: Cardiac Catheterization/Vascular Study 3. ALFREDO (obstructive sleep apnea) 4. Bilateral leg edema 5. Family history of premature CAD - Case Request Dough Cutter: Cardiac Catheterization/Vascular Study Other orders - nitroglycerin [...] stress test: - Discussed CCTA VS updating [facility] - Schedule left heart catheterization. - Echocardiogram. [...] heart catheterization, including the need for a bus driver. Recommendations: ER if symptoms increase and Report if any new/changing symptoms immediately Follow Up Return for After LHC and echo. Patient or patient sales representative door to door verbalized consent for the use of Ambient [...] 1:08 PM EDTAssociated Order(s): IP CONSULT TO PARTITION ASSEMBLER Diabetes Education Patient Name: Maureen Delong Date [...] Visit [facility] [address] [place] [address] Dolores Dhillon APRN [address] [place] [address] Scheduled Referrals Name Type Priority [...] LEFT HEART CATH (03/30/2025 11:38 AM EDT) [facility] Cath EF Estimated 80 % Anatomical Region Laterality Modality X-Ray Angiograph y Narrative 03/30/2025 11:47 AM EDT Angiographically normal coronary arteries Hyperdynamic LVEF, greater than 75%. Procedure Narrative Left heart catheterization, ventriculography and coronary arteriography performed via the right radial artery using standard 6 Burmese catheters. No complications. Hemostasis using a radial [...] mmHg AO pressures (S/D/M) : 100/56/ Dolores Clarita Alejo LEAD PHARMACY TECHNICIAN CV CARDIAC CATH ORD ERABLES Final Result * POC Creatinine (03/30/2025 10:26 AM EDT) [facility] Creatinine 0.90 0.60 - 1.30 mg/dL 03/30/2025 10:45 AM EDT [facility] Comment:Serial Number: [id number] 9Operator: [id number] Blood 03/30/2025 10:2 6 AM EDT 03/30/2025 10:45 AM EDT Shay Cain MD POINT OF CARE TEST ORDERABLES Final Result Performing Organization Address [facility]/ZIP Co de Phone Number [facility]
[address] [place] [address], * (ABNORMAL) Hemoglobin A1c (03/30/2025 10:17 AM EDT) Hemoglobin A1C 5.80(H) 4.80 - 5.60 % 03/30/2025 11:47 AM EDT [facility] Blood Line / Unknown 03/30/2025 10 :17 AM EDT 03/30/2025 10:29 AM EDT Narrative [facility] - 03/30/2025 11:47 AM EDT Hemoglobin A1C Ranges: Increased Risk for Diabetes 5.7% to 6.4% Diabetes >= 6.5% Diabetic Goal < 7.0% Krystal Soto APRN LAB BLOOD ORDERABLES Final Result Performing Organization Address City/[facility]/ZIP Co de Phone Number [facility]
[address] [place] [address], * (ABNORMAL) Lipid Panel (03/30/2025 10:17 AM EDT) Total Cholesterol 254(H) 0 - 200 mg/dL 03/30/2025 11:00 AM EDT [facility] Triglycerides 151(H) 0 - 150 mg/dL 03/30/2025 11:00 AM EDT [facility] HDL Cholesterol 57 40 - 60 mg/dL 03/30/2025 11:00 AM EDT [facility] LDL Cholesterol 170(H) 0 - 100 mg/dL 03/30/2025 11:00 AM EDT [facility] VLDL Cholesterol 27 5 - 40 mg/dL 03/30/2025 11:00 AM EDT [facility] LDL/HDL Ratio 2.93 03/30/2025 11:00 AM EDT [facility] Blood Line / Unknown 03/30/2025 10 :17 AM EDT 03/30/2025 10:29 AM EDT Narrative [facility] - 03/30/2025 11:00 AM EDT Cholesterol [...] Soto APRN LAB BLOOD ORDERABLES Final Result [facility]
[address] [place] [address], * Comprehensive Metabolic Panel (03/30/2025 10:17 AM EDT) Glucose 93 65 - 99 mg/dL 03/30/2025 11:00 AM EDT [facility] BUN 9.6 8.0 - 23.0 mg/dL 03/30/2025 11:00 AM EDT [facility] Creatinine 0.78 0.57 - 1.00 mg/dL 03/30/2025 11:00 AM [facility] Sodium 143 136 - 145 mmol/L 03/30/2025 11:00 AM [facility] Potassium 4.6 3.5 - 5.2 mmol/L 03/30/2025 11:00 AM [facility] Chloride 106 98 - 107 mmol/L 03/30/2025 11:00 AM [facility] CO2 26.9 22.0 - 29.0 mmol/L 03/30/2025 11:00 AM [facility] Calcium 9.3 8.6 - 10.5 mg/dL 03/30/2025 11:00 AM [facility] Total Protein 6.6 6.0 - 8.5 g/dL 03/30/2025 11:00 AM [facility] Albumin 4.4 3.5 - 5.2 g/dL 03/30/2025 11:00 AM [facility] ALT (SGPT) 14 1 - 33 U/L 03/30/2025 11:00 AM [facility] AST (SGOT) 16 1 - 32 U/L 03/30/2025 11:00 AM [facility] Alkaline Phosphatase 77 39 - 117 U/L 03/30/2025 11:00 AM [facility] Total Bilirubin 0.3 0.0 - 1.2 mg/dL 03/30/2025 11:00 AM [facility] Globulin 2.2 gm/dL 03/30/2025 11:00 AM [facility] Comment:Calculated Result A/G Ratio 2.0 g/dL 03/30/2025 11:00 AM [facility] BUN/Creatinine Ratio 12.3 7.0 - 25.0 03/30/2025 11:00 AM [facility] Anion Gap 10.1 5.0 - 15.0 mmol/L 03/30/2025 11:00 AM [facility] eGFR 87.1 >60.0 mL/min/1.7 3 03/30/2025 11:00 AM EDT [facility] Blood Line / Unknown 03/30/2025 10 :17 AM EDT 03/30/2025 10:29 AM EDT [facility] - 03/30/2025 11:00 AM EDT GFR [...] Soto APRN LAB BLOOD ORDERABLES Final Result [facility]
[address] [place] [address], * CBC (No Diff) (03/30/2025 10:17 AM EDT) WBC 6.53 3.40 - 10.80 10*3/mm3 03/30/2025 10:33 AM EDT [facility] RBC 5.00 3.77 - 5.28 10*6/mm3 03/30/2025 10:33 AM EDT [facility] Hemoglobin 14.9 12.0 - 15.9 g/dL 03/30/2025 10:33 AM EDT [facility] Hematocrit 45.7 34.0 - 46.6 % 03/30/2025 10:33 AM EDT [facility] MCV 91.4 79.0 - 97.0 fL 03/30/2025 10:33 AM EDT [facility] MCH 29.8 26.6 - 33.0 pg 03/30/2025 10:33 AM EDT [facility] MCHC 32.6 31.5 - 35.7 g/dL 03/30/2025 10:33 AM EDT [facility] RDW 12.7 12.3 - 15.4 % 03/30/2025 10:33 AM EDT [facility] RDW-SD 42.6 37.0 - 54.0 fl 03/30/2025 10:33 AM EDT [facility] MPV 9.8 6.0 - 12.0 fL 03/30/2025 10:33 AM EDT [facility] Platelets 250 140 - 450 10*3/mm3 03/30/2025 10:33 AM EDT [facility] Blood Line / Unknown 03/30/2025 10 :17 AM EDT 03/30/2025 10:29 AM EDT Krystal Soto APRN LAB BLOOD ORDERABLES Final Result Performing Organization Address City/State/[facility] Co de Phone Number [facility]
[address] [place] [address], documented in this encounter Visit Diagnoses Diagnosis [...] Given 03/30/2025 10:35 AM EDT 325 mg fentaNYL citrate (PF) (SUBLIMAZE) injection Code / Trauma / Sedation Medication, Starting on Linda 03/30/25 at 1124 Given 03/30/2025 11:24 AM EDT 50 mcg heparin (porcine) injection Code / Trauma / Sedation Medication, Starting on Linda 03/30/25 at 1132 Given 03/30/2025 11:32 AM EDT 5,000 Units iopamidol (ISOVUE-370) 76 % injection Code / Trauma / Sedation Medication, Starting on Linda 03/30/25 at 1138 Given 03/30/2025 11:38 AM EDT 50 mL lidocaine PF 1% (XYLOCAINE) injection Code / Trauma / Sedation Medication, Starting on Linda 03/30/25 at 1128 Given 03/30/2025 11:28 AM EDT 5 mL Wrist Right midazolam (VERSED) injection Code / Trauma / Sedation Medication, Starting on Linda 03/30/25 at 1124 Given 03/30/2025 11:24 AM EDT 2 mg niCARdipine (CARDENE) syringe Code / Trauma / Sedation Medication, Starting on Linda 03/30/25 at 1132 Given 03/30/2025 11:32 AM EDT 200 mcg nitroglycerin 100 mcg/mL in D5W syringe Code / Trauma / Sedation Medication, Starting on Linda 03/30/25 at 1132 Given 03/30/2025 11:32 AM EDT 200 mcg documented in this encounter Active and Recently [...] 5-8 documented in this encounter Care Teams Sales Lead Relationship Specialty Start Date End Date Zeb Rivero MD [address] [facility] [address] [facility] [place] [address] PCP - General Adolescent Medicine 03/14/25 documented as of this encounter
--- OUTSIDE RECORDS SUMMARY | 2025-04-12 10:00 | XMS_ITS | Encounter Summary ---
Author Organization [facility] Address [address] [place] [address] Care Team Providers Care Field Operations Technician Name Role Phone Zeb Rivero MD Primary Care Provider [phone] Reason for Visit * Reason Comments [facility] FOLLOW UP Pt states no stents were placed. She reports having nagging pains in her chest from time to time. Encounter Details Date Type Department Care Team (Late st Contact Info) Description 04/12/2025 10:00 AM EDT Office Visit [facility] CARDIOLOGY [address] [place] [address] Dolores Dhillon APRN [address] [place] [address] Chest pain, atypical (Primary Dx); [...] found Sleep and/or Cardiology Consulting Provider Note ..[facility] FOLLOW UP (Pt states no stents [...] Assessment & Plan 1. Chest pain: -03/2025 [facility] without intervention -STRONG family history of [...] after echo/CP. 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 Chest pain: -03/2025 [facility] without intervention -STRONG family history of [...] after echo/CP. 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
--- OUTSIDE RECORDS SUMMARY | 2025-04-21 10:30 | XMS_ITS | Encounter Summary ---
Author Organization [facility] Address [address] [place] [address] Care Team Providers Care Organic Lab Worker Name Role Phone Zeb Rivero MD Primary Care Provider [phone] Reason for Visit * Diagnostic Imaging (Routine) - Closed Specialty Diagnoses / Procedures Referred By Contac t Referred To Contact Diagnoses Chest pain, atypical Procedures Adult Transthoracic Echo Complete W/ Cont if Necessary Per Protocol Dolores Dhillon APRN [address] [place] [address] Phone: tel: fax: [facility] CARDIOLOGY [address] [place] [address] Phone: tel: fax: Referral ID Status Reason Start Date Expiration Date Visits Re quested Visits Authorized [id number] Closed 03/14/2025 06/13/2026 1 1 Encounter Details Date Type Department Care Team (Latest Contact Info) Description 04/21/2025 10:30 AM EDT Ancillary Procedure [facility] CARDIOLOGY [address] [place] [address] [place] [address] Chest pain, atypical Social History Tobacco Use Types Packs/Day Years [...] Sign Reading Time Taken Comments Blood Pressure 126/79 04/21/2025 10:47 AM EDT Pulse - - Temperature - - Respiratory Rate - - Oxygen Saturation - - Inhaled Oxygen Concentration - - Weight 48.1 kg (106 lb) 04/21/2025 10:47 AM EDT Height 149.9 cm (4' 11 ) 04/21/2025 10:47 AM EDT Body Mass Index 21.41 04/21/2025 10:47 AM EDT documented in this encounter Plan of Treatment Upcoming Encounters Date Type Department Care Team (Late st Contact Info) Description 05/30/2025 12:30 PM EDT Office Visit [facility] CARDIOLOGY [address] [place] [address] Dolores Dhillon APRN [address] [place] [address] documented as of this encounter Procedures Procedure Name Priority Date/Time Associated Diagnosis Comments ECHO COMPLETE W/ DOPPLER AND COLOR FLOW Routine 04/21/2025 10:47 AM EDT Chest pain, atypical documented in this encounter Results * ECHO COMPLETE W/ [...] left ventricular wall motion is normal. Dolores Dhlilon DOCTORATE OF CHIROPRACTIC CV ECHO ORDERABLES Final Result documented in this encounter Visit Diagnoses Diagnosis Chest pain, atypical documented in this encounter Care Teams Organic Lab Worker Relationship Specialty Start Date End Date Zeb Rivero MD [address] [place] [facility] [address] [place] [address] PCP - General Adolescent Medicine 03/14/25 documented as of this encounter
--- OUTSIDE RECORDS SUMMARY | 2025-05-28 22:49 | XMS_ITS | Encounter Summary ---
Author Organization [facility] Address [address] [place] [address] Care Team Providers Care Jr. Systems Administrator Name Role Phone Zeb Rivero MD Primary Care Provider [phone] Encounter Details Date Type Department Care Team [...] as of this encounter Plan of Treatment Upcoming Encounters Date Type Department Care Team (Late st Contact Info) Description 05/30/2025 12:30 PM EDT Office Visit [facility] [address] [place] [address] Dolores Dhillon APRN [address] [place] [address] documented as of this encounter Visit Diagnoses Not on filedocumented in this encounter Care Teams Jr. Systems Administrator Relationship Specialty Start Date End Date Zeb Rivero MD [address] [place] [address] PCP - General Adolescent Medicine 03/14/25 documented as of this encounter
--- OUTSIDE RECORDS SUMMARY | 2025-05-28 22:49 | XMS_ITS | Encounter Summary ---
Author Organization [facility] Address [address] [place] [address] Care Team Providers Care Yarn Weight And Strength Tester Name Role Phone Zeb Rivero MD Primary Care Provider [phone] Encounter Details Date Type Department Care Team [...] AM EDT Shown, Cris Espinal RN * [place] Suicide Severity Rating Scale (Screener/Recent Self-Report) Question Answer Date of Assessment Author 6. Suicidal Behavior (Lifetime) No 10:30 AM EDT Shown, Cris Espinal RN documented as of this encounter Plan of Treatment Upcoming Encounters Date Type Department Care Team (Late st Contact Info) Description 05/30/2025 12:30 PM EDT Office Visit [facility] [address] [place] [address] Dolores Dhillon APRN [address] [place] [address] documented as of this encounter Visit Diagnoses Not on filedocumented in this encounter Care Teams Yarn Weight And Strength Tester Relationship Specialty Start Date End Date Zeb Rivero MD [address] [place] [facility] [address] [place] [address] PCP - General Adolescent Medicine 03/14/25 documented as of this encounter
--- OUTSIDE RECORDS SUMMARY | 2025-05-28 22:49 | XMS_ITS | Clinical Summary ---
Author Organization [facility] Address [address] [place] [address] Care Team Providers Care Applications Engineer Name Role Phone Zeb Rivero MD Primary Care Provider [phone] Allergies No known active allergies Medications pantoprazole (PROTONIX) 40 MG EC tablet Take 1 tablet by mouth Daily. 02/07/2025 Active acetaminophen (TYLENOL) 325 MG tablet Take 2 tablets by mouth Every 6 (Six) Hours As Needed for Mild Pain. Active aspirin 81 MG EC tablet Take 1 tablet by mouth Daily. Active nitroglycerin (NITROSTAT) 0.4 MG SL tablet 1 under the tongue as needed for angina, may repeat q5mins for up three doses 100 tablet 11 03/15/2025 Active propranolol (INDERAL) 10 MG tablet Take 1/2 (one-half) tablet by mouth twice daily 45 tablet 04/24/2025 Active Active Problems Problem Noted Date Diagnosed Date Arm edema 04/12/2025 Chest pain, atypical 03/14/2025 Abnormal stress test 03/14/2025 ALFREDO (obstructive sleep apnea) 03/14/2025 Tobacco abuse 03/14/2025 Bilateral leg edema 03/14/2025 Family history of premature CAD 03/14/2025 Gastritis Migraines Vitamin B12 deficiency Encounters Date Type Department Care Team Description 04/23/2025 Refill [facility] [address] [place] [place] [phone] Dolores Dhillon APRN Med Refill 04/21/2025 10:30 AM EDT Ancillary Procedure [facility] [address] [place] [place] [address] Chest pain, atypical 04/21/2025 Travel 04/12/2025 10:00 AM EDT Office Visit [facility] [address] [place] [phone] Dolores Dhillon APRN Chest pain, atypical (Primary Dx); Arm edema 04/12/2025 Travel 03/30/2025 12:00 PM EDT - 03/30/2025 1:00 PM EDT Surgery [facility] [address] [place] [address] Shay Cain MD Left Heart Cath [44228 (CPT )] 03/30/2025 10:05 AM EDT - 03/30/2025 3:16 PM EDT Hospital Encounter [facility] [address] [place] [address] Shay Cain MD Vitamin B12 deficiency (Primary Dx); Chest pain, atypical; Abnormal stress test; Family history of premature CAD Discharge Disposition: Home or Self Care 03/30/2025 Travel 03/21/2025 Telephone [facility] [address] [place] [address] Dolores Dhillon APRN 03/14/2025 2:00 PM EDT Office Visit [facility] [address] [place] [address] Dolores Dhillon APRN Chest pain, atypical; Abnormal stress test; ALFREDO (obstructive sleep apnea); Bilateral leg edema; Family history of premature CAD 03/14/2025 Travel 03/14/2025 Telephone [facility] [address] [place] [address] Dolores Dhillon APRN from Last 3 Months [...] 04/21/2025 10:47 AM EDT Plan of Treatment Upcoming Encounters Date Type Department Care Team (Late st Contact Info) Description 05/30/2025 12:30 PM EDT Office Visit [facility] [address] [place] [address] Dolores Dhillon, GOOD [address] [place] [address] Health Maintenance Due Date Last Done Comments [...] (NO DIFF) STAT 03/30/2025 10:17 AM EDT from Last 3 Months Results * ECHO [...] found Sleep and/or Cardiology Consulting Provider Note ..[facility] FOLLOW UP (Pt states no stents were [...] Caregiver The 10-year ASCVD risk score (See DK, et al., 2019) is: 6.5% Values used [...] Smoker Edema on occasion Asymptomatic Bradycardia 03/30/25 [facility] Angiographically normal coronary arteries Hyperdynamic LVEF, greater [...] no clubbing. Comments: Mild edema RFA at [facility] insertion site Neurological: Mental Status: She is [...] Assessment & Plan 1. Chest pain: -03/2025 [facility] without intervention -STRONG family history of premature [...] Return for after echo/CP. Patient or patient retail field representative verbalized consent for the use ofAmbient [...] the right radial artery using standard 6 Occitan catheters. No complications. Hemostasis using a radial [...] - 1.30 mg/dL 03/30/2025 10:45 AM EDT [facility] Comment:Serial Number: [id number] 9Operator: [id number] Blood 03/30/2025 10:2 6 AM EDT 03/30/2025 10:45 AM EDT Shay Cain MD POINT OF CARE TEST ORDERABLES Final Result [facility]
[address] [place] [address], * CBC (No Diff) (03/30/2025 10:17 AM EDT) WBC 6.53 3.40 - 10.80 10*3/mm3 03/30/2025 10:33 AM EDT [facility] RBC 5.00 3.77 - 5.28 10*6/mm3 03/30/2025 10:33 AM EDT [facility] Hemoglobin 14.9 12.0 - 15.9 g/dL 03/30/2025 10:33 AM EDT [facility] Hematocrit 45.7 34.0 - 46.6 % 03/30/2025 10:33 AM EDT [facility] MCV 91.4 79.0 - 97.0 fL 03/30/2025 10:33 AM EDT [facility] MCH 29.8 26.6 - 33.0 pg 03/30/2025 10:33 AM EDT [facility] MCHC 32.6 31.5 - 35.7 g/dL 03/30/2025 10:33 AM EDT [facility] RDW 12.7 12.3 - 15.4 % 03/30/2025 10:33 AM EDT [facility] RDW-SD 42.6 37.0 - 54.0 fl 03/30/2025 10:33 AM EDT [facility] MPV 9.8 6.0 - 12.0 fL 03/30/2025 10:33 AM EDT [facility] Platelets 250 140 - 450 10*3/mm3 03/30/2025 10:33 AM EDT [facility] Blood Line / Unknown 03/30/2025 10 :17 AM EDT 03/30/2025 10:29 AM EDT Krystal Soto APRN LAB BLOOD ORDERABLES Final Result Performing Organization Address [facility] Co de Phone Number [facility]
[address] [place] [address], * (ABNORMAL) Hemoglobin A1c (03/30/2025 10:17 AM EDT) Hemoglobin A1C 5.80(H) 4.80 - 5.60 % 03/30/2025 11:47 AM EDT [facility] Blood Line / Unknown 03/30/2025 10 :17 AM EDT 03/30/2025 10:29 AM EDT Narrative [facility] - 03/30/2025 11:47 AM EDT Hemoglobin A1C Ranges: Increased Risk for Diabetes 5.7% to 6.4% Diabetes >= 6.5% Diabetic Goal < 7.0% Krystal Sparrower ACTUARIAL MANAGER LAB BLOOD ORDERABLES Final Result Performing Organization Address City/[facility]/ZIP Co de Phone Number [facility]
[address] [place] [address], * (ABNORMAL) Lipid Panel (03/30/2025 10:17 AM EDT) Total Cholesterol 254(H) 0 - 200 mg/dL 03/30/2025 11:00 AM EDT [facility] Triglycerides 151(H) 0 - 150 mg/dL 03/30/2025 11:00 AM EDT [facility] HDL Cholesterol 57 40 - 60 mg/dL 03/30/2025 11:00 AM EDT [facility] LDL Cholesterol 170(H) 0 - 100 mg/dL 03/30/2025 11:00 AM EDT [facility] VLDL Cholesterol 27 5 - 40 mg/dL 03/30/2025 11:00 AM EDT [facility] LDL/HDL Ratio 2.93 03/30/2025 11:00 AM EDT [facility] Blood Line / Unknown 03/30/2025 10 :17 AM EDT 03/30/2025 10:29 AM EDT Narrative [facility] - 03/30/2025 11:00 AM EDT [...] Soto APRN LAB BLOOD ORDERABLES Final Result [facility]
[address] [place] [address], * Comprehensive Metabolic Panel (03/30/2025 10:17 AM EDT) Glucose 93 65 - 99 mg/dL 03/30/2025 11:00 AM EDT [facility] BUN 9.6 8.0 - 23.0 mg/dL 03/30/2025 11:00 AM [facility] Creatinine 0.78 0.57 - 1.00 mg/dL 03/30/2025 11:00 AM [facility] Sodium 143 136 - 145 mmol/L 03/30/2025 11:00 AM [facility] Potassium 4.6 3.5 - 5.2 mmol/L 03/30/2025 11:00 AM [facility] Chloride 106 98 - 107 mmol/L 03/30/2025 11:00 AM [facility] CO2 26.9 22.0 - 29.0 mmol/L 03/30/2025 11:00 AM [facility] Calcium 9.3 8.6 - 10.5 mg/dL 03/30/2025 11:00 AM [facility] Total Protein 6.6 6.0 - 8.5 g/dL 03/30/2025 11:00 AM [facility] Albumin 4.4 3.5 - 5.2 g/dL 03/30/2025 11:00 AM [facility] ALT (SGPT) 14 1 - 33 U/L 03/30/2025 11:00 AM [facility] AST (SGOT) 16 1 - 32 U/L 03/30/2025 11:00 AM [facility] Alkaline Phosphatase 77 39 - 117 U/L 03/30/2025 11:00 AM [facility] Total Bilirubin 0.3 0.0 - 1.2 mg/dL 03/30/2025 11:00 AM [facility] Globulin 2.2 gm/dL 03/30/2025 11:00 AM [facility] Comment:Calculated Result A/G Ratio 2.0 g/dL 03/30/2025 11:00 AM [facility] BUN/Creatinine Ratio 12.3 7.0 - 25.0 03/30/2025 11:00 AM [facility] Anion Gap 10.1 5.0 - 15.0 mmol/L 03/30/2025 11:00 AM EDT [facility] eGFR 87.1 >60.0 mL/min/1.7 3 03/30/2025 11:00 AM EDT [facility] Blood Line / Unknown 03/30/2025 10 :17 AM EDT 03/30/2025 10:29 AM EDT Narrative [facility] - 03/30/2025 11:00 AM EDT GFR [...] Soto APRN LAB BLOOD ORDERABLES Final Result [facility]
[address] [place] [address], from Last 3 Months Insurance [facility] [employer] Yet [facility] Care Teams Applications Engineer Relationship Specialty Start Date End Date Zeb Rivero MD [facility] [address] [facility] [address] [place] [address] PCP - General Adolescent Medicine 03/14/25
--- OUTSIDE RECORDS SUMMARY | 2025-05-28 22:49 | XMS_ITS | Encounter Summary ---
Author Organization [facility] Address [address] [place] [address] Care Team Providers Care Surgery Specialist Name Role Phone Zeb Rivero MD Primary Care Provider [phone] Encounter Details Date Type Department Care Team [...] Description 05/30/2025 12:30 PM EDT Office Visit [facility] [address] [place] [address] Dolores Dhillon APRN [address] [place] [address] documented as of this encounter Visit Diagnoses Not on filedocumented in this encounter Care Teams Surgery Specialist Relationship Specialty Start Date End Date Zeb Rivero MD [address] [place] [place] [address] PCP - General Adolescent Medicine 03/14/25 documented as of this encounter
--- OUTSIDE RECORDS SUMMARY | 2025-05-28 22:49 | XMS_ITS | Encounter Summary ---
Author Organization [facility] Address [address] [place] [address] Care Team Providers Care Hasher Operator Name Role Phone Zeb Rivero MD Primary Care Provider [phone] Reason for Visit * Reason Comments Med Refill Encounter Details Date Type Department Care Team (Late st Contact Info) Description 04/23/2025 Refill [facility] [address] [place] [address] Dolores Dhillon APRN [address] [place] [address] Med Refill Social History Tobacco [...] Description 05/30/2025 12:30 PM EDT Office Visit [facility] [address] [place] [address] Dolores Dhillon APRN [address] [place] [address] documented as of this encounter Visit Diagnoses Not on filedocumented in this encounter Care Teams Hasher Operator Relationship Specialty Start Date End Date Zeb Rivero MD [address] [facility] [address] [place] [address] PCP - General Adolescent Medicine 03/14/25 documented as of this encounter
--- NOTE | 2025-05-28 22:51 | ECG_ITS ---
APPROVED REPORT Exam: Resting ECG HR:52 bpm ECG Measurements Heart Rate 52 AXES QRSd 87 QRS 79 QT 449 T 74 QTc 429 Conclusion SUPRAVENTRICULAR BRADYCARDIA ABNORMAL RHYTHM ECG UNCONFIRMED REPORT Electronically signed by : GILBERTO GUARDADO, 05/29/2025 05:05:49
[2025-05-28 22:55] VITALS: BP 136/62; PULSE 52; RESP 16; TEMP 36.5; O2SAT 100; BMI 21.2
--- NOTE | 2025-05-28 22:57 | HMH.EDGENADL ---
Discharge Plan Disposition Patient Disposition: Home, Self-Care Prescriptions Prescriptions: No Action mecobalamin (vitamin B12) 1,000 mcg tablet,disintegrating 1,000 mcg sublingual DAILY Rx Instructions: place tablet under tongue and allow to dissolve for at least30 secs before swallowing atorvastatin 20 mg tablet 20 mg PO HS albuterol sulfate 90 mcg/actuation HFA aerosol inhaler 2 inh inhalation PRN acetaminophen 500 mg tablet 1,000 mg PO ONCE ibuprofen 400 mg tablet 400 mg PO BID fluticasone propionate 50 mcg/actuation spray,suspension 1 spray intranasal DAILY Rx Instructions: administer into each nostril aspirin [Adult Low Dose Aspirin] 81 mg tablet,delayed release (DR/EC) 81 mg PO DAILY famotidine 20 mg tablet 20 mg PO BID cyproheptadine 4 mg tablet 4 mg PO HS Qty: 30 2RF sodium,potassium,mag sulfates [Suprep Bowel Prep Kit] 17.5-3.13-1.6 gram recon soln See Rx Instructions PO .COMPLEX Qty: 354 0RF Rx Instructions: DILUTE; drink full amount early evening before AND next morning at least 2 hr before procedure; follow w 960 mL water PO pantoprazole [Protonix] 40 mg tablet,delayed release (DR/EC) 40 mg PO DAILY Qty: 30 0RF Referrals Follow up/Referrals: Khadijah Johansen APRN [Primary Care Provider, Medical] - See instructions Activity Restrictions/Add. Instructions Additional Instructions/Restrictions: Please follow-up with your primary care provider. Please return to the emergency department if you develop any new or worsening symptoms or become concerned for your health. Clinical Impressions Clinical Impression: Light headedness Headache Qualifiers: Headache chronicity pattern: acute headache Print Language Print Language: Welsh Discharge ED Provider: Elan Lopez General Adult HPI General Chief complaint: Headache Stated complaint: Low B/P 97/56,HOPKINS,Nausea,neck pain Time Seen by Provider: 05/28/25 22:56 History of Present Illness HPI narrative: 59-year-old female without significant past medical history presents for multiple complaints. She reports that this evening she developed some headache, neck pain, nausea. She also checked her blood pressure at home when it was running low for her, 97/56. She normally runs blood pressure systolic 110. She denies any fevers chills chest pain abdominal pain shortness of breath. She took some Tylenol prior to arrival. She reports that she does get migraines and this feels typical with the exception that she is not as sensitive to light as normal. Related Data Home Medications ?Medication ?Instructions ?Recorded ?Confirmed acetaminophen 500 mg tablet 1,000 mg PO ONCE 05/07/23 07/28/24 albuterol sulfate 90 mcg/actuation 2 inh inhalation PRN 05/07/23 07/28/24 aerosol inhaler aspirin 81 mg tablet,delayed 81 mg PO DAILY 05/07/23 07/28/24 release (Adult Low Dose Aspirin) atorvastatin 20 mg tablet 20 mg PO HS 05/07/23 07/28/24 famotidine 20 mg tablet 20 mg PO BID 05/07/23 07/28/24 fluticasone propionate 50 1 spray intranasal DAILY 05/07/23 07/28/24 mcg/actuation nasal spray,suspension ibuprofen 400 mg tablet 400 mg PO BID 05/07/23 07/28/24 mecobalamin (vitamin B12) 1,000 1,000 mcg sublingual DAILY 05/07/23 07/28/24 mcg disintegrating tablet,sublingual Previous Rx's ?Medication ?Instructions ?Recorded cyproheptadine 4 mg tablet 4 mg PO HS per [place] for chronic 06/22/23 headaches #30 tabs pantoprazole 40 mg tablet,delayed 40 mg PO DAILY #30 tabs 02/06/25 release (Protonix) sodium,potassium,mag sulfates 17.5 See Rx Instructions PO .COMPLEX 05/17/25 gram-3.13 gram-1.6 gram oral soln #354 mL (Suprep Bowel Prep Kit) Allergies Allergy/AdvReac Type Severity Reaction Status Date / Time No Known Allergies Allergy Verified 07/28/24 13:03 [facility] Disclaimer: The information contained in this section may have been updated after the patient was seen, as this information can be updated by other users. Medical History Urinary tract infection Kidney stone Migraine Hyperlipidemia Surgical History History of hysterectomy History of cholecystectomy Family History Other No significant family history Social History (Reviewed 07/28/24 @ 13:04 by FRANSICO Boykin Smoking Status: Current every day smoker tobacco type: cigarettes packs per day: 1 alcohol intake: never substance use type: denies use current occupational status: employed Travel in the last 8 weeks?: None household members: spouse housing: house current occupational exposures/hazards: No caffeine: Yes Have you lived/traveled outside US in past 30 days?: No Contact w/someone who lives/traveled outside US past 30 days?: No Exposure to someone with infectious disease in past 14 days?: No Do you have a fever (greater than 100.4 F or 38 C)?: No Have you tested positive for COVID-19?: No Exposed to someone with COVID-19 in past 14 days?: No Do you have a sore throat?: No Do you have a cough?: No Do you have any weakness?: No Do you have any diarrhea?: No Are you experiencing any unusual bleeding?: No Do you have any muscle aches/pain?: No Do you have any abdominal pain?: No Are you experiencing loss of taste or smell?: No Other Medical History Have you received the Flu Vaccine for this season: No Have you received the Pneumonia Vaccine: No ROS Obtained: Yes All systems reviewed & no additional complaints except as documented Physical Exam General General appearance: alert and in no apparent distress Head Head exam: atraumatic and normocephalic Eye Eye exam: Present normal appearance, PERRL and EOMI ENT ENT exam: Present normal oropharynx and normal external ear exam Neck Neck exam: Present normal inspection and full ROM Chest Chest inspection: Present normal inspection and symmetric chest wall rise; Absent tenderness Respiratory Respiratory exam: Present normal lung sounds bilaterally; Absent respiratory distress Cardiovascular Cardiovascular exam: Present regular rate and normal rhythm Abdominal Exam Abdominal exam: Present soft; Absent distention, tenderness or guarding Extremities Exam Extremities exam: Present normal inspection; Absent edema or joint swelling Back Exam Back exam: Present normal inspection; Absent tenderness Neurological Exam Neurological exam: Present alert and oriented X3; Absent motor sensory deficit Psychiatric Psychiatric exam: Present normal affect and normal mood Skin Skin exam: Present warm, dry and normal color Lymphatic Lymphatic Findings: no adenopathy Medical Decision Making Medical Records Medical records reviewed: Yes I reviewed the patient's medical records. Screening: Per USPSTF and CDC recommendations, given the prevalence of disease in our region, it is our hospital?s policy to screen for HIV and viral Hepatitis for all patients aged 18 and over and those with ongoing risk factors. Romero Inquiry Pt receiving controlled substance: No Romero was queried for this patient: No Vital Signs: 05/28/25 22:55 05/29/25 00:30 05/29/25 00:39 Temperature 97.7 F 98.4 F Temperature Source Oral Oral Pulse Rate 63 63 Pulse Rate [Right] 52 L Respiratory Rate 16 14 14 Blood Pressure 120/59 L 120/59 L Blood Pressure [Right Arm] 136/62 Blood Pressure Mean [Right Arm] 86 02 Sat by Pulse Oximetry 100 97 Oxygen Delivery Method Room Air Room Air Room Air Lab Data Lab results reviewed: Yes I reviewed the patient's lab results. Lab Results 05/28/25 00:10: Urine Color Yellow, Urine Appearance Clear, Urine pH 6.0, Ur Specific Tolono <= 1.005, Urine Protein Negative, Urine Glucose (UA) Negative, Urine Ketones Negative, Urine Blood Trace-i, Urine Nitrate Negative, Urine Bilirubin Negative, Urine Urobilinogen 0.2, Ur Leukocyte Esterase Negative, Urine RBC Occasional, Urine WBC Occasional, Ur Squamous Epith Cells Occasional, Urine Bacteria None 05/28/25 22:50: WBC 9.2, RBC 4.56, Hgb 13.7, Hct 41.1, MCV 90.1, MCH 30.0, MCHC 33.3, RDW 12.7, Plt Count 262, MPV 10.3, Neut % (Auto) 47.2, Lymph % (Auto) 43.1, Humphreys % (Auto) 7.8, Eos % (Auto) 1.5, Baso % (Auto) 0.2, Neut # (Auto) 4.4, Lymph # (Auto) 4.0, Humphreys # (Auto) 0.7, Eos # (Auto) 0.1, Baso # (Auto) 0.0, Sodium 138, Potassium 3.8, Chloride 103, Carbon Dioxide 27, Anion Gap 11.8, BUN 12, Creatinine 1.00, Estimated Creat Clear 45, Estimated GFR 57 L, Est GFR ( Amer) 68, Glucose 124 H, Calcium 10.0, Total Bilirubin 0.6, AST 26, ALT 22, Alkaline Phosphatase 76, Troponin I < 0.01, Total Protein 6.9, Albumin 4.4, Globulin 2.5, Albumin/Globulin Ratio 1.8 05/28/25 22:50 05/28/25 22:50 Orders (Tests/Meds): ED MEDICATIONS Discontinued Medications Generic Name Dose Route Start Last Admin Trade Name Nora PRN Reason Stop Dose Admin Sodium Chloride 1,000 mls @ 999 mls/hr 05/28/25 23:15 05/29/25 00:34 Sod Chlor 0.9% 1000ml Bag IV 05/29/25 00:15 Infused .Q1H1M CHANDNI Infusion Magnesium Sulfate 2 gm in 50 mls @ 150 mls/hr 05/28/25 23:02 05/29/25 00:01 Magnesium Sulfate 2gm/50ml Premix IV 05/28/25 23:21 Infused ONCE ONE Infusion Ketorolac Tromethamine 30 mg 05/28/25 23:02 05/28/25 23:20 Ketorolac 30mg/Ml Vial IV 05/28/25 23:03 30 mg ONCE ONE Administration Prochlorperazine Edisylate 10 mg 05/28/25 23:02 05/28/25 23:20 Prochlorperazine 10mg/2ml Vial IV 05/28/25 23:03 10 mg ONCE ONE Administration ORDERS Category Date Time Status CXR --portable [XR chest portable] Stat Exams 05/28/25 23:03 Completed CBC w/Auto Diff [Complete Blood Count Auto Diff] Stat Lab 05/28/25 22:50 Completed CMP [Comprehensive Metabolic Panel] Stat Lab 05/28/25 22:50 Completed Troponin I Q3H Lab 05/28/25 22:50 Completed Troponin I Q3H Lab 05/29/25 02:15 Ordered UA [Urinalysis and Microscopic] Stat Lab 05/28/25 00:10 Completed ECG Data Tracing #1: I reviewed this ECG and interpreted as documented below: Sinus bradycardia, rate of 52, no ischemic changes ECG initial impression date: 05/28/25 ECG initial impression time: 22:51 HEART Score History (anamnesis): Slightly suspicious ECG: Normal Age: 45-65 years Risk factors: No known risk factors Troponin: </= normal limit HEART Score: 1 Medical Decision Narrative: 59-year-old female with history of migraines presents for headache, neck pain, nausea and a low blood pressure reading at home, symptoms started around 9 PM.. History was obtained via interactive discussion with patient, family, chart review. On arrival, patient is [afebrile, hemodynamically stable, satting appropriately, alert, oriented x4, GCS 15], moving all extremities spontaneously. Full physical exam performed and significant for benign abdominal exam, clear lungs bilaterally, normal neuroexam Differential includes but is not limited to migraine headache, tension headache, UTI, gastroenteritis, arrhythmia, ACS,. Patient was given migraine cocktail for symptomatic management and correction of underlying abnormalities. Workup initiated including basic labs, EKG chest x-ray. On re-evaluation, patient reports significant symptomatic improvement. Blood pressures remain normal and stable. Heart rate remained stable around 60. Laboratory workup independently interpreted by me and significant for urinalysis without evidence of infection, no significant electrolyte derangement or renal dysfunction, no significant leukocytosis, negative troponin. Imaging independently interpreted by me and significant for her lungs bilaterally without focal opacity. See radiology read for full review of final results. Given patient history, exam and workup, patient's presentation most likely represents migraine headache, now improved after migraine cocktail. Patient has not been hypotensive and has no signs or symptoms of infection. Patient discharged in stable condition, return precautions given. Procedures Risk/Benefits of Procedure(s) Were Explained: Yes Critical Care Critical Care Time Critical Care Time: No
--- NOTE | 2025-05-28 23:03 | XR_ITS ---
PROCEDURE INFORMATION: Exam: XR Chest Exam date and time: 05/28/2025 11:12 PM Age: 59 years old Clinical indication: Cough TECHNIQUE: Imaging protocol: Radiologic exam of the chest. Views: 1 view. COMPARISON: CT LUNG SCREENING 05/03/2025 8:59 AM FINDINGS: Lungs: Unremarkable. No consolidation. Pleural spaces: Unremarkable. No pleural effusion. No pneumothorax. Heart/Mediastinum: Unremarkable. No cardiomegaly. Bones/joints: Unremarkable. IMPRESSION: Stable chest x-ray with no acute disease.
[2025-05-28 23:15] LABS: Hematocrit 41.1 % (37.0-47.0); Hemoglobin 13.7 g/dL (12.2-16.2); Immature Granulocytes % 0.2 %; Mean Corpuscular HGB Conc 33.3 g/dL (31.8-35.4); Mean Corpuscular Hemoglobin 30.0 pg (27.0-31.2); Mean Corpuscular Volume 90.1 fl (81-99); Nucleated Red Blood Cells % 0 %; Platelet Count 262 K/mm3 (142-424); Red Blood Count 4.56 M/mm3 (4.20-5.40); Red Cell Distribution Width-SD 41.8 fL; White Blood Count 9.2 K/mm3 (4.8-10.8)
[2025-05-28 23:20] LABS: Albumin Level 4.4 g/dl (3.5-5.0); Chloride 103 mmol/L (98-107)
[2025-05-28] MEDS: PROCHLORPERAZINE 10MG/2ML VIAL 10 MG IV (23:20)
[2025-05-28] MEDS: KETOROLAC 30MG/ML VIAL 30 MG IV (23:20)
[2025-05-28 23:21] LABS: Potassium 3.8 mmoL/L (3.5-5.1); Sodium 138 mmol/L (136-145)
[2025-05-28] MEDS: MAGNESIUM SULFATE IN WATER 2 GM/50 ML PIGGYBACK IV (23:21)
[2025-05-28] MEDS: 0.9 % SODIUM CHLORIDE 1000ML 1,000 ML 999 ML IV (23:21)
[2025-05-28 23:23] LABS: Blood Urea Nitrogen 12 mg/dl (7-17); Creatinine Clearance Estimated 45 mL/min (50-200); Creatinine,Serum 1.00 mg/dl (0.52-1.04); Estimated Glomerular Filt Rate 57 ml/min (>60); GFR (African American) 68 ML/MIN (>60)
[2025-05-28 23:24] LABS: Alanine Aminotransferase 22 U/L (12-78); Albumin/Globulin Ratio 1.8 (1.1-1.8); Alkaline Phosphatase 76 U/L (38-126); Anion Gap 11.8 mEq/L (5-15); Aspartate Amino Transferase 26 U/L (14-36); Bilirubin,Total 0.6 mg/dl (0.2-1.3); Calcium 10.0 mg/dl (8.4-10.2); Carbon Dioxide 27 mmol/L (22.0-30.0); Globulin 2.5 g/dL (1.3-3.2); Glucose 124 mg/dl (74-100); Total Protein,Serum 6.9 g/dl (6.3-8.2)
[2025-05-28 23:43] LABS: Troponin I < 0.01 ng/ml (0.00-0.034)
[2025-05-29 00:14] LABS: Microscopic, Urine URINE MICROSCOPIC (MICROSCOPIC)
[2025-05-29 00:16] LABS: Bilirubin,Urine Negative (Negative); Color,Urine YELLOW (Yellow); Glucose,Urine (UA) Negative (Negative); Ketones,Urine Negative (Negative); Leukocyte Esterase,Urine Negative (Negative); PH,Urine 6.0 (5.0-8.5); Protein,Urine Negative (Negative); Specific Gravity, Urine <= 1.005 (1.005-1.030); Urobilinogen,Urine 0.2 EU/dl (0.2)
[2025-05-29 00:27] LABS: RBC,Urine Occasional #/hpf (0-3); WBC,Urine Occasional #/hpf (0-3)
[2025-05-29 00:28] LABS: Squamous Epithelial Cell,Urine Occasional #/hpf (0-5)
[2025-05-29 00:30] VITALS: BP 120/59; PULSE 63; RESP 14; O2SAT 97
[2025-05-29 00:39] VITALS: BP 120/59; PULSE 63; RESP 14; TEMP 36.9; O2SAT 97
== END 2025-05-29 00:45 | disposition home or self-care (01) ==
PROVIDERS: Emergency Provider Emergency Medicine; PCP Nurse Practitioner Family
DX: R51.9 Headache, unspecified (principal); R00.1 Bradycardia, unspecified; M54.2 Cervicalgia; R42 Dizziness and giddiness; R11.0 Nausea; F17.210 Nicotine dependence, cigarettes, uncomplicated
CPT/HCPCS: 71045; 80053; 81001; 84484; 85025; 93005; 96361; 96365; 96375; 99284; J0780; J1885; J3475; J7030

== ENCOUNTER 2025-05-31 08:15 | Outpatient (CLI) | payer OTHER, SELFPAY ==
--- OUTSIDE RECORDS SUMMARY | 2025-04-12 10:00 | XMS_ITS | Encounter Summary ---
Author Organization [facility] Address [address] [place] [address] Care Team Providers Care Siebel Solution Architect Name Role Phone Zeb Rivero MD Primary Care Provider [phone] Reason for Visit * Reason Comments [facility] FOLLOW UP Pt states no stents were placed. She reports having nagging pains in her chest from time to time. Encounter Details Date Type Department Care Team (Late st Contact Info) Description 04/12/2025 10:00 AM EDT Office Visit [facility] CARDIOLOGY [address] [place] [address] Dolores Dhillon APRN [address] [place] [address] Chest pain, atypical (Primary Dx); [...] no 03/30/2025 Feels Threatened by Someone no 07/0 11/2024 Does Anyone Try to Keep You [...] and/or Cardiology Consulting Provider Note ..[facility] FOLLOW UP (Pt states no stents [...] Plan 1. Chest pain: -03/2025 [facility] without intervention -STRONG family history of [...] Return for after echo/CP. 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 Chest pain: -03/2025 [facility] without intervention -STRONG family history of [...] Return for after echo/CP. 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
--- OUTSIDE RECORDS SUMMARY | 2025-04-21 10:30 | XMS_ITS | Encounter Summary ---
Author Organization [facility] Address [address] [place] [address] Care Team Providers Care Gasoline Locomotive Crane Operator Name Role Phone Zeb Rivero MD Primary Care Provider [phone] Reason for Visit * Diagnostic Imaging (Routine) - Closed Specialty Diagnoses / Procedures Referred By Contac t Referred To Contact Diagnoses Chest pain, atypical Procedures Adult Transthoracic Echo Complete W/ Cont if Necessary Per Protocol Dolores Dhillon APRN [address] [place] [address] Phone: tel: fax: [facility] CARDIOLOGY [address] [place] [address] Phone: tel: fax: Referral ID Status Reason Start Date Expiration Date Visits Re quested Visits Authorized [id number] Closed 03/14/2025 06/13/2026 1 1 Encounter Details Date Type Department Care Team (Latest Contact Info) Description 04/21/2025 10:30 AM EDT Ancillary Procedure [facility] CARDIOLOGY [address] [place] [address] [place] [address] Chest pain, atypical Social History Tobacco [...] Description 08/29/2025 10:30 AM EST Office Visit [facility] CARDIOLOGY [address] [place] [address] Dolores Dhillon APRN [address] [place] [address] documented as of this encounter [...] ventricular wall motion is normal. Dolores Dhillon SENIOR INVESTMENT ANALYST CV ECHO ORDERABLES Final Result documented in this encounter Visit Diagnoses Diagnosis Chest pain, atypical documented in this encounter Care Teams Gasoline Locomotive Crane Operator Relationship Specialty Start Date End Date Zeb Rivero MD [address] [place] [facility] [address] [address] [place] [address] PCP - General Adolescent Medicine 03/14/25 documented as of this encounter
--- OUTSIDE RECORDS SUMMARY | 2025-05-30 12:30 | XMS_ITS | Encounter Summary ---
Author Organization [facility] Address [address] [place] [address] Care Team Providers Care Solar Business Developer Name Role Phone Zeb Rivero MD Primary Care Provider [phone] Reason for Visit * Reason Comments Follow-up Encounter Details Date Type Department Care Team (Latest Contact Info) Description 05/30/2025 12:30 PM EDT Office Visit [facility] [address] [place] [address] Dolores Dhillon APRN [address] [place] [address] Hyperlipidemia LDL goal <100 (Primary Dx); Hospital discharge follow-up; Hypotension due to drugs; Abnormal echocardiogram; Hyperdynamic circulation; Tobacco abuse Social History Tobacco Use Types Packs/Day Years [...] Sign Reading Time Taken Comments Blood Pressure 122/76 05/30/2025 12:37 PM EDT Pulse 60 05/30/2025 12:37 PM EDT Temperature - - Respiratory Rate - - Oxygen Saturation 99% 05/30/2025 12:37 PM EDT Inhaled Oxygen Concentration - - Weight 48.5 kg (107 lb) 05/30/2025 12:37 PM EDT Height 149.9 cm (4' 11 ) 05/30/2025 12:37 PM EDT Body Mass Index 21.61 05/30/2025 12:37 PM EDT documented in this encounter Progress Notes * Dolores Dhillon APRN - 05/30/2025 1:43 PM EDTAssociated Problem(s): Hyperlipidemia LDL goal <100 03/30/2025 labs-A1c 5.8, cholesterol 254, triglycerides 151, HDL 57, LDL 170, creatinine/potassium/sodium normal, LFTs normal, eGFR 87, CBC normal. Was Started on Atorvastatin 40mg nightly. -Will recheck lipids at follow-up * Dolores Dhillon APRN - 05/30/2025 1:40 PM EDTAssociated Problem(s): Hospital discharge follow-up - For hypotension - At [facility] -Waiting on records * Dolores Dhillon APRN - 05/30/2025 1:40 PM EDTAssociated Problem(s): Hypotension due to drugs -Already cutting Propranolol 10mg BID in half -Further decrease to 10mg half only at night - Let us know if hypotension does not resolve * Dolores Dhillon APRN - 05/30/2025 1:38 PM EDTAssociated Problem(s): Tobacco abuse Continues to smoke * Dolores Dhillon APRN - 05/30/2025 1:38 PM EDTAssociated Problem(s): Hyperdynamic circulation -LHC 03/30/25 NCA; EF >75% -04/25/25 Echo EF 66-70% -Drinking fluids. Check LFT's, Thyroid, Iron panel * Dolores Dhillon APRN - 05/30/2025 12:30 PM EDT Images from the original note were not included. Date: 05/30/2025 Name: Maureen Delong : 1965 PCP: Zeb Rivero MD REF: No ref. provider found [facility] Provider Note ..Follow-up History of Present Illness The patient is a female who presents for [facility] ([facility]) visit follow-up. She was evaluated for low blood pressure. We are trying to get results. She has been experiencing low blood pressure, with a reading of 96/55 at home, accompanied by dizziness. She felt faint while sitting at the kitchen table with her granddaughter. Maintains adequate hydration and sips on fluids all day long. She also reports feeling excessively tired, a symptom thathas worsened since her last visit. She mentions that after her recent ER visit, she had difficulty w aking up the following day. She has not noticed any instances of high heart rate as she typically has bradycardia. She reports no difficulty in breathing. Also reviewed recent Echo from 04/25/25 and labs. 03/30/2025 labs-A1c 5.8, cholesterol 254, triglycerides 151, HDL 57, LDL 170, creatinine/potassium/sodium normal, LFTs normal, eGFR 87, CBC normal. Was Started on Atorvastatin 40mg nightly. SOCIAL HISTORY Marital Status: The 10-year ASCVD risk score (See MUÑOZ, et al., 2019) is: 7.4% Values used to calculate the score: Age: 59 years Sex: Female Is Non- : No Diabetic: No Tobacco smoker: Yes Systolic Blood Pressure: 122 mmHg Is BP treated: No HDL Cholesterol: 57 mg/dL Total Cholesterol: 254 mg/dL Chest Pain Abnormal Nuclear Stress Test; [facility] NCA Strong Family HX premature CAD ALFREDO-Intolerant to CPAP Smoker Edema on occasion Asymptomatic Bradycardia Hypotension with propranolol 5mg BID Hyperlipidemia 04/25/2025 Echo: ?? Left ventricular systolic function is normal. Left ventricular ejection fraction appears to be 66 - 70%. ?? Left ventricular diastolic function was normal. Estimated right ventricular systolic pressure from tricuspid regurgitation is normal (<35 mmHg). ?? There is a trivial pericardial effusion adjacent to the right ventricle 03/30/2025 labs-A1c 5.8, cholesterol 254, triglycerides 151, HDL 57, LDL 170, creatinine/potassium/sodium normal, LFTs normal, eGFR 87, CBC normal. Was Started on Atorvastatin 40mg nightly. 03/30/25 [facility] ?? Angiographically normal coronary arteries ?? Hyperdynamic LVEF, greater than 75%. 02/21/2025 Abnormal Nuclear Stress Test 02/06/25 EKG- Sinus Rhythm, minimal ST depression. HR 63. 04/07/2023 HST Medications Discontinued During This Encounter Medication Reason propranolol (INDERAL) 10 MG tablet No Known Allergies Current Outpatient Medications: acetaminophen (TYLENOL) 325 MG tablet, Take 2 tablets by mouth Every 6 (Six) Hours As Needed for Mild Pain., Disp: , Rfl: albuterol sulfate HFA 108 (90 Base) MCG/ACT inhaler, Inhale 2 puffs., Disp: , Rfl: aspirin 81 MG EC tablet, Take 1 tablet by mouth Daily., Disp: , Rfl: atorvastatin (LIPITOR) 40 MG tablet, Take 1 tablet by mouth every night at bedtime., Disp: , Rfl: cyanocobalamin 1000 MCG/ML injection, 1 mL., Disp: , Rfl: nitroglycerin (NITROSTAT) 0.4 MG SL tablet, 1 under the tongue as needed for angina, may repeat q5mins for up three doses, Disp: 100 tablet, Rfl: 11 pantoprazole (PROTONIX) 40 MG EC tablet, Take 1 tablet by mouth Daily., Disp: , Rfl: propranolol (INDERAL) 10 MG tablet, Take 0.5 tablets by mouth Every Night., Disp: 45 tablet, Rfl: 0 Past Medical History: Diagnosis Date Abnormal stress test 03/14/2025 Followed by [facility] with NCA Arm edema 04/12/2025 Chest pain, atypical 03/14/2025 Gastritis Migraines Vitamin B12 deficiency Patient Active Problem List Diagnosis Gastritis Migraines Vitamin B12 deficiency ALFREDO (obstructive sleep apnea) Tobacco abuse Bilateral leg edema Family history of premature CAD H/O percutaneous left heart catheterization Abnormal echocardiogram Hyperdynamic circulation Hypotension due to drugs Hospital discharge follow-up Hyperlipidemia LDL goal <100 Family History Problem Relation Age of Onset [...] packs/day: 1.00 Average packs/day: 1 pack/day for 15.7 years (15.7 ttl pk-yrs) Types: Cigarettes Start date: 2009 Passive exposure: Current Smokeless tobacco: Never Vaping Use Vaping status: Never Used Substance and Sexual Activity Alcohol use: Never Drug use: Never Sexual activity: Defer Vital Signs: BP 122/76 Pulse 60 Ht 149.9 cm (59 ) Wt 48.5 kg (107 lb) SpO2 99% BMI 21.61 kg/m?? Estimated body mass index is 21.61 kg/m?? as calculated from the following: Height as of this encounter: 149.9 cm (59 ). Weight as of this encounter: 48.5 kg (107 lb). Physical Exam Vitals reviewed. Constitutional: Appearance: Normal [...] Thought Content: Thought content normal. Physical Exam Results Imaging - Echocardiogram: High ejection fraction Assessment and Plan Diagnoses and all orders for this visit: 1. Hyperlipidemia LDL goal <100 (Primary) Assessment & Plan: 03/30/2025 labs-A1c 5.8, cholesterol 254, triglycerides 151, HDL 57, LDL 170, creatinine/potassium/sodium normal, LFTs normal, eGFR 87, CBC normal. Was Started on Atorvastatin 40mg nightly. -Will recheck lipids at follow-up 2. Hospital discharge follow-up Assessment & Plan: - For hypotension - At [facility] -Waiting on records 3. Hypotension due to drugs Assessment & Plan: -Already cutting Propranolol 10mg BID in half -Further decrease to 10mg half only at night - Let us know if hypotension does not resolve 4. Abnormal echocardiogram - Basic Metabolic Panel; Future - CBC & Differential; Future - Ferritin; Future - Iron; Future - TSH Rfx On Abnormal To Free T4; Future - Hepatic Function Panel; Future 5. Hyperdynamic circulation Assessment & Plan: -LHC 03/30/25 NCA; EF >75% -04/25/25 Echo EF 66-70% -Drinking fluids. Check LFT's, Thyroid, Iron panel Orders: - Basic Metabolic Panel; Future - CBC & Differential; Future - Ferritin; Future - Iron; Future - TSH Rfx On Abnormal To Free T4; Future - Hepatic Function Panel; Future 6. Tobacco abuse Assessment & Plan: Continues to smoke Other orders - propranolol (INDERAL) 10 MG tablet; Take 0.5 tablets by mouth Every Night. Dispense: 45 tablet; Refill: 0 Assessment & Plan 1. Hypotension: - Propranolol dosage adjusted to half a tablet of 10 mg to be taken at night to provide heart protection while minimizing the impact on blood pressure. - Non-fasting lab tests ordered to investigate potential dehydration, anemia, or thyroid issues as causes for high ejection fraction. - Advised to monitor blood pressure and report any significant drops after medication adjustment. - Discussed potential side effects of propranolol, including dizziness and fatigue, and emphasized the importance of hydration. Follow-up: 08/2025 Recommendations: ER if symptoms increase and Report if any new/changing symptoms immediately Follow Up Return in about 3 months (around 08/29/2025) for Recheck; needs lab sheet. Patient or patient veterans employment representative verbalized consent for the use of Ambient Listening during the visit with Dolores Dhillon APRN for chart documentation. 05/30/2025 13:44 EDT Dolores Dhillon APRN 05/30/2025 Please note that this explicitly excludes time [...] Description 08/29/2025 10:30 AM EST Office Visit [facility] [address] [place] [address] Dolores Dhillon APRN [address] [facility] [place] [address] Scheduled Orders Name Type Priority Associated Diagnoses Orde r Schedule Basic Metabolic Panel Lab Routine Abnormal echocardiogram Hyperdynamic circulation Expected: 06/13/2025 (Approximate), Expires: 05/30/2026 CBC & Differential Lab Panel Routine Abnormal echocardiogram Hyperdynamic circulation Expected: 06/13/2025 (Approximate), Expires: 05/30/2026 Ferritin Lab Routine Abnormal echocardiogram Hyperdynamic circulation Expected: 06/13/2025 (Approximate), Expires: 05/30/2026 Iron Lab Routine Abnormal echocardiogram Hyperdynamic circulation Expected: 06/13/2025 (Approximate), Expires: 05/30/2026 TSH Rfx On Abnormal To Free T4 Lab Routine Abnormal echocardiogram Hyperdynamic circulation Expected: 06/13/2025 (Approximate), Expires: 05/30/2026 Hepatic Function Panel Lab Routine Abnormal echocardiogram Hyperdynamic circulation Expected: 06/04/2025 (Approximate), Expires: 08/29/2026 documented as of this encounter Visit Diagnoses Diagnosis Hyperlipidemia LDL goal <100- Primary Other and unspecified hyperlipidemia Hospital discharge follow-up Other follow-up examination Hypotension due to drugs Other iatrogenic hypotension Abnormal echocardiogram Nonspecific (abnormal) findings on radiological and other examination of other intrathoracic organs Hyperdynamic circulation Other symptoms involving cardiovascular system Tobacco abuse Tobacco use disorder documented in this encounter Care Teams Solar Business Developer Relationship Specialty Start Date End Date Zeb Rivero MD [facility] [address] [facility] [place] [address] PCP - General Adolescent Medicine 03/14/25 documented as of this encounter
--- OUTSIDE RECORDS SUMMARY | 2025-05-31 08:33 | XMS_ITS | Clinical Summary ---
Author Organization [facility] Address [address] [place] [address] Care Team Providers Care Sql Server Dba Developer Name Role Phone Zeb Rivero MD Primary Care Provider [phone] Allergies No known active allergies Medications pantoprazole [...] three doses 100 tablet 11 5 Active albuterol sulfate HFA 108 (90 Base) MCG/ACT inhaler Inhale 2 puffs. 5 Active atorvastatin (LIPITOR) 40 MG tablet Take 1 tablet by mouth every night at bedtime. 5 Active cyanocobalamin 1000 MCG/ML injection 1 mL. 5 Active propranolol (INDERAL) 10 MG tablet Take 0.5 tablets by mouth Every Night. 45 tablet 5 Active propranolol (INDERAL) 10 MG tablet Take 1/2 (one-half) tablet by mouth twice daily 45 tablet 5 05/30/20 Discontinued Active Problems Problem Noted Date Diagnosed Date H/O percutaneous left heart catheterization 10/2024 Overview (05/30/2025): 03/30/25 NCA; EF >75% Abnormal echocardiogram 05/30/2025 Hyperdynamic circulation 05/30/2025 Assessment & Plan (05/30/2025 1:38 PM EDT): -C 03/30/25 NCA; EF >75% -04/25/25 Echo EF 66-70% -Drinking fluids. Check LFT's, Thyroid, Iron panel Hypotension due to drugs 05/30/2025 Assessment & Plan (05/30/2025 1:40 PM EDT): -Already cutting Propranolol 10mg BID in half -Further decrease to 10mg half only at night - Let us know if hypotension does not resolve Hospital discharge follow-up 05/30/2025 Assessment & Plan (05/30/2025 1:40 PM EDT): - For hypotension - At [facility] -Waiting on records Hyperlipidemia LDL goal <100 05/30/2025 Assessment & Plan (05/30/2025 1:43 PM EDT): 03/30/2025 labs-A1c 5.8, cholesterol 254, triglycerides 151, HDL 57, LDL 170, creatinine/potassium/sodium normal, LFTs normal, eGFR 87, CBC normal. Was Started on Atorvastatin 40mg nightly. -Will recheck lipids at follow-up ALFREDO (obstructive sleep apnea) 03/14/2025 Overview (05/30/2025): Intolerant to CPAP Tobacco abuse 03/14/2025 Assessment & Plan (05/30/2025 1:38 PM EDT): Continues to smoke Bilateral leg edema 03/14/2025 Family history of premature CAD 03/14/2025 Gastritis Migraines Vitamin B12 deficiency Resolved Problems Problem Noted Date Diagnosed Date Resolved Date Arm edema 04/12/2025 05/30/2025 Chest pain, atypical 03/14/2025 025 Abnormal stress test 03/14/2025 025 Overview (05/30/2025): Followed by [facility] with NCA Encounters Date Type Department Care Team Description 05/30/2025 12:30 PM EDT Office Visit [facility] [address] [place] [address] Dolores Dhillon APRN Hyperlipidemia LDL goal <100 (Primary Dx); Hospital discharge follow-up; Hypotension due to drugs; Abnormal echocardiogram; Hyperdynamic circulation; Tobacco abuse 05/30/2025 Patient rounding ([facility] [facility] [address] [address] [place] [address] Dolores Dhillon APRN 05/30/2025 Travel 04/23/2025 Refill [facility] [place] [address] Dolores Dhillon APRN Med Refill 04/21/2025 10:30 AM EDT Ancillary Procedure [facility] [place] [address] Chest pain, atypical 04/21/2025 Travel 04/12/2025 10:00 AM EDT Office Visit [facility] [address] [place] [address] Dolores Dhillon APRN Chest pain, atypical (Primary Dx); Arm edema 04/12/2025 Travel 03/30/2025 12:00 PM EDT - 03/30/2025 1:00 PM EDT Surgery [facility] 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 [address] [place] [address] Shay Cain MD Left Heart Cath [53454 (CPT )] 03/30/2025 10:05 AM EDT - 03/30/2025 3:16 PM EDT Hospital Encounter [facility] [address] [place] [address] Shay Cain MD Vitamin B12 deficiency (Primary Dx); Chest pain, atypical; Abnormal stress test; Family history of premature CAD Discharge Disposition: Home or Self Care 03/30/2025 Travel 03/21/2025 Telephone [facility] [address] [place] [address] Dolores Dhillon APRN 03/14/2025 2:00 PM EDT Office Visit [facility] [address] [place] [address] Dolores Dhillon APRN Chest pain, atypical; Abnormal stress test; ALFREDO (obstructive sleep apnea); Bilateral leg edema; Family history of premature CAD 03/14/2025 Travel 03/14/2025 Telephone [facility] [address] [place] [address] Dolores Dhillon APRN from Last 3 Months [...] Pulse 60 05/30/2025 12:37 PM EDT Temperature 36.1 C (97 F) 03/30/2025 10:15 AM EDT Respiratory Rate 16 03/30/2025 11:40 AM EDT Oxygen Saturation 99% 05/30/2025 12:37 PM EDT Inhaled Oxygen Concentration - - Weight 48.5 kg (107 lb) 05/30/2025 12:37 PM EDT Height 149.9 cm (4' 11 ) 05/30/2025 12:37 PM EDT Body Mass Index 21.61 05/30/2025 12:37 PM EDT Plan of Treatment Upcoming Encounters Date Type Department Care Team (Late st Contact Info) Description 08/29/2025 10:30 AM EST Office Visit [facility] [address] [place] [address] Dolores Dhillon APRN [address] [place] [address] Health Maintenance Due Date Last Done [...] 2009 ZOSTER VACCINE (1 of 2) 2014 ANNUAL PHYSICAL 03/14/2025 HEPATITIS C SCREENING 03/14/2025 COVID-19 Vaccine (3 - 2024- season) 2025, 12/20/2020 INFLUENZA VACCINE 06/28/2025 LIPID PANEL 03/30/2026 03/30/2025 Procedures Procedure Name Priority Date/Time Associated Diagnosis Comments SCANNED EKG 05/28/2025 SCANNED - LABS 05/28/2025 SCANNED - IMAGING 05/28/2025 ECHO COMPLETE W/ DOPPLER AND COLOR FLOW [...] EDT from Last 3 Months Results * ECG Scan (05/28/2025) [facility] Clarita Dhillon APRN ECG ORDERABLES Fin al Result * IMAGING SCANNED (05/28/2025) Anatomical Region Laterality Modality Radiographic Olga ging Dolores Dhillon APRN IMG DIAGNOSTIC IMAG ING ORDERABLES Final Result * LABS SCANNED (05/28/2025) Dolores Dhillon APRN LAB BLOOD ORDERABLE S Final Result * ECHO COMPLETE W/ DOPPLER AND COLOR [...] found Sleep and/or Cardiology Consulting Provider Note ..[facility] FOLLOW UP (Pt states no [...] Smoker Edema on occasion Asymptomatic Bradycardia 03/30/25 [facility] Angiographically normal coronary arteries Hyperdynamic [...] Assessment & Plan 1. Chest pain: -03/2025 [facility] without intervention -STRONG family history [...] Return for after echo/CP. Patient or patient customer retention representative verbalized consent for the use ofAmbient [...] Dhillon APRN ECG ORDERABLES Fin al Result BH ECG * LEFT HEART CATH (03/30/2025 11:38 AM EDT) Cath EF Estimated 80 % Anatomical Region Laterality Modality X-Ray Angiograph y Narrative 03/30/2025 11:47 AM EDT Angiographically normal coronary arteries Hyperdynamic LVEF, greater than 75%. Procedure Narrative Left heart catheterization, ventriculography and coronary arteriography performed via the right radial artery using standard 6 Italian catheters. No complications. Hemostasis using a radial [...] - 1.30 mg/dL 03/30/2025 10:45 AM EDT [facility] Comment:Serial Number: [id number] 9Operator: [id number] Blood 03/30/2025 10:2 6 AM EDT 03/30/2025 10:45 AM EDT Shay Cain MD POINT OF CARE TEST ORDERABLES Final Result [facility]
[address] [place] [address], * CBC (No Diff) (03/30/2025 10:17 AM EDT) WBC 6.53 3.40 - 10.80 10*3/mm3 03/30/2025 10:33 AM EDT [facility] RBC 5.00 3.77 - 5.28 10*6/mm3 03/30/2025 10:33 AM EDT [facility] Hemoglobin 14.9 12.0 - 15.9 g/dL 03/30/2025 10:33 AM EDT [facility] Hematocrit 45.7 34.0 - 46.6 % 03/30/2025 10:33 AM EDT [facility] MCV 91.4 79.0 - 97.0 fL 03/30/2025 10:33 AM EDT [facility] MCH 29.8 26.6 - 33.0 pg 03/30/2025 10:33 AM EDT [facility] MCHC 32.6 31.5 - 35.7 g/dL 03/30/2025 10:33 AM EDT [facility] RDW 12.7 12.3 - 15.4 % 03/30/2025 10:33 AM EDT [facility] RDW-SD 42.6 37.0 - 54.0 fl 03/30/2025 10:33 AM EDT [facility] MPV 9.8 6.0 - 12.0 fL 03/30/2025 10:33 AM EDT [facility] Platelets 250 140 - 450 10*3/mm3 03/30/2025 10:33 AM EDT [facility] Blood Line / Unknown 03/30/2025 10 :17 AM EDT 03/30/2025 10:29 AM EDT us Krystal Soto APRN LAB BLOOD ORDERABLES Final Result Performing Organization Address [facility] Co de Phone Number [facility]
[address] [place] [address], * (ABNORMAL) Hemoglobin A1c (03/30/2025 10:17 AM EDT) Hemoglobin A1C 5.80(H) 4.80 - 5.60 % 03/30/2025 11:47 AM EDT [facility] Blood Line / Unknown 03/30/2025 10 :17 AM EDT 03/30/2025 10:29 AM EDT Narrative [facility] - 03/30/2025 11:47 AM EDT Hemoglobin A1C Ranges: Increased Risk for Diabetes 5.7% to 6.4% Diabetes >= 6.5% Diabetic Goal < 7.0% us Krystal Soto APRN LAB BLOOD ORDERABLES Final Result Performing Organization Address [facility] Co de Phone Number [facility]
[address] [place] [address], * (ABNORMAL) Lipid Panel (03/30/2025 10:17 AM EDT) Total Cholesterol 254(H) 0 - 200 mg/dL 03/30/2025 11:00 AM EDT [facility] Triglycerides 151(H) 0 - 150 mg/dL 03/30/2025 11:00 AM EDT [facility] HDL Cholesterol 57 40 - 60 mg/dL 03/30/2025 11:00 AM EDT [facility] LDL Cholesterol 170(H) 0 - 100 mg/dL 03/30/2025 11:00 AM EDT [facility] VLDL Cholesterol 27 5 - 40 mg/dL 03/30/2025 11:00 AM EDT [facility] LDL/HDL Ratio 2.93 03/30/2025 11:00 AM EDT [facility] Blood Line / Unknown 03/30/2025 10 :17 AM EDT 03/30/2025 10:29 AM EDT Narrative [facility] - 03/30/2025 11:00 AM EDT [...] Soto APRN LAB BLOOD ORDERABLES Final Result [facility]
[address] [place] [address], * Comprehensive Metabolic Panel (03/30/2025 10:17 AM EDT) Glucose 93 65 - 99 mg/dL 03/30/2025 11:00 AM EDT [facility] BUN 9.6 8.0 - 23.0 mg/dL 03/30/2025 11:00 AM EDT [facility] Creatinine 0.78 0.57 - 1.00 mg/dL 03/30/2025 11:00 AM EDT [facility] Sodium 143 136 - 145 mmol/L 03/30/2025 11:00 AM [facility] Potassium 4.6 3.5 - 5.2 mmol/L 03/30/2025 11:00 AM [facility] Chloride 106 98 - 107 mmol/L 03/30/2025 11:00 AM [facility] CO2 26.9 22.0 - 29.0 mmol/L 03/30/2025 11:00 AM [facility] Calcium 9.3 8.6 - 10.5 mg/dL 03/30/2025 11:00 AM [facility] Total Protein 6.6 6.0 - 8.5 g/dL 03/30/2025 11:00 AM [facility] Albumin 4.4 3.5 - 5.2 g/dL 03/30/2025 11:00 AM [facility] ALT (SGPT) 14 1 - 33 U/L 03/30/2025 11:00 AM [facility] AST (SGOT) 16 1 - 32 U/L 03/30/2025 11:00 AM [facility] Alkaline Phosphatase 77 39 - 117 U/L 03/30/2025 11:00 AM [facility] Total Bilirubin 0.3 0.0 - 1.2 mg/dL 03/30/2025 11:00 AM [facility] Globulin 2.2 gm/dL 03/30/2025 11:00 AM [facility] Comment:Calculated Result A/G Ratio 2.0 g/dL 03/30/2025 11:00 AM [facility] BUN/Creatinine Ratio 12.3 7.0 - 25.0 03/30/2025 11:00 AM [facility] Anion Gap 10.1 5.0 - 15.0 mmol/L 03/30/2025 11:00 AM [facility] eGFR 87.1 >60.0 mL/min/1.7 3 03/30/2025 11:00 AM EDT [facility] Blood Line / Unknown 03/30/2025 10 :17 AM EDT 03/30/2025 10:29 AM EDT Narrative [facility] - 03/30/2025 11:00 AM EDT [...] Soto APRN LAB BLOOD ORDERABLES Final Result [facility]
[address] [place] [address], from Last 3 Months Insurance [facility] Care Teams Sql Server Dba Developer Relationship Specialty Start Date End Date Zeb Rivero MD [address] [facility] [address] [place] [address] PCP - General Adolescent Medicine 03/14/25
--- OUTSIDE RECORDS SUMMARY | 2025-05-31 08:33 | XMS_ITS | Encounter Summary ---
Author Organization [facility] Address [address] [place] [address] Care Team Providers Care Sample Finisher Name Role Phone Zeb Rivero MD Primary Care Provider [phone] Reason for Visit * Reason Comments Med Refill Encounter Details Date Type Department Care Team (Late st Contact Info) Description 04/23/2025 Refill [facility] [address] [place] [address] Dolores Dhillon APRN [address] [place] [address] Med Refill Social History Tobacco [...] Description 08/29/2025 10:30 AM EST Office Visit [facility] [address] [place] [address] Dolores Dhillon APRN [address] [place] [address] documented as of this encounter Visit Diagnoses Not on filedocumented in this encounter Care Teams Sample Finisher Relationship Specialty Start Date End Date Zeb Rivero MD [address] [facility] [address] [place] [address] PCP - General Adolescent Medicine 03/14/25 documented as of this encounter
--- OUTSIDE RECORDS SUMMARY | 2025-05-31 08:33 | XMS_ITS | Encounter Summary ---
Author Organization [facility] Address [address] [place] [address] Care Team Providers Care And Taxi Instructor Bus Trolley Name Role Phone Zeb Rivero MD Primary Care Provider [phone] Encounter Details Date Type Department Care Team [...] Description 08/29/2025 10:30 AM EST Office Visit [facility] [address] [place] [address] Dolores Dhillon APRN [address] [place] [address] documented as of this encounter Visit Diagnoses Not on filedocumented in this encounter Care Teams And Taxi Instructor Bus Trolley Relationship Specialty Start Date End Date Zeb Rivero MD [address] [place] [address] PCP - General Adolescent Medicine 03/14/25 documented as of this encounter
--- OUTSIDE RECORDS SUMMARY | 2025-05-31 08:33 | XMS_ITS | Encounter Summary ---
Author Organization [facility] Address [address] [place] [address] Care Team Providers Care Chiropractic Teacher Name Role Phone Zeb Rivero MD Primary Care Provider [phone] Encounter Details Date Type Department Care Team [...] Description 08/29/2025 10:30 AM EST Office Visit [facility] [address] [place] [address] Dolores Dhillon APRN [address] [place] [address] documented as of this encounter Visit Diagnoses Not on filedocumented in this encounter Care Teams Chiropractic Teacher Relationship Specialty Start Date End Date Zeb Rivero MD [address] [place] [address] PCP - General Adolescent Medicine 03/14/25 documented as of this encounter
--- OUTSIDE RECORDS SUMMARY | 2025-05-31 08:34 | XMS_ITS | Encounter Summary ---
Author Organization [facility] Address [address] [place] [address] Care Team Providers Care Safety Aide Name Role Phone Zeb Rivero MD Primary Care Provider [phone] Encounter Details Date Type Department Care Team (Late st Contact Info) Description 05/30/2025 Patient rounding ([facility] [place] [facility] [address] [place] [address] Dolores Dhillon APRN [address] [place] [address] Social History Tobacco Use Types Packs/Day Years [...] on file documented as of this encounter Progress Notes * Mitzi Sales RegSched Rep - 05/30/2025 1:25 PM EDT ..My name is Carmenza Rodriguez and I am the Belt Maker for [facility]. I would like to thank you for being a loyal patient. If you do not mind I would like to ask you a few questions about your recent visit with us. Please feel free to reply if you wish to provide us with feedback on your first visit with our practice. First, could you tell me what went well with your recent visit? Secondly, we are always looking for ways to make our patients' experiences even better. Do you haveany recommendations on ways we may improve? Finally, overall were you satisfied with your first visit to us as a [facility] facility? In the next few days, you will be receiving a Patient Experience Survey. Thank you for taking the time to answer a few questions today. I hope you have a good day. documented in this encounter Plan of Treatment Upcoming Encounters Date Type Department Care Team (Late st Contact Info) Description 08/29/2025 10:30 AM EST Office Visit [facility] [address] [place] [address] Dolores Dhillon APRN [address] [place] [address] documented as of this encounter Visit Diagnoses Not on filedocumented in this encounter Care Teams Safety Aide Relationship Specialty Start Date End Date Zeb Rivero MD [address] [place] [address] [place] [address] PCP - General Adolescent Medicine 03/14/25 documented as of this encounter
--- OUTSIDE RECORDS SUMMARY | 2025-05-31 08:34 | XMS_ITS | Encounter Summary ---
Author Organization [facility] Address [address] [place] [address] Care Team Providers Care Geophysical Operator Name Role Phone Zeb Rivero MD Primary Care Provider [phone] Encounter Details Date Type Department Care Team (Latest Contact Info) Description 05/30/2025 Travel Social History Tobacco Use Types Packs/Day [...] Description 08/29/2025 10:30 AM EST Office Visit [facility] [address] [place] [address] Dolores Dhillon APRN [address] [place] [address] documented as of this encounter Visit Diagnoses Not on filedocumented in this encounter Care Teams Geophysical Operator Relationship Specialty Start Date End Date Zeb Rivero MD [address] [place] [address] PCP - General Adolescent Medicine 03/14/25 documented as of this encounter
[2025-05-31 08:59] LABS: Hematocrit 43.2 % (37.0-47.0); Hemoglobin 14.2 g/dL (12.2-16.2); Immature Granulocytes % 0.3 %; Mean Corpuscular HGB Conc 32.9 g/dL (31.8-35.4); Mean Corpuscular Hemoglobin 29.7 pg (27.0-31.2); Mean Corpuscular Volume 90.4 fl (81-99); Nucleated Red Blood Cells % 0 %; Platelet Count 254 K/mm3 (142-424); Red Blood Count 4.78 M/mm3 (4.20-5.40); Red Cell Distribution Width-SD 42.1 fL; White Blood Count 7.0 K/mm3 (4.8-10.8)
[2025-05-31 09:37] LABS: Alanine Aminotransferase 28 U/L (12-78); Albumin Level 4.4 g/dl (3.5-5.0); Alkaline Phosphatase 71 U/L (38-126); Anion Gap 10.5 mEq/L (5-15); Aspartate Amino Transferase 24 U/L (14-36); Bilirubin,Direct 0.2 mg/dl (0.0-0.4); Bilirubin,Indirect 0.4 mg/dL (0.0-0.9); Bilirubin,Total 0.6 mg/dl (0.2-1.3); Bilirubin,Unconjugated 0.4 mg/dL (0.0-1.1); Blood Urea Nitrogen 15 mg/dl (7-17); Calcium 10.9 mg/dl (8.4-10.2); Carbon Dioxide 31 mmol/L (22.0-30.0); Chloride 102 mmol/L (98-107); Creatinine,Serum 0.90 mg/dl (0.52-1.04); Estimated Glomerular Filt Rate 64 ml/min (>60); GFR (African American) 77 ML/MIN (>60); Glucose 102 mg/dl (74-100); Potassium 4.5 mmoL/L (3.5-5.1); Sodium 139 mmol/L (136-145); Total Protein,Serum 6.8 g/dl (6.3-8.2)
[2025-05-31 10:05] LABS: Thyroid Stimulating Hormone 1.83 uIU/mL (0.465-4.68)
[2025-05-31 13:11] LABS: Iron 78 ug/dL (37-170)
[2025-05-31 13:48] LABS: Ferritin 68.6 ng/ml (11.1-264)
== END 2025-05-31 23:59 | disposition home or self-care (01) ==
LOC: LAB 08:16
PROVIDERS: PCP Internal Medicine Adolescent Medicine; Visit Provider Nurse Practitioner Family
DX: R93.1 Abnormal findings on diagnostic imaging of heart and coronary circulation (principal); R09.89 Other specified symptoms and signs involving the circulatory and respiratory systems
CPT/HCPCS: 36415; 80048; 80076; 82728; 83540; 84443; 85025

== ENCOUNTER 2025-06-30 09:03 | Day surgery (SDC) | payer OTHER, SELFPAY ==
[2025-06-27 11:28] VITALS: BMI 23.2
--- NOTE | 2025-06-30 06:56 | EXP.GEN.HP ---
HPI HPI HPI: Patient is a 59-year-old female who presents for follow-up colonoscopy. I had seen her in the past for sebaceous cyst. She had a colonoscopy in 2017 which was limited due to a large complex polyp at the rectosigmoid region. She had follow-up colonoscopy with Dr. Casey on 09/09/2018. At that time findings included moderate bowel preparation, significant spasticity and tortuosity of the colon and sigmoid diverticulosis with multiple polyps. She had 4 polyps removed by snare. Pathology revealed sessile serrated adenoma of the cecum, tubular adenoma of the transverse colon and sigmoid colon. She did have a barium enema following that which revealed mild diverticulosis of the sigmoid colon otherwise unremarkable. She had a follow-up colonoscopy with Dr. Casey on 04/22/2022 at which time she had a fair bowel preparation, severe tortuosity of the colon, sigmoid diverticulosis, and a polyp (tubular adenoma) removed with snare at 25 cm. . [facility] Disclaimer: The information contained in this section may have been updated after the patient was seen, as this information can be updated by other users. Medical History Urinary tract infection Kidney stone Migraine Hyperlipidemia Surgical History Hx of cardiac cath History of hysterectomy History of cholecystectomy Family History Other Cancer Diabetes Heart disease Social History Smoking Status: Current every day smoker tobacco type: cigarettes packs per day: 1 alcohol intake: never substance use type: denies use current occupational status: unemployed Travel in the last 8 weeks?: None household members: spouse housing: house current occupational exposures/hazards: No caffeine: Yes Have you lived/traveled outside US in past 30 days?: No Contact w/someone who lives/traveled outside US past 30 days?: No Exposure to someone with infectious disease in past 14 days?: No Do you have a fever (greater than 100.4 F or 38 C)?: No Have you tested positive for COVID-19?: No Exposed to someone with COVID-19 in past 14 days?: No Do you have a sore throat?: No Do you have a cough?: No Do you have any weakness?: No Are you experiencing any nausea/vomitting?: No Do you have any diarrhea?: No Are you experiencing any unusual bleeding?: No Do you have any muscle aches/pain?: No Do you have any abdominal pain?: No Are you experiencing loss of taste or smell?: No Other Medical History Have you received the Flu Vaccine for this season: No Have you received the Pneumonia Vaccine: No Meds Home Medications and Allergies Home Medications ?Medication ?Instructions ?Recorded ?Confirmed ?Type acetaminophen 500 mg tablet 1,000 mg PO ONCE 05/07/23 06/27/25 History albuterol sulfate 90 mcg/actuation 2 inh inhalation NEEDED PRN soa 05/07/23 06/27/25 History aerosol inhaler aspirin 81 mg tablet,delayed 81 mg PO DAILY 05/07/23 06/27/25 History release (Adult Low Dose Aspirin) atorvastatin 20 mg tablet 20 mg PO HS 05/07/23 06/27/25 History famotidine 20 mg tablet 20 mg PO DAILY 05/07/23 06/27/25 History fluticasone propionate 50 1 spray intranasal DAILY 05/07/23 06/27/25 History mcg/actuation nasal spray,suspension ibuprofen 400 mg tablet 400 mg PO BID PRN headache 05/07/23 06/27/25 History mecobalamin (vitamin B12) 1,000 1,000 mcg sublingual DAILY 05/07/23 07/28/24 History mcg disintegrating tablet,sublingual cyproheptadine 4 mg tablet 4 mg PO HS per [place] for chronic 06/22/23 06/27/25 Rx headaches #30 tabs pantoprazole 40 mg tablet,delayed 40 mg PO DAILY #30 tabs 02/06/25 06/27/25 Rx release (Protonix) sodium,potassium,mag sulfates 17.5 See Rx Instructions PO .COMPLEX 05/17/25 06/02/25 Rx gram-3.13 gram-1.6 gram oral soln #354 mL (Suprep Bowel Prep Kit) peg 3350-electrolytes 236 240 ml PO Q10M #4,000 mL 06/06/25 Rx gram-22.74 gram-6.74 gram-5.86 gram solution (Golytely) cyanocobalamin (vitamin B-12) 1,000 mcg IM WEEKLY 06/27/25 06/27/25 History 1,000 mcg/mL injection solution propranolol 10 mg tablet 5 mg PO DAILY 06/27/25 06/27/25 History New Prescriptions to Start Prescriptions: Allergies Allergy/AdvReac Type Severity Reaction Status Date / Time No Known Allergies Allergy Verified 06/27/25 11:17 Exam Data for Last 24 hours I & O for Last 24 hours: Intake & Output 06/27/25 06/28/25 06/29/25 06/30/25 11:59 11:59 11:59 11:59 Weight 115 lb Constitutional Constitutional: no acute distress *Routine HEENT Exam Head: Present normocephalic Eye: Present EOMI and PERRL ENT: Present mucous membranes moist *Routine Neck Exam Neck: Present supple; Absent lymphadenopathy *Routine Respiratory Exam Respiratory: Present CTA bilaterally *Routine Cardiovascular Exam Cardiovascular: Present RRR *Routine Abdominal Exam Abdominal: Present soft and normoactive bowel sounds; Absent tenderness *Routine Rectal Exam Rectal:: deferred *Routine Genitalia Exam Genitalia:: deferred *Routine Extremities Exam Extremities: Absent cyanosis, clubbing or edema *Routine Skin Exam Skin: Present warm; Absent rash *Routine Neurological Exam Neurological: Present alert and oriented X3 Assessment and Plan *Assessment and plan (1) Tubular adenoma of colon: Status: Acute Category: Medical Code(s): D12.6 - Benign neoplasm of colon, unspecified
[2025-06-30 09:25] VITALS: BP 105/69; PULSE 70; RESP 16; TEMP 36.3; O2SAT 98; BMI 23.2
--- NOTE | 2025-06-30 09:32 | P.PCN_ITS ---
Procedure: Date: 06/30/25 Patient Date of :: 1965 Procedure Performed:: Total colonoscopy Indications:: Patient is a 59-year-old female who presents for follow-up colonoscopy. I had seen her in the past for sebaceous cyst. She had a colonoscopy in 2016 which was limited due to a large complex polyp at the rectosigmoid region. She had follow-up colonoscopy with Dr. Casey on 09/09/2018. At that time findings included moderate bowel preparation, significant spasticity and tortuosity of the colon and sigmoid diverticulosis with multiple polyps. She had 4 polyps removed by snare. Pathology revealed sessile serrated adenoma of the cecum, tubular adenoma of the transverse colon and sigmoid colon. She did have a barium enema following that which revealed mild diverticulosis of the sigmoid colon otherwise unremarkable. She had a follow-up colonoscopy with Dr. Casey on 04/22/2022 at which time she had a fair bowel preparation, severe tortuosity of the colon, sigmoid diverticulosis, and a polyp (tubular adenoma) removed with snare at 25 cm. . Performing Provider:: Sigifredo Goddard MD Referring Provider:: Katina Johansen . Sedation:: MAC sedation . Procedure:: Patient history was obtained and appropriate physical examination was performed. Patient's medications and allergies were reviewed. Informed consent was obtained after explaining the benefits, alternatives, and risks of the procedure including, but not limited to, bleeding, perforation, missed lesions, and adverse reaction to anesthesia medications. Patient was transported to endoscopy procedure room. Patient was connected to [employer] onADINCONing devices. Throughout the procedure the patient's blood pressure, pulse, and oxygen saturations were monitored continuously. Patient identification and planned procedure were verified by the staff. Patient was positioned in lateral decubitus position. Digital anorectal exam was performed. Variable stiffness Olympus colonoscope was inserted and advanced under direct visualization to the cecum. Adequacy of the colonic preparation was noted. The colonoscope was advanced a short distance into the terminal ileum. The colonoscope was then slowly withdrawn while carefully examining the color, texture, anatomy, and integrity of the mucosoa circumferentially. Within the rectum retroflexion was performed. Colonoscope was then withdrawn. Impression: Upon initial insertion of the colonoscope there was noted to be some stool ball and opaque liquid stool within the rectum. Colonoscope was advanced beyond this and there was some vegetable matter and opaque stool encountered in the sigmoid. Consideration was being given for possible termination of procedure. However colonoscope was advanced beyond this and the proximal colon had relatively decent prep. Colonoscope was able to be advanced to the cecum with use of abdominal pressure. It was advanced into the terminal ileum. Colonoscope was slowly withdrawn with surveillance with high-volume trans colonoscopic irrigation and suctioning. Within the sigmoid colon and rectosigmoid region there was undigested vegetable matter consistent with corn along with opaque stool. Despite high-volume trans colonoscopic irrigation and suctioning this was unable to be fully cleared. Colonoscope was withdrawn. Findings:: Poor prep with a few solid small stool balls with opaque particulate stool and undigested vegetable matter (corn) Sigmoid diverticulosis Recommendations:: Recommend repeat colonoscopy in 6 months with actual low residue diet and maximum prep Complications:: None immediately apparent Estimated blood obtained (mL): 0 Colonoscopy Component Colonoscopy Component Was a colonoscopy performed during today's procedure?: Yes Recommended follow up colonoscopy of at least 10 years?: No If no, follow up colonoscopy recommended in ___ years?: See above Reason for not recommending >/= 10 yr follow-up interval?: See above
[2025-06-30] MEDS: LACTATED RINGERS 1000ML 1,000 ML 50 ML IV (09:37)
--- NOTE | 2025-06-30 09:39 | P.PNANES_ITS ---
[facility] Disclaimer: The information contained in this section may have been updated after the patient was seen, as this information can be updated by other users. Medical History Urinary tract infection Kidney stone Migraine Hyperlipidemia Surgical History Hx of cardiac cath History of hysterectomy History of cholecystectomy Family History Other Cancer Diabetes Heart disease Social History Smoking Status: Current every day smoker tobacco type: cigarettes packs per day: 1 alcohol intake: never substance use type: denies use current occupational status: unemployed Travel in the last 8 weeks?: None household members: spouse housing: house current occupational exposures/hazards: No caffeine: Yes Have you lived/traveled outside [place] in past 30 days?: No Contact w/someone who lives/traveled outside [place] past 30 days?: No Exposure to someone with infectious disease in past 14 days?: No Do you have a fever (greater than 100.4 F or 38 C)?: No Have you tested positive for COVID-19?: No Exposed to someone with COVID-19 in past 14 days?: No Do you have a sore throat?: No Do you have a cough?: No Do you have any weakness?: No Are you experiencing any nausea/vomitting?: No Do you have any diarrhea?: No Are you experiencing any unusual bleeding?: No Do you have any muscle aches/pain?: No Do you have any abdominal pain?: No Are you experiencing loss of taste or smell?: No [facility] Anesthesia Checklist Patient Identification Patient Identification: Arm Band and Verbal (Name & ) Structural Data Admitted From: Home Planned Operative Procedure/s: colonscopy Consent for Planned Operative Procedure(s) Verified: Yes Verified Documents: Surgical Consent and History and Physical NPO Status Verified Time NPO: 00:00 Additional verifications Anesthesia Reactions: No Hx Blood Transfusions: No Blood Transfusion Reaction: No Previous Colonoscopy: Yes Airway Assessment Mallampati Score:: Class II Dentition: Good Dentition Neurological Assessment Level of Consciousness: Awake, Alert and Appropriate Hx Seizures: No Numbness or tingling in extremities: No Anesthesia Plan Anesthesia Risk discussed: Yes Anesthesia Plan: Verified ASA Class: II Anesthesia Type: MAC
[2025-06-30 10:17] VITALS: BP 94/58; PULSE 98; RESP 16; TEMP 36.3; O2SAT 99
[2025-06-30 10:27] VITALS: BP 102/66; PULSE 77; RESP 16; TEMP 36.3; O2SAT 100
[2025-06-30 10:37] VITALS: BP 109/69; PULSE 73; RESP 16; TEMP 36.3; O2SAT 100
[2025-06-30 10:47] VITALS: BP 106/70; PULSE 72; RESP 16; TEMP 36.3; O2SAT 100
== END 2025-06-30 10:47 | disposition home or self-care (01) ==
PROVIDERS: PCP Nurse Practitioner Family; Visit Provider Surgery
PROC: 0DJD8ZZ Inspection of Lower Intestinal Tract, Via Natural or Artificial Opening Endoscopic (ICD-10-PCS; CPT 45378; principal; 2025-06-30 10:30)
DX: Z12.11 Encounter for screening for malignant neoplasm of colon (principal); K57.30 Diverticulosis of large intestine without perforation or abscess without bleeding; D12.6 Benign neoplasm of colon, unspecified; E78.5 Hyperlipidemia, unspecified; I10 Essential (primary) hypertension; F17.210 Nicotine dependence, cigarettes, uncomplicated; G43.909 Migraine, unspecified, not intractable, without status migrainosus; Z90.49 Acquired absence of other specified parts of digestive tract; Z86.0101 Personal history of adenomatous and serrated colon polyps; Z79.1 Long term (current) use of non-steroidal anti-inflammatories (NSAID); Z79.891 Long term (current) use of opiate analgesic; Z79.899 Other long term (current) drug therapy
CPT/HCPCS: 45378; J2003; J2704; J7120